=== PATIENT | male | born 1985 | race Caucasian/White ===

== ENCOUNTER 2020-09-04 08:48 | Inpatient (IN) | payer OTHER, SELFPAY ==
--- NOTE | ~2020-09-04 | CT_ITS ---
EXAMINATION: CT ABDOMEN AND PELVIS WITHOUT CONTRAST CLINICAL INFORMATION: Epigastric pain COMPARISON: Previous abdominal ultrasound November 2016 TECHNIQUE: Multidetector volumetric imaging was performed from the superior aspect of the liver through the pubic symphysis. Sagittal and coronal reformatted images were obtained on the technologist's workstation. This CT examination was performed using dose optimization techniques as appropriate, variously including the following: *Automated exposure control *Adjustment of mA and/or kV according to patient size (this includes techniques or standardized protocols for targeted exams where dose is matched to indication/reason for exam; i.e. extremities or head) *Use of iterative reconstruction technique DLP: 919 mGy-cm FINDINGS: LUNG BASES: The visualized lung bases are unremarkable. LIVER, GALLBLADDER, AND BILIARY TREE: The liver is enlarged and low in attenuation consistent with fatty infiltration. The right lobe measures 30 cm in length. The liver is normal in contour. No focal liver lesion is seen. The gallbladder is normal. There is no biliary duct dilatation. PANCREAS: Unremarkable. SPLEEN: Unremarkable. ADRENAL GLANDS: Unremarkable. KIDNEYS AND URETERS: The kidneys are normal in size, shape, and attenuation. No hydronephrosis, hydroureter, or calculi seen. No perinephric stranding. BLADDER: Unremarkable. GASTROINTESTINAL TRACT: There is nonspecific fatty infiltration of the wall of the colon involving the right transverse and left colon. No evidence of active colitis or diverticulitis.. The small and large bowel are otherwise unremarkable. The appendix is unremarkable. The stomach is unremarkable. ABDOMINAL WALL: There is a small umbilical hernia containing fat. LYMPH NODES: Normal. VASCULAR: Unremarkable. PELVIC VISCERA: Unremarkable. OSSEOUS STRUCTURES: There is mild degenerative disc disease at L5-S1. CT/CT abdomen pelvis wo con IMPRESSION: Very enlarged fatty liver. Nonspecific fatty infiltration of the wall of the colon
--- NOTE | ~2020-09-04 | US_ITS ---
EXAMINATION: US ABDOMEN COMPLETE CLINICAL INFORMATION: Alcoholic hepatitis. Increasing T/D bili. Abdominal pain.. COMPARISON: CT dated 09/04/2020 TECHNIQUE: Real-time imaging of the abdominal viscera. FINDINGS: PANCREAS: Normal. ABDOMINAL AORTA: The proximal, mid, and distal segments are normal in caliber. INFERIOR VENA CAVA: Visualized portions are normal. LIVER: Enlarged and diffusely increased in echogenicity compatible with fatty infiltration and/or steatohepatitis. No focal liver lesions. No intra or extrahepatic biliary dilatation. GALLBLADDER: The gallbladder wall along the hepatic parenchyma is thickened and edematous measuring up to 9 mm, likely reactive to hepatocellular disease. No cholelithiasis. COMMON BILE DUCT: Normal in caliber measuring 0.5 cm in diameter. RIGHT KIDNEY: Normal. No hydronephrosis. No renal calculi or focal parenchymal lesions. The kidney measures 13.9 cm in maximum dimension. LEFT KIDNEY: Normal. No hydronephrosis. No renal calculi or focal parenchymal lesions. The kidney measures 12.3 cm in maximum dimension. SPLEEN: Normal. The spleen measures 15.5 cm in maximum dimension. FREE FLUID: None. US/US abdomen complete IMPRESSION: * Hepatomegaly and diffuse fatty infiltration/steatohepatitis. * No intra or extra hepatic biliary dilatation. * Gallbladder wall thickening along the hepatic parenchyma likely reactive to hepatocellular disease. * No cholelithiasis. * Mild splenomegaly.
--- NOTE | 2020-09-04 10:09 | ED.ABDPAIN ---
HPI - Abdominal Pain General Chief Complaint: Abdominal Pain Stated Complaint: pancreatitis Time Seen by Provider: 09/04/20 10:09 Source: patient Mode of arrival: ambulatory Limitations: no limitations History of Present Illness HPI narrative: 34 yo male with ETOH abuse hx of pancreatitis has been on binge x 1 month last drink this AM - c/o worsening pain with n/v x 2 weeks feels like his pancreatitis MD elicited complaint: abdominal pain Pertinent past history: gastritis and other (pancreatitis) Onset (ago): week(s) (2) Pain Consistency: constant Location: epigastric Severity: moderate Quality: sharp Radiation: bilateral flank Migration to: no migration Exacerbating factors: vomiting and movement Relieving factors: nothing Context: history of similar episodes and other (ETOH abuse) Associated symptoms: nausea and vomiting Related Data Home Medications Medication Instructions Recorded Confirmed amlodipine 5 mg PO DAILY 09/04/20 09/04/20 clonazepam 0.5 mg PO BID PRN 09/04/20 09/04/20 escitalopram oxalate 10 mg PO DAILY 09/04/20 09/04/20 gemfibrozil 600 mg PO BIDAC 09/04/20 09/04/20 omeprazole 20 mg PO DAILY 09/04/20 09/04/20 Allergies Allergy/AdvReac Type Severity Reaction Status Date / Time No Known Allergies Allergy Unverified 04/13/20 16:55 [No Known Allergies*] Review of Systems Review of Systems Constitutional : No Weight loss, No Fever, No Chills ENT/Mouth : No sore throat, No Rhinorrhea Eyes: No Swelling, No Redness Cardiovascular : No Chest Pain, No SOB, NoEdema Respiratory : No Cough, No Sputum, No Wheezing Gastrointestinal : Positive Nausea, Positive Vomiting, no Diarrhea, positive abdominal Pain, No Hematochezia, No Melena Genitourinary : No Dysuria, No Urinary Frequency, No Hematuria, No Urgency Musculoskeletal : No joint pain, No Myalgias, No Joint Swelling Skin : No Skin Lesions, No rash Neuro : No Weakness, No Numbness, No Dizziness, No Headache Psych : No Anxiety/Panic, No Depression Heme/Lymph: No Bruising, No Lymphadenopathy Endocrine : No Polyuria, No Polydipsia All other systems reviewed and are negative. Physical Exam Vital Signs: Vital Signs: Last Vital Signs Temp 98.6 F 09/04/20 15:12 Pulse 111 H 09/04/20 15:12 Resp 20 09/04/20 15:12 BP 136/92 H 09/04/20 15:12 Pulse Ox 96 09/04/20 15:12 Body Mass Index 33.5 Appearance: Alert. Oriented X3. Anxious in pain mild acute distress. Eyes: Pupils equal, round and reactive to light. mild yellowing of eyes ENT: Pharynx dry MM Neck: Normal inspection. Neck supple. CVS: tachycardic heart rate and rhythm. Pulses normal. Respiratory: No respiratory distress. Breath sounds normal. Abdomen: Soft and moderate epigastric pain with ttp and guarding no rebound Skin: Skin warm and dry. Normal skin color. Normal skin turgor. Extremities: No lower extremity edema. No calf ttp Neuro: Oriented X 3. No motor deficit. No sensory deficit. slight tremors Course Course Course Narrative: withdrawal symptoms improved, likely ETOH hepatitis new onset change in bili, will admit for further workup at this time, already on phenobarb protocol MDM - Abdominal Pain MDM Narrative Medical decision making narrative: 34 yo male with ETOH abuse binge x 1 month, last drink this AM c/o pain with n/v x 2 weeks feels like pancreatitis, will need labs, IVF x 2L IV ativan and morphine for pain, phenobarb protocol, CT scan to evaluate pancreas - given presentation and exam suspect admission likely. Lab Data Result diagrams: 09/04/20 10:53 09/04/20 10:53 Labs: Lab Results 09/04/20 09/04/20 09/04/20 Range/Units 10:53 10:53 10:53 WBC 3.0 L (4.8-10.8) X10*3/uL RBC 4.29 L (4.60-5.80) X10*6/uL Hgb 13.8 L (14.0-18.0) g/dl Hct 40.9 L (42-52) % MCV 95.3 (80-98) fL MCH 32.2 (27.0-33.0) pg MCHC 33.7 (31.0-36.0) g/dl RDW 13.0 (11.0-16.0) % Plt Count 116 L (160-400) X10*3/uL MPV 10.3 (9.4-12.4) fL Immature Gran % (Auto) 0.7 H (0.0-0.4) % Neut % (Auto) 52.5 (45-73) % Lymph % (Auto) 32.2 (20-40) % [place] % (Auto) 12.3 H (2-11) % Eos % (Auto) 1.0 (0-4) % Baso % (Auto) 1.3 (0-2) % Lymph # (Auto) 1.0 L (1.2-4.9) X10*3/uL [place] # (Auto) 0.4 (0.1-1.2) X10*3/uL Eos # (Auto) 0.0 (0.0-0.4) X10*3/uL Baso # (Auto) 0.0 (0.0-0.2) X10*3/uL Abs Immat Gran (auto) 0.02 (0.00-0.03) X10*3/uL Absolute Neuts (auto) 1.6 L (2.0-8.3) X10*3/uL Absolute Nucleated RBC 0.000 (0.0-0.012) X10*3/uL Nucleated RBC % (auto) 0.0 (0.0-0.2) /100WBC Smear Tech's Comments Not Reportable PT 14.5 H (10.8-13.0) SEC INR 1.2 H (0.9-1.1) APTT 51.3 H (24.1-38.0) SEC Hold Blue Top SEE NOTE Sodium 135 (135-145) mmol/L Potassium 3.9 (3.3-5.1) mmol/L Chloride 97 (96-108) mmol/L Carbon Dioxide 24 (22-29) mmol/L Anion Gap 18 (12-20) BUN 2 L (9-16) mg/dL Creatinine 0.65 (0.5-1.4) mg/dL Estim Creat Clear Calc 204.9 Estimated GFR > 60 Random Glucose 295 H (60-115) mg/dL Lactic Acid (0.5-2.0) mmol/L Calcium 8.3 L (8.4-10.2) mg/dL Magnesium 1.9 (1.6-2.6) mg/dL Total Bilirubin 4.9 H (0.0-1.0) mg/dL Direct Bilirubin 3.6 H (0.0-0.5) mg/dL AST 323 H (5-37) U/L ALT 123 H (0-40) U/L Alkaline Phosphatase 243 H (39-117) U/L Lactate Dehydrogenase 516 H (118-273) U/L Total Protein 7.6 (6.5-8.0) g/dL Albumin 3.8 (3.5-5.0) g/dL Lipase (8-78) U/L Urine Opiates Screen (Not Detect) Ur Barbiturates Screen (Not Detect) Ur Phencyclidine Scrn (Not Detect) Ur Amphetamines Screen (Not Detect) U Benzodiazepines Scrn (Not Detect) Urine Cocaine Screen (Not Detect) U Marijuana (THC) Screen (Not Detect) Ethyl Alcohol mg/dL COVID-19 ([facility]) (Negative) COVID-19 Clin Com 09/04/20 09/04/20 09/04/20 Range/Units 10:53 10:53 10:53 WBC (4.8-10.8) X10*3/uL RBC (4.60-5.80) X10*6/uL Hgb (14.0-18.0) g/dl Hct (42-52) % MCV (80-98) fL MCH (27.0-33.0) pg MCHC (31.0-36.0) g/dl RDW (11.0-16.0) % Plt Count (160-400) X10*3/uL MPV (9.4-12.4) fL Immature Gran % (Auto) (0.0-0.4) % Neut % (Auto) (45-73) % Lymph % (Auto) (20-40) % [place] % (Auto) (2-11) % Eos % (Auto) (0-4) % Baso % (Auto) (0-2) % Lymph # (Auto) (1.2-4.9) X10*3/uL [place] # (Auto) (0.1-1.2) X10*3/uL Eos # (Auto) (0.0-0.4) X10*3/uL Baso # (Auto) (0.0-0.2) X10*3/uL Abs Immat Gran (auto) (0.00-0.03) X10*3/uL Absolute Neuts (auto) (2.0-8.3) X10*3/uL Absolute Nucleated RBC (0.0-0.012) X10*3/uL Nucleated RBC % (auto) (0.0-0.2) /100WBC Smear Tech's Comments PT (10.8-13.0) SEC INR (0.9-1.1) APTT (24.1-38.0) SEC Hold Blue Top Sodium (135-145) mmol/L Potassium (3.3-5.1) mmol/L Chloride (96-108) mmol/L Carbon Dioxide (22-29) mmol/L Anion Gap (12-20) BUN (9-16) mg/dL Creatinine (0.5-1.4) mg/dL Estim Creat Clear Calc Estimated GFR Random Glucose (60-115) mg/dL Lactic Acid (0.5-2.0) mmol/L Calcium (8.4-10.2) mg/dL Magnesium (1.6-2.6) mg/dL Total Bilirubin (0.0-1.0) mg/dL Direct Bilirubin (0.0-0.5) mg/dL AST (5-37) U/L ALT (0-40) U/L Alkaline Phosphatase (39-117) U/L Lactate Dehydrogenase (118-273) U/L Total Protein (6.5-8.0) g/dL Albumin (3.5-5.0) g/dL Lipase 23 (8-78) U/L Urine Opiates Screen (Not Detect) Ur Barbiturates Screen (Not Detect) Ur Phencyclidine Scrn (Not Detect) Ur Amphetamines Screen (Not Detect) U Benzodiazepines Scrn (Not Detect) Urine Cocaine Screen (Not Detect) U Marijuana (THC) Screen (Not Detect) Ethyl Alcohol 90 mg/dL COVID-19 ([facility]) Negative (Negative) COVID-19 Clin Com See Note 09/04/20 09/04/20 Range/Units 10:53 12:48 WBC (4.8-10.8) X10*3/uL RBC (4.60-5.80) X10*6/uL Hgb (14.0-18.0) g/dl Hct (42-52) % MCV (80-98) fL MCH (27.0-33.0) pg MCHC (31.0-36.0) g/dl RDW (11.0-16.0) % Plt Count (160-400) X10*3/uL MPV (9.4-12.4) fL Immature Gran % (Auto) (0.0-0.4) % Neut % (Auto) (45-73) % Lymph % (Auto) (20-40) % [place] % (Auto) (2-11) % Eos % (Auto) (0-4) % Baso % (Auto) (0-2) % Lymph # (Auto) (1.2-4.9) X10*3/uL [place] # (Auto) (0.1-1.2) X10*3/uL Eos # (Auto) (0.0-0.4) X10*3/uL Baso # (Auto) (0.0-0.2) X10*3/uL Abs Immat Gran (auto) (0.00-0.03) X10*3/uL Absolute Neuts (auto) (2.0-8.3) X10*3/uL Absolute Nucleated RBC (0.0-0.012) X10*3/uL Nucleated RBC % (auto) (0.0-0.2) /100WBC Smear Tech's Comments PT (10.8-13.0) SEC INR (0.9-1.1) APTT (24.1-38.0) SEC Hold Blue Top Sodium (135-145) mmol/L Potassium (3.3-5.1) mmol/L Chloride (96-108) mmol/L Carbon Dioxide (22-29) mmol/L Anion Gap (12-20) BUN (9-16) mg/dL Creatinine (0.5-1.4) mg/dL Estim Creat Clear Calc Estimated GFR Random Glucose (60-115) mg/dL Lactic Acid 3.4 H* (0.5-2.0) mmol/L Calcium (8.4-10.2) mg/dL Magnesium (1.6-2.6) mg/dL Total Bilirubin (0.0-1.0) mg/dL Direct Bilirubin (0.0-0.5) mg/dL AST (5-37) U/L ALT (0-40) U/L Alkaline Phosphatase (39-117) U/L Lactate Dehydrogenase (118-273) U/L Total Protein (6.5-8.0) g/dL Albumin (3.5-5.0) g/dL Lipase (8-78) U/L Urine Opiates Screen POSITIVE H (Not Detect) Ur Barbiturates Screen Not Detected (Not Detect) Ur Phencyclidine Scrn Not Detected (Not Detect) Ur Amphetamines Screen Not Detected (Not Detect) U Benzodiazepines Scrn Not Detected (Not Detect) Urine Cocaine Screen Not Detected (Not Detect) U Marijuana (THC) Screen Not Detected (Not Detect) Ethyl Alcohol mg/dL COVID-19 ([facility]) (Negative) COVID-19 Clin Com Critical Care Time Critical Care Time Critical Care Time: Yes Total Critical Care Time: 60 Attestation: IVF x 2L , phenobarb protocol, review of records, rn cardiac rehab I attest to this time spent taking care of the patient Discharge Plan Discharge Clinical Impression: Acute alcoholic hepatitis Alcohol withdrawal Qualifiers: Complication of substance-induced condition: uncomplicated Qualified Code(s): F10.230 - Alcohol dependence with withdrawal, uncomplicated Nausea & vomiting Qualifiers: Vomiting type: unspecified Vomiting Intractability: non-intractable Qualified Code(s): R11.2 - Nausea with vomiting, unspecified Patient Disposition: Admitted As Inpatient [facility] Past Medical History Attestation statement: The following information was validated with the patient. Medical History (Updated 09/04/20 @ 14:31 by JERMAN Salcido) Alcoholism Anxiety Depression Hypertension with normal renal function Pancreatitis Family History Family History Other HTN (hypertension) Social History Social History (Updated 09/04/20 @ 14:32 by JERMAN Salcido) Alcohol intake: current Alcohol intake frequency: 3 or more drinks per day Smoking Status: Current every day smoker Cigarettes Per Day: 4 Use of substances other than those prescribed or required for medical reasons: No Substance Use Type: Marijuana Advance Directives: No Advance Directives Information Provided: No
[2020-09-04 10:19] VITALS: BP 135/93; PULSE 116; RESP 18; O2SAT 96; BMI 33.5
[2020-09-04 11:04] LABS: Imm Gran Abs Auto 0.02 X10*3/uL (0.00-0.03); MANUAL DIFF FLAG SCAN; Monocytes Percent Auto 12.3 % (2-11); Neutrophils Absolute Auto 1.6 X10*3/uL (2.0-8.3); PLT CLUMP 1; Red Blood Count 4.29 X10*6/uL (4.60-5.80); SCAN SMEAR FLAG 1
[2020-09-04 11:06] LABS: Basophils Percent Auto 1.3 % (0-2); Hematocrit 40.9 % (42-52); Hemoglobin 13.8 g/dl (14.0-18.0); Imm Gran Pct Auto 0.7 % (0.0-0.4); Lymphocytes Percent Auto 32.2 % (20-40); Mean Corpuscular HGB Conc 33.7 g/dl (31.0-36.0); Mean Corpuscular Hemoglobin 32.2 pg (27.0-33.0); Mean Corpuscular Volume 95.3 fL (80-98); Mean Platelet Volume 10.3 fL (9.4-12.4); Monocytes Absolute Auto 0.4 X10*3/uL (0.1-1.2); Neutrophils Percent Auto 52.5 % (45-73); Platelet Count 116 X10*3/uL (160-400)
[2020-09-04 11:07] LABS: INTERNATIONAL NORM RATIO 1.2 (0.9-1.1); Prothrombin Time 14.5 SEC (10.8-13.0)
[2020-09-04] MEDS: LORazepam 2 MG/ML VIAL 1 MG IVPUSH (11:07)
[2020-09-04] MEDS: ondansetron HCL 4 MG/2 ML VIAL IVPUSH (11:07)
[2020-09-04] MEDS: PHENobarbitaL sodium 130 MG/ML VIAL 310 MG IM (11:08)
[2020-09-04] MEDS: Morphine Sulfate 4 MG/ML CARTRIDGE IVPUSH (11:08)
[2020-09-04] MEDS: 0.9 % Sodium Chloride 1,000 ML 999 ML IVCONT ×2 (11:09→14:41)
[2020-09-04 11:10] LABS: Partial Thromboplastin Time 51.3 SEC (24.1-38.0)
[2020-09-04 11:16] LABS: COVID-19 Test Negative (Negative)
[2020-09-04 11:21] LABS: Ethanol 90 mg/dL
[2020-09-04 11:24] LABS: Lipase 23 U/L (8-78)
[2020-09-04 11:26] LABS: Alanine Aminotransferase 123 U/L (0-40); Albumin Level 3.8 g/dL (3.5-5.0); Alkaline Phosphatase 243 U/L (39-117); Anion Gap 18 (12-20); Aspartate Amino Transferase 323 U/L (5-37); Bilirubin Direct 3.6 mg/dL (0.0-0.5); Bilirubin Total 4.9 mg/dL (0.0-1.0); Blood Urea Nitrogen 2 mg/dL (9-16); Calcium 8.3 mg/dL (8.4-10.2); Carbon Dioxide 24 mmol/L (22-29); Chloride 97 mmol/L (96-108); Creatinine Clr Calc Pharmacy 204.9; Estimated Glomerular Filt Rate > 60; Glucose Random 295 mg/dL (60-115); Lactate Dehydrogenase 516 U/L (118-273); Magnesium 1.9 mg/dL (1.6-2.6); Potassium 3.9 mmol/L (3.3-5.1); Sodium 135 mmol/L (135-145); Total Protein 7.6 g/dL (6.5-8.0)
[2020-09-04 11:27] LABS: Lactic Acid 3.4 mmol/L (0.5-2.0)
[2020-09-04 12:46] VITALS: BP 150/94; PULSE 111; RESP 18; O2SAT 97
[2020-09-04 12:57] LABS: Reflex Lactate? Lactic Acid Added
[2020-09-04 13:35] LABS: Amphetamine Screen Urine Not Detected (Not Detect); Barbiturates, Urine Not Detected (Not Detect); Benzodiazepines Screen Urine Not Detected (Not Detect); Cannabinoid Screen Urine Not Detected (Not Detect); Cocaine Screen Urine Not Detected (Not Detect); Opiate Screen Urine POSITIVE (Not Detect); Phencyclidine Screen Urine Not Detected (Not Detect)
--- NOTE | 2020-09-04 14:27 | P.HPHOSP_ITS ---
History of Present Illness Date of Service: 09/04/20 Chief Complaint: abdominal pain This is a 34-year-old male with history of alcohol abuse who presents to the emergency department with abdominal pain. Patient has had several weeks of mild abdominal pain which has increased over the past few days. He reports e pigastric abdominal pain associated with nausea, vomiting. He had 1 episode with blood tinged emesis and this prompted him to come to the hospital for evaluation. He has had difficulty tolerating any liquid or solids. For the past several months he has been drinking heavily. Prior to that he had a year of sobriety but has been bingeing on and off for the past several years. Today in the emergency department he underwent a CT scan of the abdomen which did not show evidence of pancreatitis. His lab work was however abnormal with elevation in his liver function tests. He was started on phenobarbital for prevention of alcohol withdrawal. He also received IV fluid and decision was made to admit him for further management. Review of Systems Review of Systems: Yes all other systems are reviewed and are negative Constitutional: Constitutional: Denies chills and Denies fever(s) Cardiovascular: Cardiovascular: Denies chest pain and Denies dyspnea Respiratory: Respiratory: Denies cough and Denies dyspnea Gastrointestinal: Gastrointestinal: Reports abdominal pain, Reports loose stools, Reports nausea and Reports vomiting Genitourinary: Genitourinary: Denies dysuria [facility] Medical History (Updated 09/04/20 @ 14:31 by JERMAN Salcido) Alcoholism Anxiety Depression Hypertension with normal renal function Pancreatitis Functional capacity: independent ambulation Family History Other HTN (hypertension) Family history: reviewed and not pertinent Social History (Updated 09/04/20 @ 14:32 by JERMAN Salcido) Alcohol intake: current Alcohol intake frequency: 3 or more drinks per day Smoking Status: Current every day smoker Cigarettes Per Day: 4 Use of substances other than those prescribed or required for medical reasons: Yes Substance Use Type: Marijuana Advance Directives: No Advance Directives Information Provided: No Meds Allergies Allergy/AdvReac Type Severity Reaction Status Date / Time No Known Allergies Allergy Unverified 04/13/20 16:55 [No Known Allergies*] Physical Exam Vital Signs and Narrative: Vital Signs: Last Vital Signs Pulse 111 H 09/04/20 12:46 Resp 18 09/04/20 12:46 BP 150/94 H 09/04/20 12:46 Pulse Ox 97 09/04/20 12:46 Body Mass Index 33.5 Const: General: alert and awake Nutritional Appearance: overweight Orientation/consciousness: patient oriented x3 HENMT: Head: Yes normocephalic and Yes atraumatic Eyes: Sclerae: sclerae normal Chest: Chest palpation & inspection: normal inspection of the chest Resp: Effort & Inspection: normal respiratory effort and no respiratory distress Auscultation: clear to auscultation bilaterally Cardio: Rate: regular rate Rhythm: regular rhythm GI: Other: tender to palpation, epigastric region; non-distended Palpation (GI): Soft to palpation Skin: General skin exam: no rashes or lesions noted Neuro: General: patient oriented x3 Cranial nerves: Yes CN's II-XII intact bilaterally and Yes Bilaterally intact EOM present Extrem: General: Yes normal to inspection Results Labs CBC and Chem 7: 09/04/20 10:53 09/04/20 10:53 Labs: Laboratory Results - last 24 hr 09/04/20 09/04/20 09/04/20 10:53 10:53 10:53 MCV 95.3 MCH 32.2 MCHC 33.7 RDW 13.0 Plt Count 116 L MPV 10.3 Immature Gran % (Auto) 0.7 H Neut % (Auto) 52.5 Lymph % (Auto) 32.2 [place] % (Auto) 12.3 H Eos % (Auto) 1.0 Baso % (Auto) 1.3 Lymph # (Auto) 1.[address] [place] # (Auto) 0.4 Eos # (Auto) 0.0 Baso # (Auto) 0.0 Abs Immat Gran (auto) 0.02 Absolute Neuts (auto) 1.6 L Absolute Nucleated RBC 0.000 Nucleated RBC % (auto) 0.0 Smear Tech's Comments Not Reportable PT 14.5 H INR 1.2 H APTT 51.3 H Hold Blue Top SEE NOTE Anion Gap 18 Estim Creat Clear Calc 204.9 Estimated GFR > 60 Random Glucose 295 H Lactic Acid Calcium 8.3 L Magnesium 1.9 Total Bilirubin 4.9 H Direct Bilirubin 3.6 H AST 323 H ALT 123 H Alkaline Phosphatase 243 H Lactate Dehydrogenase 516 H Total Protein 7.6 Albumin 3.8 Lipase Urine Opiates Screen Ur Barbiturates Screen Ur Phencyclidine Scrn Ur Amphetamines Screen U Benzodiazepines Scrn Urine Cocaine Screen U Marijuana (THC) Screen Ethyl Alcohol COVID-19 ([facility]) COVID-19 Util[facility] Com 09/04/20 09/04/20 09/04/20 10:53 10:53 10:53 MCV MCH MCHC RDW Plt Count MPV Immature Gran % (Auto) Neut % (Auto) Lymph % (Auto) [place] % (Auto) Eos % (Auto) Baso % (Auto) Lymph # (Auto) [place] # (Auto) Eos # (Auto) Baso # (Auto) Abs Immat Gran (auto) Absolute Neuts (auto) Absolute Nucleated RBC Nucleated RBC % (auto) Smear Tech's Comments PT INR APTT Hold Blue Top Anion Gap Estim Creat Clear Calc Estimated GFR Random Glucose Lactic Acid Calcium Magnesium Total Bilirubin Direct Bilirubin AST ALT Alkaline Phosphatase Lactate Dehydrogenase Total Protein Albumin Lipase 23 Urine Opiates Screen Ur Barbiturates Screen Ur Phencyclidine Scrn Ur Amphetamines Screen U Benzodiazepines Scrn Urine Cocaine Screen U Marijuana (THC) Screen Ethyl Alcohol 90 COVID-19 ([facility]) Negative COVID-19 Util[facility] Com See Note 09/04/20 09/04/20 10:53 12:48 MCV MCH MCHC RDW Plt Count MPV Immature Gran % (Auto) Neut % (Auto) Lymph % (Auto) [place] % (Auto) Eos % (Auto) Baso % (Auto) Lymph # (Auto) [place] # (Auto) Eos # (Auto) Baso # (Auto) Abs Immat Gran (auto) Absolute Neuts (auto) Absolute Nucleated RBC Nucleated RBC % (auto) Smear Tech's Comments PT INR APTT Hold Blue Top Anion Gap Estim Creat Clear Calc Estimated GFR Random Glucose Lactic Acid 3.4 H* Calcium Magnesium Total Bilirubin Direct Bilirubin AST ALT Alkaline Phosphatase Lactate Dehydrogenase Total Protein Albumin Lipase Urine Opiates Screen POSITIVE H Ur Barbiturates Screen Not Detected Ur Phencyclidine Scrn Not Detected Ur Amphetamines Screen Not Detected U Benzodiazepines Scrn Not Detected Urine Cocaine Screen Not Detected U Marijuana (THC) Screen Not Detected Ethyl Alcohol COVID-19 ([facility]) COVID-19 Clin Com Imaging Radiologist's Impressions: Impressions Abdomen/Pelvis CT 09/04/20 10:25 IMPRESSION: Very enlarged fatty liver. Nonspecific fatty infiltration of the wall of the colon Assessment and Plan (1) Alcohol withdrawal: Qualifiers: Complication of substance-induced condition: uncomplicated Qualified Code(s): F10.230 - Alcohol dependence with withdrawal, uncomplicated Status: Acute (2) Acute alcoholic hepatitis: Status: Acute (3) Nausea & vomiting: Qualifiers: Vomiting Intractability: non-intractable Vomiting type: unspecified Qualified Code(s): R11.2 - Nausea with vomiting, unspecified Status: Acute This is a 34-year-old male with a history of alcohol abuse who presents to the emergency department with abdominal pain found to have abnormal liver function tests Abdominal pain No evidence of pancreatitis, normal lipase likely gastritis from etoh use-iv pepcid, ivf, clear liquid diet- ADAT etoh hepatitis Discriminant function 16.4, no indication for steroids supportive care trend LFTs, INR GI eval alcohol withdrawal continue phenobarbital started in ED thiamine and folate supplementation CARE team eval prior to discharge follow electrolytes pancytopenia r/t liver dysfunction follow cbc elevated lactic acid likely secondary to liver dysfunction no evidence of sepsis dvt ppx - boots code status - full code this case was discussed with Dr. Dave
[2020-09-04] MEDS: PHENobarbitaL sodium 130 MG/ML VIAL 230 MG IM ×2 (14:44→16:57)
[2020-09-04 15:12] VITALS: BP 136/92; PULSE 111; RESP 20; TEMP 37; O2SAT 96
[2020-09-04 16:42] LABS: Reflex Lactate? 2 Y
[2020-09-04 17:33] VITALS: BP 119/78; PULSE 102; RESP 19; TEMP 36.8; O2SAT 97
--- NOTE | 2020-09-04 17:51 | PM.EVENT ---
Event Note Date of Service: 09/04/20 Event Note: addendum to H+P by JERMAN Marcus I interviewed and examined the patient. I discussed their presentation and management with the mid-level provider. I reviewed the history and physical and agree with the documentation, with the following additions and corrections: 34yo M with HTN, EtOH abuse [1qt vodka/d] and prior EtOH withdrawal + pancreatitis presenting with several days of worsening abd pain and 1 episode of hematemesis on exam: VS T 98.2, P 102, R 19, BP 119/78, SaO2 97 on RA gen NAD sclera anicteric lungs clear CV tachycardic no m/r/g abd soft/obese, tender epigastrium, no rebound ext no edema neuro no focal findings labs notable for mild pancytopenia, INR 1.2, SCr 0.65, LA 3.4->3, Tbili 4.9, AST 323, ALT 123, LDH 516, lipase 23 CT A/P enlarged fatty liver, no pancreatitis impression of EtOH hepatitis + EtOH gastritis + withdrawal plan admit to M/S, give phenobarbital + vitamins, IV fluids, GI consult, PPI
--- NOTE | 2020-09-04 18:40 | MHC.CM.PN ---
Addendum entered by Nhung Carter 09/04/20 18:49: [place] text to Suzi STOLL to place referral to CARE Team. Original Note: Cm met with pt. A&Ox3. Pt lives with a roommate who has been sober x5 years. Pt has recurrent relapses and states he has had long periods of sobriety. 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 States the pandemic and the isolation have been really hard on him. States he has support groups he can contact and that his parents are very supportive. Offered graduation coach and recovery services, but pt declined. Again says he has people he can call and has a 1:1 therapist. CM gently suggested that this plan hasn't been working so well for him, given that he is being hospitalized and maybe he needs a different plan. Will place referral to Recovery services and CARE team. Pt request HCP be made. HCP Mary Lo (mother) [phone] and secondary, Jaime Teresita (father) [phone]. CM to follow for d/c needs.
[2020-09-04 20:38] VITALS: BP 122/87; PULSE 98; RESP 18; TEMP 36.7; O2SAT 99
[2020-09-04 21:30] LABS: ~Lactic Acid-LAB USE ONLY 2.5 mmol/L (0.5-2.0)
--- NOTE | 2020-09-04 23:10 | PC.NURSE ---
PT C/O ABD PAIN. MD AWARE AND PT MEDICATED WITH MORPHINE FOR PAIN. WILL CONTINUE TO MONITOR PT.
[2020-09-05] VITALS (9 sets, daily range): BP systolic 124–147; BP diastolic 81–94; PULSE 87–96; RESP 16–18; TEMP 36.8–36.9; O2SAT 97–99; BMI 33.5
[2020-09-05] MEDS: Morphine Sulfate 4 MG/ML CARTRIDGE IVPUSH (00:24)
--- NOTE | 2020-09-05 02:30 | PC.NURSE ---
NS UP AND RUNNING SITE INTACT. WILL CONTINUE TO MONITOR PT. PT AWAITING FOR ROOM ASSIGNMENT.
[2020-09-05] MEDS: Morphine Sulfate 2 MG/ML CARTRIDGE IVPUSH ×4 (03:46→20:57)
[2020-09-05] MEDS: 0.9 % Sodium Chloride Flush 3 ML SYRINGE IVFLUSH ×2 (04:46→16:16)
[2020-09-05] MEDS: 0.9 % Sodium Chloride 1,000 ML 125 ML IVCONT ×2 (04:46→16:17)
--- NOTE | 2020-09-05 05:41 | PC.NURSE ---
PT SLEEPING, WAKES TO VERBAL STIMULI, RESPIRATIONS EASY, N/L. SKIN W/D. PT DENIES ANY COMPLAINTS. NS UP AND RUNNING ON PUMP.
--- NOTE | 2020-09-05 06:06 | PC.NURSE ---
PT RESTING IN STRETCHER. SKIN W/D. PT DENIES ANY COMPLAINTS/PAIN. WILL CONTINUE TO MONITOR PT.
[2020-09-05 06:48] LABS: Hematocrit 38.1 % (42-52); Hemoglobin 12.6 g/dl (14.0-18.0); Mean Corpuscular HGB Conc 33.1 g/dl (31.0-36.0); Mean Corpuscular Hemoglobin 32.6 pg (27.0-33.0); Mean Corpuscular Volume 98.7 fL (80-98); Mean Platelet Volume 10.4 fL (9.4-12.4); Red Blood Count 3.86 X10*6/uL (4.60-5.80); Red Cell Distribution Width 13.2 % (11.0-16.0); White Blood Count 3.3 X10*3/uL (4.8-10.8)
[2020-09-05 06:52] LABS: Platelet Count 91 X10*3/uL (160-400)
[2020-09-05 07:02] LABS: INTERNATIONAL NORM RATIO 1.2 (0.9-1.1); Prothrombin Time 14.7 SEC (10.8-13.0)
[2020-09-05 07:12] LABS: Alanine Aminotransferase 96 U/L (0-40); Albumin Level 3.3 g/dL (3.5-5.0); Alkaline Phosphatase 198 U/L (39-117); Anion Gap 14 (12-20); Aspartate Amino Transferase 254 U/L (5-37); Bilirubin Total 6.8 mg/dL (0.0-1.0); Blood Urea Nitrogen 2 mg/dL (9-16); Calcium 7.5 mg/dL (8.4-10.2); Carbon Dioxide 26 mmol/L (22-29); Chloride 98 mmol/L (96-108); Creatinine Clr Calc Pharmacy 198.8; Estimated Glomerular Filt Rate > 60; Glucose Random 167 mg/dL (60-115); Magnesium 1.5 mg/dL (1.6-2.6); Potassium 4.1 mmol/L (3.3-5.1); Sodium 134 mmol/L (135-145); Total Protein 6.3 g/dL (6.5-8.0)
[2020-09-05] MEDS: Thiamine HCL 100 MG TABLET PO (08:50)
[2020-09-05] MEDS: Famotidine/PF 20 MG/2 ML VIAL IVPUSH (08:50)
[2020-09-05] MEDS: Magnesium Oxide 400 MG TABLET PO ×2 (08:50→16:16)
[2020-09-05] MEDS: PHENobarbitaL 30 MG TABLET 60 MG PO ×2 (08:50→20:54)
[2020-09-05] MEDS: Folic Acid 1 MG TABLET PO (08:50)
--- NOTE | 2020-09-05 10:51 | MHC.RECOVSUP ---
Recovery Support note: Patient is a 34 year old Niuean speaking male who presented to [facility] ED due to alcohol use and abdominal pain and was medically admitted. This rewriter met with patient in to discuss his alcohol use and treatment options. Patient was laying down in the hospital bed watching television when this rewriter entered the room. Patient was agreeable to consultation. Patient reports his alcohol use has been problematic for him since ' and that there is family history of alcoholism. Patient reports he has gone to [facility] in the past and has had periods of sobriety lasting over a year. Patient reports he has struggled with anxiety and depression in the past and that he would use alcohol to cope. Patient reports he has been in therapy for years and has developed coping skills for his anxiety and he reports treatment has been helpful. Patient reports that he was living alone at the start of the pandemic and was relying on AA meetings for support. When the AA meetings stopped, patient felt increasingly isolated. Patient reports that his work is stressful and that he started drinking again due to the isolation and stress. Patient reports he was too ashamed to seek help. Patient reports he now has a roommate who is 5 years sober and very supportive of patient's recovery. Patient reports his job is very understanding of the situation and that they are all rooting for him. Discussed virtual and in-person AA groups with patient and provided patient with information on these resources. Discussed IOP with patient. Patient was familiar and reports that he is in a dual diagnosis program through [facility] where he gets outpatient therapy. Discussed medications for alcohol use disorder. Patient was familiar and reports he has tried naltrexone in the past however did not find it helpful and reports that it interacted poorly with other medications he was prescribed. Encouraged patient to utilize the supports he has in place and to consider trying virtual AA groups if he cannot get to in-person groups. Patient was receptive of resources offered and has a positive outlook on his recovery moving forward. Discussed consultation with patient's RN, October.
--- NOTE | 2020-09-05 14:49 | P.PNIM_ITS ---
Subjective Subjective Date of Service: 09/05/20 Interval History: abd pain somewhat improved anxious no further hematemesis Physical Exam 2 Vital Signs: Vital Signs: Last Vital Signs Temp 98.4 F 09/05/20 13:47 Pulse 91 09/05/20 13:47 Resp 18 09/05/20 13:47 BP 141/86 H 09/05/20 13:47 Pulse Ox 99 09/05/20 13:47 Body Mass Index 33.5 Gen: in no acute distress HEENT: sclera anicteric, moist mucus membranes Neck: supple Lungs: clear to auscultation bilaterally Heart: regular rate and rhythm, no murmurs Abd: soft, mild epigastric tenderness without rebound, non-distended Ext: no edema Skin: warm/well-perfused Neuro: alert and oriented x3, no focal findings Psych: appropriate affect Objective Data Current Medications Generic Name Dose Route Start Last Admin Trade Name Freq PRN Reason Stop Dose Admin Docusate Sodium 100 mg 09/05/20 00:11 Docusate Sodium 100 Mg Capsule PO DAILY PRN Constipation Famotidine 20 mg 09/05/20 09:00 09/05/20 08:50 Famotidine/Pf 20 Mg/2 Ml Vial IVPUSH 20 mg DAILY DAX Administration Folic Acid 1 mg 09/05/20 09:00 09/05/20 08:50 Folic Acid 1 Mg Tablet PO 1 mg DAILY DAX Administration Hydroxyzine HCl 50 mg 09/05/20 07:37 Hydroxyzine Hcl 50 Mg Tablet PO Q6H PRN anxiety Sodium Chloride 1,000 mls @ 125 mls/hr 09/05/20 00:11 09/05/20 12:48 Ns IVCONT Infused .Q8H DAX Infusion Influenza Virus Vaccine Quadrival 0.5 ml 09/06/20 09:00 Flu Vacc [id number](6mos Up)/Pf 0.5 Ml Syringe IM 09/06/20 09:01 .ONCE ONE Magnesium Oxide 400 mg 09/05/20 08:30 09/05/20 08:50 Magnesium Oxide 400 Mg Tablet PO 400 mg BIDPC DAX Administration Medication 1 each 09/05/20 09:00 No Benzodiazepines MISCELLANE DAILY DAX Morphine Sulfate 2 mg 09/05/20 00:11 09/05/20 12:50 Morphine Sulfate 2 Mg/Ml Cartridge IVPUSH 2 mg Q4H PRN Administration Pain, Severe (Pain Scale 7-10) Ondansetron HCl 4 mg 09/05/20 00:11 Ondansetron Hcl 4 Mg/2 Ml Vial IVPUSH Q8H PRN Nausea and Vomiting Pharmacy Consult 1 each 09/04/20 15:34 Consult Rx Perform Med Rec MISCELLANE ONCE PRN Consult order Phenobarbital 60 mg 09/05/20 09:00 09/05/20 08:50 Phenobarbital 30 Mg Tablet PO 09/06/20 21:01 60 mg BID DAX Administration Phenobarbital 30 mg 09/07/20 09:00 Phenobarbital 30 Mg Tablet PO 09/08/20 21:01 BID DAX Phenobarbital 30 mg 09/09/20 09:00 Phenobarbital 30 Mg Tablet PO 09/10/20 09:01 DAILY DAX Sodium Chloride 3 ml 09/05/20 00:11 09/05/20 07:07 0.9 % Sodium Chloride Flush 3 Ml Syringe IVFLUSH Not Given QSHIFT DAX Thiamine HCl 100 mg 09/05/20 09:00 09/05/20 08:50 Thiamine Hcl 100 Mg Tablet PO 100 mg DAILY DAX Administration Labs CBC & Chem 7: 09/05/20 06:16 09/05/20 06:16 Assessment and Plan (1) Alcohol withdrawal: Status: Acute (2) Acute alcoholic hepatitis: Status: Acute Assessment and Plan: hospital d#2 34yo M with HTN, EtOH abuse with prior withdrawal + pancreatitis admitted for EtOH hepatitis + withdrawal # EtOH hepatitis - MDF low, no steroids or pentoxyfilline indicated. GI consult. monitor LFTs. HBV/HCV screen. sobriety. # EtOH gastritis - IV H2RA # EtOH withdrawal - phenobarbital taper, vitamins, counseling # hypoMg - replete, monitor # VTE ppx - SCDs
--- NOTE | 2020-09-05 15:00 | PM.GICN ---
History of Present Illness Data of Consult Service Date: 09/05/20 Requesting physician: Romy Dave Primary Care Provider: John Penny MD HPI Reason for consult: Alcoholic hepatitis. 34-year-old male with known history alcohol abuse seen at [facility] on 09/04/2020: 34 yo male with ETOH abuse hx of pancreatitis has been on binge x 1 month last drink this AM - c/o worsening pain with n/v x 2 weeks feels like his pancreatitis MD elicited complaint: abdominal pain Pertinent past history: gastritis and other (pancreatitis) IMAGING STUDIES: 09/04/[address] SCAN SHOWED: Very enlarged fatty liver. Nonspecific fatty infiltration of the wall of the colon TODAY'S VISIT: Pt notes improvement in nausea and vomiting and has been tolerating a liquid diet. He continues to have abdominal pain which has improved since admission. Patient takes Pepcid for chronic heartburn and denies dysphagia. He denies recent change in bowel habits, constipation, diarrhea, black stools or rectal bleeding. He notes he has been passing dark urine with increased urinary frequency. Pt has a hx of ETOH abuse and was sober for 1 year after going through in-patient rehab at [place]. Relapse end of April since he was living by himself. He admits to drinking 1 litre of whiskey daily for the past month. Smokes 4 cigarettes a day and trying to quit. Denies being on chronic anticoagulation. 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 FAMILY HX: Patient admits to known hx of colon cancer in his paternal GM in her 70's. An aunt has Crohn's disease. Review of Systems Constitutional: Constitutional: Denies fever(s), Denies headache(s), Reports weight gain and Denies weight loss Eyes: Eyes: Denies eye discharge and Denies irritation ENT: Reports Normal hearing present, Denies dysphagia, Denies dizziness and Denies headache(s) Cardiovascular: Cardiovascular: Denies chest pain, Denies leg edema and Denies dyspnea on exertion Respiratory: Respiratory: Denies cough and Denies dyspnea on exertion Gastrointestinal: Gastrointestinal: Reports abdominal pain, Denies change in bowel habits, Denies dysphagia, Denies heartburn, Reports loose stools, Reports nausea and Reports vomiting Genitourinary: Genitourinary: Denies dysuria and Reports nocturia Musculoskeletal: Musculoskeletal: Denies back pain and Denies arthralgias Integumentary/Breasts: Skin/Breast: Denies pruritus, Denies rash and Denies jaundice Neurologic: Reports Normal hearing present, Denies Abnormal speech present, Denies dizziness, Denies headache(s) and Denies seizure-like activity Psychiatric: Psychiatric: Reports anxiety, Reports depression and Denies panic attacks Endocrine: Endocrine: Denies cold intolerance, Denies flushing and Denies heat intolerance PMFSH Past Medical History Medical History (Updated 09/04/20 @ 14:31 by JERMAN Salcido) Alcoholism Anxiety Depression Hypertension with normal renal function Pancreatitis Functional capacity: independent ambulation Family History Family History Other HTN (hypertension) Family history: reviewed and not pertinent Social History Social History (Updated 09/04/20 @ 14:32 by JERMAN Salcido) Household Members: Other Household Members Other:: roomate Housing: Apartment Do you presently have visiting nurse or other home services: No Alcohol intake: current Alcohol intake frequency: 3 or more drinks per day Smoking Status: Current every day smoker Tobacco Type: Cigarette Cigarettes Per Day: 3 Smoked in Last 30 Days: Yes Patient Interested in Nicotine Replacement: No Patient Given Instructions on How to Stop Smoking: Yes Date Education Initiated: 09/05/20 Use of substances other than those prescribed or required for medical reasons: No Substance Use Type: Marijuana Currently Displaying Signs/Symptoms of Drug Intoxication Withdrawal: No Have you been hit, kicked, punched, or otherwise hurt by someone within the past year? If so, by whom?: No Do you feel safe in your current relationship?: No Current Relationship Is there a partner from a previous relationship who is making you feel unsafe now?: No Advance Directives: No Advance Directives Information Provided: No Do you have thoughts of harming others: None Do you have a plan to hurt others: No Plan Recently lost weight without trying: No service: No Current occupational status: employed Meds Allergies Allergy/AdvReac Type Severity Reaction Status Date / Time No Known Allergies Allergy Verified 09/05/20 09:09 [No Known Allergies*] Active Medications: Active Medications Generic Name Dose Route Start Last Admin Trade Name Freq PRN Reason Stop Dose Admin Docusate Sodium 100 mg 09/05/20 00:11 Docusate Sodium 100 Mg Capsule PO DAILY PRN Constipation Famotidine 20 mg 09/05/20 09:00 09/05/20 08:50 Famotidine/Pf 20 Mg/2 Ml Vial IVPUSH 20 mg DAILY ADX Administration Folic Acid 1 mg 09/05/20 09:00 09/05/20 08:50 Folic Acid 1 Mg Tablet PO 1 mg DAILY DAX Administration Sodium Chloride 1,000 mls @ 125 mls/hr 09/05/20 00:11 09/05/20 12:48 Ns IVCONT Infused .Q8H DAX Infusion Influenza Virus Vaccine Quadrival 0.5 ml 09/06/20 09:00 Flu Vacc [id number](6mos Up)/Pf 0.5 Ml Syringe IM 09/06/20 09:01 .ONCE ONE Magnesium Oxide 400 mg 09/05/20 08:30 09/05/20 08:50 Magnesium Oxide 400 Mg Tablet PO 400 mg BIDPC DAX Administration Medication 1 each 09/05/20 09:00 No Benzodiazepines MISCELLANE DAILY [facility] Morphine Sulfate 2 mg 09/05/20 00:11 09/05/20 12:50 Morphine Sulfate 2 Mg/Ml Cartridge IVPUSH 2 mg Q4H PRN Administration Pain, Severe (Pain Scale 7-10) Ondansetron HCl 4 mg 09/05/20 00:11 Ondansetron Hcl 4 Mg/2 Ml Vial IVPUSH Q8H PRN Nausea and Vomiting Pharmacy Consult 1 each 09/04/20 15:34 Consult Rx Perform Med Rec MISCELLANE ONCE PRN Consult order Phenobarbital 60 mg 09/05/20 09:00 09/05/20 08:50 Phenobarbital 30 Mg Tablet PO 09/06/20 21:01 60 mg BID DAX Administration Phenobarbital 30 mg 09/07/20 09:00 Phenobarbital 30 Mg Tablet PO 09/08/20 21:01 BID [facility] Phenobarbital 30 mg 09/09/20 09:00 Phenobarbital 30 Mg Tablet PO 09/10/20 09:01 DAILY [facility] Sodium Chloride 3 ml 09/05/20 00:11 09/05/20 07:07 0.9 % Sodium Chloride Flush 3 Ml Syringe IVFLUSH Not Given QSHIFT [facility] Thiamine HCl 100 mg 09/05/20 09:00 09/05/20 08:50 Thiamine Hcl 100 Mg Tablet PO 100 mg DAILY DAX Administration Home Medications Medication Instructions Recorded Confirmed Last Taken Type amlodipine 5 mg PO DAILY 09/04/20 09/04/20 09/04/20 History clonazepam 0.5 mg PO BID PRN 09/04/20 09/04/20 09/04/20 History escitalopram oxalate 10 mg PO DAILY 09/04/20 09/04/20 09/04/20 History gemfibrozil 600 mg PO BIDAC 09/04/20 09/04/20 09/04/20 History omeprazole 20 mg PO DAILY 09/04/20 09/04/20 09/04/20 History Physical Exam Vital Signs: Vital Signs: Last Vital Signs Temp 98.4 F 09/05/20 13:47 Pulse 91 09/05/20 13:47 Resp 18 09/05/20 13:47 BP 141/86 H 09/05/20 13:47 Pulse Ox 99 09/05/20 13:47 Body Mass Index 33.5 Const: General: no acute distress Nutritional Appearance: average body habitus and obese Orientation/consciousness: patient oriented x3 Limitations: no limitations HENMT: Head: Yes normal to inspection Ears: hearing grossly normal bilaterally Mouth: Normal oral and palatal mucosa present Eyes: Sclerae: scleral abnormal (jaundice) Pupils: Equal, round and reactive pupils present Neck: Neck: Yes normal visual inspection Chest: Chest palpation & inspection: normal inspection of the chest Resp: Effort & Inspection: normal respiratory effort Auscultation: clear to auscultation bilaterally Cardio: Palpation: normal PMI Rate: regular rate Rhythm: regular rhythm Heart sounds: S1 normal heart sound present, S2 normal heart sound present and no murmurs GI: Palpation (GI): Soft to palpation, nontender and Hepatomegaly present (Liver enlarged 5 cm below the right costal margin, tender to palpation) Auscultation: normal bowel sounds Rectal Exam - Male: Yes deferred Skin: General skin exam: no rashes or lesions noted Neuro: General: patient oriented x3, gait normal and moves all extremities Cranial nerves: Yes Equal, round and reactive pupils present and Yes Normal hearing present Speech: No Abnormal speech present Psych: Appearance: grossly normal Mental Status: mental status grossly normal Results Labs CBC & Chem 7: 09/05/20 06:16 09/05/20 06:16 Labs: Short CBC 09/05/20 Range/Units 06:16 WBC 3.3 L (4.8-10.8) X10*3/uL Hgb 12.6 L (14.0-18.0) g/dl Hct 38.1 L (42-52) % Plt Count 91 L (160-400) X10*3/uL BMP 09/05/20 06:16 Sodium 134 L Potassium 4.1 Chloride 98 Carbon Dioxide 26 BUN 2 L Creatinine 0.67 Calcium 7.5 L D Liver Function 09/05/20 Range/Units 06:16 Total Bilirubin 6.8 H (0.0-1.0) mg/dL Direct Bilirubin 5.0 H (0.0-0.5) mg/dL AST 254 H (5-37) U/L ALT 96 H (0-40) U/L Alkaline Phosphatase 198 H (39-117) U/L Albumin 3.3 L (3.5-5.0) g/dL Assessment and Plan (1) Acute alcoholic hepatitis: Status: Acute (2) Nausea & vomiting: Qualifiers: Vomiting Intractability: non-intractable Vomiting type: unspecified Qualified Code(s): R11.2 - Nausea with vomiting, unspecified Status: Acute 34 YM with hypertension, obesity, anxiety and depression admitted with abdominal pain, nausea and vomiting. Patient has a known history of alcohol abuse and relapsed since April 2020 after remaining sober for 1 year. He has been binge drinking for the past month. Labs show elevated LFT with AST greater than ALT consistent with acute alcoholic hepatitis. Liver tests have been improving (except an increase in TB). Maddrey's score is 19 and steroids are not indicated. RECOMMENDATIONS. 1. Follow LFTs - anticipate LFTs will continue to improve.. 2. Continue CIWA protocol for ETOH withdrawl 3. Await results of Hepatitis B and C serologies 4. Pt was advised to schedule a FU appointment with GI to monitor his LFTs until they become normal 5. Pt plans to quit drinking and states he has a good support system - has a roomate now who has been sober x 5 yrs.
[2020-09-05 17:06] LABS: Glucose Urine UA NEG (NEG); Leukocyte Esterase Urine NEG (NEG); Nitrite Urine POS (NEG); Specific Gravity - Urine 1.025 (1.005-1.025); UACC Culture Trigger YES; Urine Blood NEG (NEG); Urine Ketones 15 MG/DL (NEG); Urine Protein TRACE MG/DL (NEG-TRACE)
[2020-09-05 17:20] LABS: Appearance Urine CLEAR; Color Urine DARK YELLOW
[2020-09-05 17:44] LABS: RBC Urine 0-2 /HPF (0); WBC Urine 0-2 /HPF (0-4)
[2020-09-05 17:45] LABS: Mucus Urine 2+ /LPF; Squamous Epithelial Cell Urine 1+ /LPF
[2020-09-05] MEDS: hydrOXYzine HCL 25 MG TABLET PO (22:49)
[2020-09-06] VITALS: BP 132/76; PULSE 97; RESP 18; TEMP 36.4; O2SAT 96
[2020-09-06 04:00] VITALS: BP 136/77; PULSE 87; RESP 18; TEMP 36.8; O2SAT 95
[2020-09-06 06:48] LABS: MANUAL DIFF FLAG NO
[2020-09-06 06:57] LABS: Basophils Percent Auto 1.3 % (0-2); Eosinophils Absolute Auto 0.1 X10*3/uL (0.0-0.4); Hematocrit 35.6 % (42-52); Hemoglobin 11.6 g/dl (14.0-18.0); Imm Gran Abs Auto 0.02 X10*3/uL (0.00-0.03); Imm Gran Pct Auto 0.7 % (0.0-0.4); Lymphocytes Percent Auto 32.4 % (20-40); Mean Corpuscular HGB Conc 32.6 g/dl (31.0-36.0); Mean Corpuscular Hemoglobin 32.2 pg (27.0-33.0); Mean Corpuscular Volume 98.9 fL (80-98); Mean Platelet Volume 10.6 fL (9.4-12.4); Monocytes Absolute Auto 0.4 X10*3/uL (0.1-1.2); Monocytes Percent Auto 13.4 % (2-11); Neutrophils Absolute Auto 1.5 X10*3/uL (2.0-8.3); Neutrophils Percent Auto 50.2 % (45-73); White Blood Count 3.1 X10*3/uL (4.8-10.8)
[2020-09-06 07:10] LABS: Platelet Count 98 X10*3/uL (160-400)
[2020-09-06 07:19] LABS: Alanine Aminotransferase 74 U/L (0-40); Alkaline Phosphatase 178 U/L (39-117); Anion Gap 14 (12-20); Aspartate Amino Transferase 180 U/L (5-37); Blood Urea Nitrogen 2 mg/dL (9-16); Calcium 7.1 mg/dL (8.4-10.2); Carbon Dioxide 25 mmol/L (22-29); Chloride 100 mmol/L (96-108); Creatinine Clr Calc Pharmacy 229.7; Estimated Glomerular Filt Rate > 60; Glucose Random 136 mg/dL (60-115); Magnesium 1.5 mg/dL (1.6-2.6); Potassium 3.3 mmol/L (3.3-5.1); Sodium 136 mmol/L (135-145); Total Protein 5.7 g/dL (6.5-8.0)
[2020-09-06 07:29] VITALS: BP 125/78; PULSE 97; RESP 18; TEMP 36.4; O2SAT 98
[2020-09-06 08:25] LABS: HBS Num1 4.49 mIU/mL (0-7.99); HBc Num1 0.12 S/CO (0.00-0.79); HIV AB/AG Nonreactive (Nonreactive); HIV Num 1 0.07 S/CO (0.00-0.99); Hepatitis B Core Antibody Nonreactive (Nonreactive); ~Hepatitis B Surface Antibody NONREACTIVE (Nonreactive); ~Hepatitis C Antibody Nonreactive (Nonreactive)
[2020-09-06 08:32] LABS: HBsAGNum1 0.17 S/CO (0.00-0.99); Hepatitis B Surface Antigen Negative (Negative)
[2020-09-06] MEDS: 0.9 % Sodium Chloride 1,000 ML 125 ML IVCONT ×2 (08:37)
[2020-09-06] MEDS: Folic Acid 1 MG TABLET PO (08:40)
[2020-09-06] MEDS: Magnesium Oxide 400 MG TABLET 800 MG PO ×2 (08:40→16:42)
[2020-09-06] MEDS: PHENobarbitaL 30 MG TABLET 60 MG PO ×2 (08:40→21:22)
[2020-09-06] MEDS: Famotidine/PF 20 MG/2 ML VIAL IVPUSH (08:40)
[2020-09-06] MEDS: 0.9 % Sodium Chloride Flush 3 ML SYRINGE IVFLUSH ×2 (08:42→16:42)
[2020-09-06] MEDS: Thiamine HCL 100 MG TABLET PO (08:42)
[2020-09-06] MEDS: Flu Vacc QS2020-21(6mos up)/PF 0.5 ML SYRINGE IM (08:43)
[2020-09-06] MEDS: Morphine Sulfate 2 MG/ML CARTRIDGE IVPUSH (08:51)
--- NOTE | 2020-09-06 10:24 | P.PNIM_ITS ---
Subjective Subjective Date of Service: 09/06/20 Interval History: abd pain improved would like to try eating no fever no hematemesis, hematochezia, or melena Physical Exam Vital Signs: Vital Signs: Last Vital Signs Temp 97.6 F 09/06/20 07:29 Pulse 97 09/06/20 07:29 Resp 18 09/06/20 07:29 BP 125/78 09/06/20 07:29 Pulse Ox 98 09/06/20 07:29 Body Mass Index 33.5 Gen: in no acute distress HEENT: sclera anicteric, moist mucus membranes Neck: supple Lungs: clear to auscultation bilaterally Heart: regular rate and rhythm, no murmurs Abd: soft, non-tender, non-distended Ext: no edema Skin: warm/well-perfused Neuro: alert and oriented x3, no focal findings Psych: appropriate affect Objective Data Current Medications Generic Name Dose Route Start Last Admin Trade Name Freq PRN Reason Stop Dose Admin Docusate Sodium 100 mg 09/05/20 00:11 Docusate Sodium 100 Mg Capsule PO DAILY PRN Constipation Famotidine 20 mg 09/05/20 09:00 09/06/20 08:40 Famotidine/Pf 20 Mg/2 Ml Vial IVPUSH 20 mg DAILY DAX Administration Folic Acid 1 mg 09/05/20 09:00 09/06/20 08:40 Folic Acid 1 Mg Tablet PO 1 mg DAILY DAX Administration Magnesium Oxide 800 mg 09/06/20 07:41 09/06/20 08:40 Magnesium Oxide 400 Mg Tablet PO 800 mg BIDPC DAX Administration Medication 1 each 09/05/20 09:00 No Benzodiazepines MISCELLANE DAILY [facility] Morphine Sulfate 2 mg 09/05/20 00:11 09/06/20 08:51 Morphine Sulfate 2 Mg/Ml Cartridge IVPUSH 2 mg Q4H PRN Administration Pain, Severe (Pain Scale 7-10) Ondansetron HCl 4 mg 09/05/20 00:11 Ondansetron Hcl 4 Mg/2 Ml Vial IVPUSH Q8H PRN Nausea and Vomiting Pharmacy Consult 1 each 09/04/20 15:34 Consult Rx Perform Med Rec MISCELLANE ONCE PRN Consult order Phenobarbital 60 mg 09/05/20 09:00 09/06/20 08:40 Phenobarbital 30 Mg Tablet PO 09/06/20 21:01 60 mg BID DAX Administration Phenobarbital 30 mg 09/07/20 09:00 Phenobarbital 30 Mg Tablet PO 09/08/20 21:01 BID [facility] Phenobarbital 30 mg 09/09/20 09:00 Phenobarbital 30 Mg Tablet PO 09/10/20 09:01 DAILY [facility] Sodium Chloride 3 ml 09/05/20 00:11 09/06/20 08:42 0.9 % Sodium Chloride Flush 3 Ml Syringe IVFLUSH 3 ml QSHIFT [facility] Administration Thiamine HCl 100 mg 09/05/20 09:00 09/06/20 08:42 Thiamine Hcl 100 Mg Tablet PO 100 mg DAILY DAX Administration Labs CBC & Chem 7: 09/06/20 05:54 09/06/20 05:54 Labs: Laboratory Results - last 24 hr 09/05/20 09/06/20 09/06/20 16:40 05:54 05:54 WBC 3.1 L RBC 3.60 L Hgb 11.6 L Hct 35.6 L MCV 98.9 H MCH 32.2 MCHC 32.6 RDW 13.0 Plt Count 98 L MPV 10.6 Immature Gran % (Auto) 0.7 H Neut % (Auto) 50.2 Lymph % (Auto) 32.4 Evans % (Auto) 13.4 H Eos % (Auto) 2.0 Baso % (Auto) 1.3 Lymph # (Auto) 1.0 L Evans # (Auto) 0.4 Eos # (Auto) 0.1 Baso # (Auto) 0.0 Abs Immat Gran (auto) 0.02 Absolute Neuts (auto) 1.5 L Absolute Nucleated RBC 0.000 Nucleated RBC % (auto) 0.0 Sodium Potassium Chloride Carbon Dioxide Anion Gap BUN Creatinine Estim Creat Clear Calc Estimated GFR Random Glucose Calcium Magnesium Total Bilirubin AST ALT Alkaline Phosphatase Total Protein Albumin Urine Color DARK YELLOW Urine Appearance CLEAR Urine pH 6.0 Ur Specific Colon 1.025 Urine Protein TRACE Urine Glucose (UA) NEG Urine Ketones 15 Urine Blood NEG Urine Nitrite POS H Ur Leukocyte Esterase NEG Urine RBC 0-2 Urine WBC 0-2 Ur Squamous Epith Cells 1+ Urine Bacteria NONE Urine Mucus 2+ Hep Bs Antigen Negative Hep Bs Antibody NONREACTIVE Hep B Core Total Ab Nonreactive Hepatitis C Ab (EIA) Nonreactive HIV 1&2 Ab/P24 Ag 4thGn Nonreactive 09/06/20 05:54 WBC RBC Hgb Hct MCV MCH MCHC RDW Plt Count MPV Immature Gran % (Auto) Neut % (Auto) Lymph % (Auto) Evans % (Auto) Eos % (Auto) Baso % (Auto) Lymph # (Auto) Evans # (Auto) Eos # (Auto) Baso # (Auto) Abs Immat Gran (auto) Absolute Neuts (auto) Absolute Nucleated RBC Nucleated RBC % (auto) Sodium 136 Potassium 3.3 Chloride 100 Carbon Dioxide 25 Anion Gap 14 BUN 2 L Creatinine 0.58 Estim Creat Clear Calc 229.7 Estimated GFR > 60 Random Glucose 136 H Calcium 7.1 L Magnesium 1.5 L Total Bilirubin 9.0 H AST 180 H ALT 74 H Alkaline Phosphatase 178 H Total Protein 5.7 L Albumin 3.0 L Urine Color Urine Appearance Urine pH Ur Specific Colon Urine Protein Urine Glucose (UA) Urine Ketones Urine Blood Urine Nitrite Ur Leukocyte Esterase Urine RBC Urine WBC Ur Squamous Epith Cells Urine Bacteria Urine Mucus Hep Bs Antigen Hep Bs Antibody Hep B Core Total Ab Hepatitis C Ab (EIA) HIV 1&2 Ab/P24 Ag 4thGn Assessment and Plan (1) Alcohol withdrawal: Status: Acute (2) Acute alcoholic hepatitis: Status: Acute Assessment and Plan: hospital d#3 34yo M with HTN, EtOH abuse with prior withdrawal + pancreatitis admitted for EtOH hepatitis + withdrawal # EtOH hepatitis - MDF low, no steroids or pentoxyfilline indicated. GI consult appreciated. monitor LFTs. HBV/HCV screen negative. sobriety counseled # pancytopenia - suspect due to EtOH. HIV negative. monitor CBCd # EtOH gastritis - IV H2RA # EtOH withdrawal - phenobarbital taper, vitamins, counseling # hypoMg - increase Mg oxide dose, recheck level in AM # VTE ppx - SCDs
[2020-09-06 11:14] VITALS: BP 139/85; PULSE 107; RESP 18; TEMP 36.6; O2SAT 98
--- NOTE | 2020-09-06 11:25 | MHC.CM.PN ---
The goal for dc is home, no services VS Care Team interventions (ETOH). Patient required both IV Morphine and IV Pepcid and is not yet medically cleared for dc. CM will continue to follow for dc planning and possible need to adjust the dc plan.
[2020-09-06 15:24] VITALS: BP 126/76; PULSE 90; RESP 18; TEMP 36.4; O2SAT 95
[2020-09-06 19:27] VITALS: BP 145/85; PULSE 97; RESP 18; TEMP 36.2; O2SAT 98
[2020-09-07] VITALS (8 sets, daily range): BP systolic 123–142; BP diastolic 71–88; PULSE 93–108; RESP 18–20; TEMP 36.3–37.5; O2SAT 95–99
[2020-09-07] MEDS: Morphine Sulfate 2 MG/ML CARTRIDGE IVPUSH ×4 (00:27→21:37)
[2020-09-07] MEDS: 0.9 % Sodium Chloride Flush 3 ML SYRINGE IVFLUSH ×4 (00:32→20:57)
[2020-09-07 06:55] LABS: MANUAL DIFF FLAG NO
[2020-09-07 07:11] LABS: INTERNATIONAL NORM RATIO 1.2 (0.9-1.1); Prothrombin Time 14.7 SEC (10.8-13.0)
[2020-09-07 07:16] LABS: Basophils Percent Auto 0.8 % (0-2); Eosinophils Absolute Auto 0.1 X10*3/uL (0.0-0.4); Eosinophils Percent Auto 1.6 % (0-4); Hematocrit 37.6 % (42-52); Hemoglobin 12.2 g/dl (14.0-18.0); Imm Gran Abs Auto 0.02 X10*3/uL (0.00-0.03); Imm Gran Pct Auto 0.5 % (0.0-0.4); Lymphocytes Absolute Auto 1.1 X10*3/uL (1.2-4.9); Lymphocytes Percent Auto 28.4 % (20-40); Mean Corpuscular HGB Conc 32.4 g/dl (31.0-36.0); Mean Corpuscular Hemoglobin 32.4 pg (27.0-33.0); Mean Platelet Volume 10.8 fL (9.4-12.4); Monocytes Absolute Auto 0.5 X10*3/uL (0.1-1.2); Monocytes Percent Auto 12.1 % (2-11); Neutrophils Absolute Auto 2.2 X10*3/uL (2.0-8.3); Neutrophils Percent Auto 56.6 % (45-73); Platelet Count 110 X10*3/uL (160-400); Red Blood Count 3.76 X10*6/uL (4.60-5.80); Red Cell Distribution Width 13.5 % (11.0-16.0); White Blood Count 3.9 X10*3/uL (4.8-10.8)
[2020-09-07 07:41] LABS: Alanine Aminotransferase 64 U/L (0-40); Albumin Level 3.1 g/dL (3.5-5.0); Alkaline Phosphatase 182 U/L (39-117); Anion Gap 15 (12-20); Aspartate Amino Transferase 150 U/L (5-37); Bilirubin Total 10.6 mg/dL (0.0-1.0); Blood Urea Nitrogen 2 mg/dL (9-16); Calcium 7.5 mg/dL (8.4-10.2); Carbon Dioxide 26 mmol/L (22-29); Chloride 99 mmol/L (96-108); Creatinine Clr Calc Pharmacy 225.8; Estimated Glomerular Filt Rate > 60; Glucose Random 116 mg/dL (60-115); Magnesium 1.5 mg/dL (1.6-2.6); Potassium 3.3 mmol/L (3.3-5.1); Sodium 137 mmol/L (135-145); Total Protein 5.9 g/dL (6.5-8.0)
[2020-09-07] MEDS: Magnesium Sulfate/H2O 2 GM/50 ML PIGGYBACK IV (09:36)
[2020-09-07] MEDS: PHENobarbitaL 30 MG TABLET PO ×2 (09:36→20:55)
[2020-09-07] MEDS: Thiamine HCL 100 MG TABLET PO (09:36)
[2020-09-07] MEDS: Folic Acid 1 MG TABLET PO (09:37)
[2020-09-07] MEDS: Famotidine/PF 20 MG/2 ML VIAL IVPUSH (09:37)
[2020-09-07] MEDS: Magnesium Oxide 400 MG TABLET 800 MG PO ×2 (09:37→17:34)
--- NOTE | 2020-09-07 10:22 | P.PNIM_ITS ---
Subjective Subjective Date of Service: 09/07/20 Interval History: tolerating diet well abd pain improved to 5/10 no N/V anxiety improved committed to sobriety Physical Exam Vital Signs: Vital Signs: Last Vital Signs Temp 99.5 F 09/07/20 07:33 Pulse 108 H 09/07/20 07:33 Resp 18 09/07/20 07:33 BP 142/88 H 09/07/20 07:33 Pulse Ox 99 09/07/20 07:33 Body Mass Index 33.5 Gen: in no acute distress HEENT: sclera anicteric, moist mucus membranes Neck: supple Lungs: clear to auscultation bilaterally Heart: regular rate and rhythm, no murmurs Abd: soft, obese, non-tender, non-distended Ext: no edema Skin: warm/well-perfused Neuro: alert and oriented x3, no focal findings Psych: appropriate affect Objective Data Current Medications Generic Name Dose Route Start Last Admin Trade Name Freq PRN Reason Stop Dose Admin Docusate Sodium 100 mg 09/05/20 00:11 Docusate Sodium 100 Mg Capsule PO DAILY PRN Constipation Famotidine 20 mg 09/05/20 09:00 09/07/20 09:37 Famotidine/Pf 20 Mg/2 Ml Vial IVPUSH 20 mg DAILY DAX Administration Folic Acid 1 mg 09/05/20 09:00 09/07/20 09:37 Folic Acid 1 Mg Tablet PO 1 mg DAILY DAX Administration Hydroxyzine HCl 25 mg 09/07/20 04:12 Hydroxyzine Hcl 25 Mg Tablet PO Q6H PRN Anxiety Magnesium Oxide 800 mg 09/06/20 07:41 09/07/20 09:37 Magnesium Oxide 400 Mg Tablet PO 800 mg BIDPC DAX Administration Medication 1 each 09/05/20 09:00 No Benzodiazepines MISCELLANE DAILY DAX Morphine Sulfate 2 mg 09/05/20 00:11 09/07/20 05:01 Morphine Sulfate 2 Mg/Ml Cartridge IVPUSH 2 mg Q4H PRN Administration Pain, Severe (Pain Scale 7-10) Ondansetron HCl 4 mg 09/05/20 00:11 Ondansetron Hcl 4 Mg/2 Ml Vial IVPUSH Q8H PRN Nausea and Vomiting Pharmacy Consult 1 each 09/04/20 15:34 Consult Rx Perform Med Rec MISCELLANE ONCE PRN Consult order Phenobarbital 30 mg 09/07/20 09:00 09/07/20 09:36 Phenobarbital 30 Mg Tablet PO 09/08/20 21:01 30 mg BID [facility] Administration Phenobarbital 30 mg 09/09/20 09:00 Phenobarbital 30 Mg Tablet PO 09/10/20 09:01 DAILY [facility] Sodium Chloride 3 ml 09/05/20 00:11 09/07/20 09:36 0.9 % Sodium Chloride Flush 3 Ml Syringe IVFLUSH 3 ml QSHIFT [facility] Administration Thiamine HCl 100 mg 09/05/20 09:00 09/07/20 09:36 Thiamine Hcl 100 Mg Tablet PO 100 mg DAILY DAX Administration Labs CBC & Chem 7: 09/07/20 05:46 09/07/20 05:46 Labs: Laboratory Results - last 24 hr 09/07/20 09/07/20 09/07/20 05:46 05:46 05:46 WBC 3.9 L RBC 3.76 L Hgb 12.2 L Hct 37.6 L MCV 100.0 H MCH 32.4 MCHC 32.4 RDW 13.5 Plt Count 110 L MPV 10.8 Immature Gran % (Auto) 0.5 H Neut % (Auto) 56.6 Lymph % (Auto) 28.4 [place] % (Auto) 12.1 H Eos % (Auto) 1.6 Baso % (Auto) 0.8 Lymph # (Auto) 1.1 L [place] # (Auto) 0.5 Eos # (Auto) 0.1 Baso # (Auto) 0.0 Abs Immat Gran (auto) 0.02 Absolute Neuts (auto) 2.2 Absolute Nucleated RBC 0.000 Nucleated RBC % (auto) 0.0 PT 14.7 H INR 1.2 H Sodium 137 Potassium 3.3 Chloride 99 Carbon Dioxide 26 Anion Gap 15 BUN 2 L Creatinine 0.59 Estim Creat Clear Calc 225.8 Estimated GFR > 60 Random Glucose 116 H Calcium 7.5 L Magnesium 1.5 L Total Bilirubin 10.6 H AST 150 H ALT 64 H Alkaline Phosphatase 182 H Total Protein 5.9 L Albumin 3.1 L Microbiology Microbiology Results: Microbiology 09/05/20 Unknown Urine clean catch - Clean Catch Midstream Urine Culture - Preliminary No growth to date. Assessment and Plan (1) Alcohol withdrawal: Status: Acute (2) Acute alcoholic hepatitis: Status: Acute Assessment and Plan: hospital d#4 34yo M with HTN, EtOH abuse with prior withdrawal + pancreatitis admitted for EtOH hepatitis + withdrawal # EtOH hepatitis - MDF low, no steroids or pentoxyfilline indicated. GI consult appreciated. monitor LFTs: transaminases improved, Tbili rising. HBV/HCV screen negative. sobriety counseled # pancytopenia - suspect due to EtOH. HIV negative. counts improving. # EtOH gastritis - IV H2RA # EtOH withdrawal - phenobarbital taper, vitamins, counseling # hypoMg - give 2g IV Mg sulfate and continue oral repletion; recheck level in am # VTE ppx - SCDs
[2020-09-08] VITALS (7 sets, daily range): BP systolic 118–148; BP diastolic 72–86; PULSE 91–110; RESP 16–18; TEMP 36.6–37.3; O2SAT 96–99
[2020-09-08] MEDS: Morphine Sulfate 2 MG/ML CARTRIDGE IVPUSH ×2 (03:42→20:20)
[2020-09-08 06:03] LABS: MANUAL DIFF FLAG NO
[2020-09-08 06:43] LABS: Alanine Aminotransferase 51 U/L (0-40); Alkaline Phosphatase 166 U/L (39-117); Anion Gap 14 (12-20); Aspartate Amino Transferase 130 U/L (5-37); Basophils Absolute Auto 0.1 X10*3/uL (0.0-0.2); Basophils Percent Auto 1.2 % (0-2); Bilirubin Total 11.7 mg/dL (0.0-1.0); Blood Urea Nitrogen < 2 mg/dL (9-16); Calcium 7.3 mg/dL (8.4-10.2); Carbon Dioxide 24 mmol/L (22-29); Chloride 100 mmol/L (96-108); Creatinine Clr Calc Pharmacy 229.7; Eosinophils Absolute Auto 0.1 X10*3/uL (0.0-0.4); Eosinophils Percent Auto 1.7 % (0-4); Estimated Glomerular Filt Rate > 60; Glucose Random 121 mg/dL (60-115); Hematocrit 36.6 % (42-52); Imm Gran Abs Auto 0.04 X10*3/uL (0.00-0.03); Lymphocytes Absolute Auto 1.1 X10*3/uL (1.2-4.9); Lymphocytes Percent Auto 26.5 % (20-40); Magnesium 1.9 mg/dL (1.6-2.6); Mean Corpuscular HGB Conc 32.8 g/dl (31.0-36.0); Mean Corpuscular Hemoglobin 32.8 pg (27.0-33.0); Mean Platelet Volume 10.9 fL (9.4-12.4); Monocytes Absolute Auto 0.5 X10*3/uL (0.1-1.2); Neutrophils Absolute Auto 2.3 X10*3/uL (2.0-8.3); Neutrophils Percent Auto 56.6 % (45-73); Platelet Count 127 X10*3/uL (160-400); Potassium 3.1 mmol/L (3.3-5.1); Red Blood Count 3.66 X10*6/uL (4.60-5.80); Red Cell Distribution Width 13.6 % (11.0-16.0); Sodium 135 mmol/L (135-145); Total Protein 5.7 g/dL (6.5-8.0); White Blood Count 4.1 X10*3/uL (4.8-10.8)
--- NOTE | 2020-09-08 09:27 | HO.PM.IMPN ---
Subjective Subjective Date of Service: 09/08/20 Interval History: some abdominal bloating overnight tolerating diet jaundice noted Physical Exam Vital Signs: Vital Signs: Last Vital Signs Temp 99.1 F 09/08/20 07:58 Pulse 96 09/08/20 07:58 Resp 18 09/08/20 07:58 BP 118/72 09/08/20 07:58 Pulse Ox 96 09/08/20 07:58 Body Mass Index 33.5 Gen: in no acute distress HEENT: sclera icteric, moist mucus membranes Neck: supple Lungs: clear to auscultation bilaterally Heart: regular rate and rhythm, no murmurs Abd: soft, obese, non-tender, non-distended Ext: no edema Skin: warm/well-perfused, jaundiced Neuro: alert and oriented x3, no focal findings Psych: appropriate affect Objective Data Current Medications Generic Name Dose Route Start Last Admin Trade Name Freq PRN Reason Stop Dose Admin Docusate Sodium 100 mg 09/05/20 00:11 Docusate Sodium 100 Mg Capsule PO DAILY PRN Constipation Famotidine 20 mg 09/05/20 09:00 09/07/20 09:37 Famotidine/Pf 20 Mg/2 Ml Vial IVPUSH 20 mg DAILY DAX Administration Folic Acid 1 mg 09/05/20 09:00 09/07/20 09:37 Folic Acid 1 Mg Tablet PO 1 mg DAILY DAX Administration Hydroxyzine HCl 25 mg 09/07/20 04:12 Hydroxyzine Hcl 25 Mg Tablet PO Q6H PRN Anxiety Magnesium Oxide 800 mg 09/06/20 07:41 09/07/20 17:34 Magnesium Oxide 400 Mg Tablet PO 800 mg BIDPC DAX Administration Medication 1 each 09/05/20 09:00 No Benzodiazepines MISCELLANE DAILY DAX Morphine Sulfate 2 mg 09/05/20 00:11 09/08/20 03:42 Morphine Sulfate 2 Mg/Ml Cartridge IVPUSH 2 mg Q4H PRN Administration Pain, Severe (Pain Scale 7-10) Ondansetron HCl 4 mg 09/05/20 00:11 Ondansetron Hcl 4 Mg/2 Ml Vial IVPUSH Q8H PRN Nausea and Vomiting Pharmacy Consult 1 each 09/04/20 15:34 Consult Rx Perform Med Rec MISCELLANE ONCE PRN Consult order Phenobarbital 30 mg 09/07/20 09:00 09/07/20 20:55 Phenobarbital 30 Mg Tablet PO 09/08/20 21:01 30 mg BID DAX Administration Phenobarbital 30 mg 09/09/20 09:00 Phenobarbital 30 Mg Tablet PO 09/10/20 09:01 DAILY [facility] Sodium Chloride 3 ml 09/05/20 00:11 09/07/20 20:57 0.9 % Sodium Chloride Flush 3 Ml Syringe IVFLUSH 3 ml QSHIFT [facility] Administration Thiamine HCl 100 mg 09/05/20 09:00 09/07/20 09:36 Thiamine Hcl 100 Mg Tablet PO 100 mg DAILY DAX Administration Labs CBC & Chem 7: 09/08/20 05:19 09/08/20 05:19 Labs: Laboratory Results - last 24 hr 09/08/20 09/08/20 05:19 05:19 WBC 4.1 L RBC 3.66 L Hgb 12.0 L Hct 36.6 L MCV 100.0 H MCH 32.8 MCHC 32.8 RDW 13.6 Plt Count 127 L MPV 10.9 Immature Gran % (Auto) 1.0 H Neut % (Auto) 56.6 Lymph % (Auto) 26.5 [place] % (Auto) 13.0 H Eos % (Auto) 1.7 Baso % (Auto) 1.2 Lymph # (Auto) 1.1 L Keith # (Auto) 0.5 Eos # (Auto) 0.1 Baso # (Auto) 0.1 Abs Immat Gran (auto) 0.04 H Absolute Neuts (auto) 2.3 Absolute Nucleated RBC 0.000 Nucleated RBC % (auto) 0.0 Sodium 135 Potassium 3.1 L Chloride 100 Carbon Dioxide 24 Anion Gap 14 BUN < 2 L Creatinine 0.58 Estim Creat Clear Calc 229.7 Estimated GFR > 60 Random Glucose 121 H Calcium 7.3 L Magnesium 1.9 Total Bilirubin 11.7 H AST 130 H ALT 51 H Alkaline Phosphatase 166 H Total Protein 5.7 L Albumin 3.0 L Microbiology Microbiology Results: Microbiology 09/05/20 Unknown Urine clean catch - Clean Catch Midstream Urine Culture - Final No growth. Assessment and Plan (1) Alcohol withdrawal: Status: Acute (2) Acute alcoholic hepatitis: Status: Acute Assessment and Plan: hospital d#5 34yo M with HTN, EtOH abuse with prior withdrawal + pancreatitis admitted for EtOH hepatitis + withdrawal # EtOH hepatitis - MDF low, no steroids or pentoxyfilline indicated. GI consult appreciated. monitor LFTs: transaminases improved, Tbili continues to rise. HBV/HCV screen negative. sobriety counseled # pancytopenia - suspect due to EtOH. HIV negative. counts improving. # EtOH gastritis - switch IV to PO H2RA # EtOH withdrawal - phenobarbital taper, vitamins, counseling # hypoMg - repleted, continue PO maintenance # hypoK - replete PO and recheck BMP in am # VTE ppx - SCDs
[2020-09-08] MEDS: Magnesium Oxide 400 MG TABLET 800 MG PO ×2 (09:53→17:15)
[2020-09-08] MEDS: Potassium Chloride ER 20 MEQ TAB.ER.PRT 40 MEQ PO (09:53)
[2020-09-08] MEDS: PHENobarbitaL 30 MG TABLET PO ×2 (09:54→20:15)
[2020-09-08] MEDS: Folic Acid 1 MG TABLET PO (09:54)
[2020-09-08] MEDS: Thiamine HCL 100 MG TABLET PO (09:54)
[2020-09-08] MEDS: 0.9 % Sodium Chloride Flush 3 ML SYRINGE IVFLUSH ×3 (09:55→23:31)
[2020-09-09 02:39] VITALS: RESP 20
[2020-09-09] MEDS: Morphine Sulfate 2 MG/ML CARTRIDGE IVPUSH ×4 (02:39→20:53)
[2020-09-09 03:21] VITALS: BP 137/79; PULSE 104; RESP 19; TEMP 36.8; O2SAT 97
[2020-09-09 07:07] LABS: Alanine Aminotransferase 49 U/L (0-40); Albumin Level 3.3 g/dL (3.5-5.0); Alkaline Phosphatase 169 U/L (39-117); Anion Gap 15 (12-20); Aspartate Amino Transferase 131 U/L (5-37); Bilirubin Total 13.4 mg/dL (0.0-1.0); Blood Urea Nitrogen 2 mg/dL (9-16); Carbon Dioxide 21 mmol/L (22-29); Chloride 99 mmol/L (96-108); Creatinine Clr Calc Pharmacy 233.7; Estimated Glomerular Filt Rate > 60; Glucose Random 141 mg/dL (60-115); Potassium 3.4 mmol/L (3.3-5.1); Sodium 132 mmol/L (135-145); Total Protein 6.1 g/dL (6.5-8.0)
[2020-09-09 07:25] LABS: Calcium 7.7 mg/dL (8.4-10.2)
[2020-09-09 08:00] VITALS: BP 135/80; PULSE 91; RESP 20; TEMP 37; O2SAT 97
[2020-09-09] MEDS: Magnesium Oxide 400 MG TABLET 800 MG PO ×2 (08:27→17:07)
[2020-09-09] MEDS: Folic Acid 1 MG TABLET PO (08:27)
[2020-09-09] MEDS: Famotidine 20 MG TABLET PO (08:27)
[2020-09-09] MEDS: PHENobarbitaL 30 MG TABLET PO (08:27)
[2020-09-09] MEDS: 0.9 % Sodium Chloride Flush 3 ML SYRINGE IVFLUSH ×2 (08:27→14:18)
[2020-09-09] MEDS: Thiamine HCL 100 MG TABLET PO (08:27)
[2020-09-09 11:17] LABS: Bilirubin Direct 9.6 mg/dL (0.0-0.5); Lipase 17 U/L (8-78)
[2020-09-09 11:41] VITALS: BP 147/82; PULSE 100; RESP 18; TEMP 37.5; O2SAT 97
--- NOTE | 2020-09-09 12:38 | HO.PM.IMPN ---
Subjective Subjective Date of Service: 09/09/20 Interval History: overnight had severe abd pain resolved this am Physical Exam Vital Signs: Vital Signs: Last Vital Signs Temp 99.5 F 09/09/20 11:41 Pulse 100 09/09/20 11:41 Resp 18 09/09/20 11:41 BP 147/82 H 09/09/20 11:41 Pulse Ox 97 09/09/20 11:41 Body Mass Index 33.5 Gen: in no acute distress HEENT: sclera anicteric, moist mucus membranes Neck: supple Lungs: clear to auscultation bilaterally Heart: regular rate and rhythm, no murmurs Abd: soft, obese, non-tender, non-distended Ext: no edema Skin: warm/well-perfused Neuro: alert and oriented x3, no focal findings Psych: appropriate affect Objective Data Current Medications Generic Name Dose Route Start Last Admin Trade Name Freq PRN Reason Stop Dose Admin Docusate Sodium 100 mg 09/05/20 00:11 Docusate Sodium 100 Mg Capsule PO DAILY PRN Constipation Famotidine 20 mg 09/09/20 09:00 09/09/20 08:27 Famotidine 20 Mg Tablet PO 20 mg DAILY DAX Administration Folic Acid 1 mg 09/05/20 09:00 09/09/20 08:27 Folic Acid 1 Mg Tablet PO 1 mg DAILY DAX Administration Hydroxyzine HCl 25 mg 09/07/20 04:12 Hydroxyzine Hcl 25 Mg Tablet PO Q6H PRN Anxiety Magnesium Oxide 800 mg 09/06/20 07:41 09/09/20 08:27 Magnesium Oxide 400 Mg Tablet PO 800 mg BIDPC DAX Administration Medication 1 each 09/05/20 09:00 No Benzodiazepines MISCELLANE DAILY DAX Morphine Sulfate 2 mg 09/05/20 00:11 09/09/20 08:31 Morphine Sulfate 2 Mg/Ml Cartridge IVPUSH 2 mg Q4H PRN Administration Pain, Severe (Pain Scale 7-10) Ondansetron HCl 4 mg 09/05/20 00:11 Ondansetron Hcl 4 Mg/2 Ml Vial IVPUSH Q8H PRN Nausea and Vomiting Pharmacy Consult 1 each 09/04/20 15:34 Consult Rx Perform Med Rec MISCELLANE ONCE PRN Consult order Phenobarbital 30 mg 09/09/20 09:00 09/09/20 08:27 Phenobarbital 30 Mg Tablet PO 09/10/20 09:01 30 mg DAILY DAX Administration Sodium Chloride 3 ml 09/05/20 00:11 09/09/20 08:27 0.9 % Sodium Chloride Flush 3 Ml Syringe IVFLUSH 3 ml QSHIFT DAX Administration Thiamine HCl 100 mg 09/05/20 09:00 09/09/20 08:27 Thiamine Hcl 100 Mg Tablet PO 100 mg DAILY DAX Administration Labs CBC & Chem 7: 09/08/20 05:19 09/09/20 05:46 Labs: Laboratory Results - last 24 hr 09/09/20 05:46 Sodium 132 L Potassium 3.4 Chloride 99 Carbon Dioxide 21 L Anion Gap 15 BUN 2 L Creatinine 0.57 Estim Creat Clear Calc 233.7 Estimated GFR > 60 Random Glucose 141 H Calcium 7.7 L Magnesium 2.0 Total Bilirubin 13.4 H Direct Bilirubin 9.6 H AST 131 H ALT 49 H Alkaline Phosphatase 169 H Total Protein 6.1 L Albumin 3.3 L Lipase 17 Microbiology Microbiology Results: Microbiology 09/05/20 Unknown Urine clean catch - Clean Catch Midstream Urine Culture - Final No growth. Assessment and Plan (1) Alcohol withdrawal: Status: Acute (2) Acute alcoholic hepatitis: Status: Acute Assessment and Plan: hospital d#6 34yo M with HTN, EtOH abuse with prior withdrawal + pancreatitis admitted for EtOH hepatitis + withdrawal # EtOH hepatitis - MDF low, no steroids or pentoxyfilline indicated. GI consult appreciated. monitor LFTs: transaminases improved, T/Dbili continues to rise. lipase normal x2. check abd US - HBV/HCV screen negative - sobriety counseled # pancytopenia - suspect due to EtOH. HIV negative. counts improved # EtOH gastritis - H2RA # EtOH withdrawal - phenobarbital taper, vitamins, counseling # hypoMg - repleted, continue PO maintenance # hypoK - repleted # VTE ppx - SCDs
[2020-09-09 13:09] LABS: Gamma Glutamyl Transpeptidase 2486 U/L (11-51)
[2020-09-09 15:34] VITALS: BP 144/86; PULSE 97; RESP 18; TEMP 37.1; O2SAT 95
[2020-09-09 19:01] VITALS: BP 129/81; PULSE 100; RESP 18; TEMP 37.3; O2SAT 96
[2020-09-10] VITALS: BP 140/80; PULSE 88; RESP 18; TEMP 36.7; O2SAT 97
[2020-09-10] MEDS: 0.9 % Sodium Chloride Flush 3 ML SYRINGE IVFLUSH ×4 (01:32→20:12)
[2020-09-10 04:00] VITALS: BP 140/81; PULSE 90; RESP 18; TEMP 36.7; O2SAT 99
[2020-09-10 07:09] LABS: INTERNATIONAL NORM RATIO 1.2 (0.9-1.1); Prothrombin Time 14.4 SEC (10.8-13.0)
[2020-09-10 07:49] LABS: Alanine Aminotransferase 45 U/L (0-40); Albumin Level 3.2 g/dL (3.5-5.0); Alkaline Phosphatase 161 U/L (39-117); Anion Gap 15 (12-20); Aspartate Amino Transferase 134 U/L (5-37); Bilirubin Total 13.4 mg/dL (0.0-1.0); Blood Urea Nitrogen 3 mg/dL (9-16); Calcium 7.9 mg/dL (8.4-10.2); Carbon Dioxide 22 mmol/L (22-29); Chloride 101 mmol/L (96-108); Creatinine Clr Calc Pharmacy 229.7; Estimated Glomerular Filt Rate > 60; Glucose Random 125 mg/dL (60-115); Potassium 3.3 mmol/L (3.3-5.1); Sodium 135 mmol/L (135-145); Total Protein 5.9 g/dL (6.5-8.0)
[2020-09-10 08:00] VITALS: BP 129/82; PULSE 107; RESP 20; TEMP 37.1; O2SAT 99
[2020-09-10] MEDS: Thiamine HCL 100 MG TABLET PO (10:02)
[2020-09-10] MEDS: Magnesium Oxide 400 MG TABLET 800 MG PO ×2 (10:02→16:45)
[2020-09-10] MEDS: PHENobarbitaL 30 MG TABLET PO (10:02)
[2020-09-10] MEDS: Famotidine 20 MG TABLET PO (10:02)
[2020-09-10] MEDS: Folic Acid 1 MG TABLET PO (10:02)
--- NOTE | 2020-09-10 10:03 | HO.PM.IMPN ---
Subjective Subjective Date of Service: 09/10/20 Interval History: abd pain improved jaundiced no N/V firmly committed to sobriety Physical Exam Vital Signs: Vital Signs: Last Vital Signs Temp 98.7 F 09/10/20 08:00 Pulse 107 H 09/10/20 08:00 Resp 20 09/10/20 08:00 BP 129/82 09/10/20 08:00 Pulse Ox 99 09/10/20 08:00 Body Mass Index 33.5 Gen: in no acute distress HEENT: sclera anicteric, moist mucus membranes Neck: supple Lungs: clear to auscultation bilaterally Heart: regular rate and rhythm, no murmurs Abd: soft, obese, non-tender, non-distended Ext: no edema Skin: warm/well-perfused Neuro: alert and oriented x3, no focal findings Psych: appropriate affect Objective Data Current Medications Generic Name Dose Route Start Last Admin Trade Name Freq PRN Reason Stop Dose Admin Docusate Sodium 100 mg 09/05/20 00:11 Docusate Sodium 100 Mg Capsule PO DAILY PRN Constipation Famotidine 20 mg 09/09/20 09:00 09/10/20 10:02 Famotidine 20 Mg Tablet PO 20 mg DAILY DAX Administration Folic Acid 1 mg 09/05/20 09:00 09/10/20 10:02 Folic Acid 1 Mg Tablet PO 1 mg DAILY DAX Administration Hydroxyzine HCl 25 mg 09/07/20 04:12 Hydroxyzine Hcl 25 Mg Tablet PO Q6H PRN Anxiety Magnesium Oxide 800 mg 09/06/20 07:41 09/10/20 10:02 Magnesium Oxide 400 Mg Tablet PO 800 mg BIDPC DAX Administration Medication 1 each 09/05/20 09:00 No Benzodiazepines MISCELLANE DAILY DAX Morphine Sulfate 2 mg 09/05/20 00:11 09/09/20 20:53 Morphine Sulfate 2 Mg/Ml Cartridge IVPUSH 2 mg Q4H PRN Administration Pain, Severe (Pain Scale 7-10) Ondansetron HCl 4 mg 09/05/20 00:11 Ondansetron Hcl 4 Mg/2 Ml Vial IVPUSH Q8H PRN Nausea and Vomiting Pharmacy Consult 1 each 09/04/20 15:34 Consult Rx Perform Med Rec MISCELLANE ONCE PRN Consult order Sodium Chloride 3 ml 09/05/20 00:11 09/10/20 10:03 0.9 % Sodium Chloride Flush 3 Ml Syringe IVFLUSH 3 ml QSHIFT DAX Administration Thiamine HCl 100 mg 09/05/20 09:00 09/10/20 10:02 Thiamine Hcl 100 Mg Tablet PO 100 mg DAILY DAX Administration Labs CBC & Chem 7: 09/08/20 05:19 09/10/20 06:01 Labs: Laboratory Results - last 24 hr 09/09/20 09/10/20 09/10/20 05:46 06:01 06:01 PT 14.4 H INR 1.2 H Sodium 135 Potassium 3.3 Chloride 101 Carbon Dioxide 22 Anion Gap 15 BUN 3 L Creatinine 0.58 Estim Creat Clear Calc 229.7 Estimated GFR > 60 Random Glucose 125 H Calcium 7.9 L Total Bilirubin 13.4 H Direct Bilirubin 9.6 H GGT 2486 H AST 134 H ALT 45 H Alkaline Phosphatase 161 H Total Protein 5.9 L Albumin 3.2 L Lipase 17 abd US (09/10/20) * Hepatomegaly and diffuse fatty infiltration/steatohepatitis. * No intra or extra hepatic biliary dilatation. * Gallbladder wall thickening along the hepatic parenchyma likely reactive to hepatocellular disease. * No cholelithiasis. * Mild splenomegaly. Microbiology Microbiology Results: Microbiology 09/05/20 Unknown Urine clean catch - Clean Catch Midstream Urine Culture - Final No growth. Assessment and Plan (1) Alcohol withdrawal: Status: Acute (2) Acute alcoholic hepatitis: Status: Acute Assessment and Plan: hospital d#7 34yo M with HTN, EtOH abuse with prior withdrawal + pancreatitis admitted for EtOH hepatitis + withdrawal # EtOH hepatitis - MDF low, no steroids or pentoxyfilline indicated. GI consult appreciated. monitor LFTs: transaminases improved. hopefully Tbili has plateaued and will start decreasing- recheck in am.S - HBV/HCV screen negative - outpt GI f/u - sobriety counseled # pancytopenia - suspect due to EtOH. HIV negative. counts improved # EtOH gastritis - H2RA # EtOH withdrawal - phenobarbital taper, vitamins, counseling # hypoMg - repleted, continue PO maintenance # hypoK - repleted # VTE ppx - SCDs # dispo - anticipate home once Tbili starts decreasing
[2020-09-10 12:00] VITALS: BP 159/88; PULSE 109; RESP 20; TEMP 37.2; O2SAT 95
[2020-09-10 15:29] VITALS: BP 138/89; PULSE 107; RESP 18; TEMP 37.1; O2SAT 98
[2020-09-10 19:15] VITALS: BP 128/83; PULSE 100; RESP 18; TEMP 37.1; O2SAT 97
[2020-09-10] MEDS: Morphine Sulfate 2 MG/ML CARTRIDGE IVPUSH (20:12)
[2020-09-11] VITALS: BP 140/88; PULSE 101; RESP 18; TEMP 37.2; O2SAT 97
[2020-09-11 04:00] VITALS: BP 134/84; PULSE 92; RESP 20; TEMP 36.6; O2SAT 100
[2020-09-11] MEDS: Morphine Sulfate 2 MG/ML CARTRIDGE IVPUSH (04:41)
[2020-09-11 07:13] VITALS: BP 143/74; PULSE 90; RESP 18; TEMP 36.1; O2SAT 97
[2020-09-11 07:22] LABS: Alanine Aminotransferase 47 U/L (0-40); Albumin Level 3.3 g/dL (3.5-5.0); Alkaline Phosphatase 156 U/L (39-117); Anion Gap 14 (12-20); Aspartate Amino Transferase 138 U/L (5-37); Bilirubin Total 13.3 mg/dL (0.0-1.0); Blood Urea Nitrogen 3 mg/dL (9-16); Carbon Dioxide 23 mmol/L (22-29); Chloride 99 mmol/L (96-108); Creatinine Clr Calc Pharmacy 233.7; Estimated Glomerular Filt Rate > 60; Glucose Random 126 mg/dL (60-115); Potassium 3.2 mmol/L (3.3-5.1); Sodium 133 mmol/L (135-145); Total Protein 6.1 g/dL (6.5-8.0)
[2020-09-11] MEDS: Magnesium Oxide 400 MG TABLET 800 MG PO (09:37)
[2020-09-11] MEDS: Famotidine 20 MG TABLET PO (09:37)
[2020-09-11] MEDS: Folic Acid 1 MG TABLET PO (09:37)
[2020-09-11] MEDS: Thiamine HCL 100 MG TABLET PO (09:37)
[2020-09-11] MEDS: 0.9 % Sodium Chloride Flush 3 ML SYRINGE IVFLUSH (09:38)
--- NOTE | 2020-09-11 11:00 | PM.DS ---
DS: Providers Provider Date of Service: 09/11/20 Date of admission: 09/04/20 14:26 Primary care physician: John Penny MD Consults: 09/04/20 14:38 Consult to Gastroenterology Routine Consulting Provider: Mary Dillard Reason for consultation: etoh liver dz Has provider been notified: No 09/05/20 00:11 Consult to Care Team Routine Comment: Reason for consultation: etoh abuse DS: Diagnosis Discharge Diagnosis (1) Alcohol withdrawal: Status: Acute (2) Acute alcoholic hepatitis: Status: Acute DS: Medications Discharge Medications Home Medications: Home Medications Medication Instructions Recorded Confirmed amlodipine 5 mg PO DAILY 09/04/20 09/04/20 clonazepam 0.5 mg PO BID PRN 09/04/20 09/04/20 escitalopram oxalate 10 mg PO DAILY 09/04/20 09/04/20 gemfibrozil 600 mg PO BIDAC 09/04/20 09/04/20 omeprazole 20 mg PO DAILY 09/04/20 09/04/20 DS: Summary Hospital Course Hospital Course: Patient was admitted for acute alcoholic hepatitis complicated by alcohol withdrawal. He received phenobarbital taper and withdrawal resolved. His electrolytes were replaced. He did not require prednisone or pentoxifylline. His abdominal pain significantly improved. He was able to tolerate solid diet. His LFTs plateaued and are slightly improving. He will be discharged home and should have repeat labs in about 1 week, he should abstain from alcohol, and he should follow-up with Gastroenterology. Time Spent with Patient Time attestation: Total time spent providing and/or coordinating discharge services: Discharge coordination time: Greater than 30 minutes Physical Exam Vital Signs: Vital Signs: Last Vital Signs Temp 97 F 09/11/20 07:13 Pulse 90 09/11/20 07:13 Resp 18 09/11/20 07:13 BP 143/74 H 09/11/20 07:13 Pulse Ox 97 09/11/20 07:13 Body Mass Index 33.5 General: AO X 3, no acute distress, juandiced Resp: CTA bilateral CVS: S1,S2,RRR GI: soft, non tender, non distended Neuro: motor grossly intact Psych: appropriate affect DS: Data Data Completed and Pending Labs on day of discharge: Laboratory Results - last 24 hr 09/11/20 06:03 Sodium 133 L Potassium 3.2 L Chloride 99 Carbon Dioxide 23 Anion Gap 14 BUN 3 L Creatinine 0.57 Estim Creat Clear Calc 233.7 Estimated GFR > 60 Random Glucose 126 H Calcium 8.0 L Magnesium 2.0 Total Bilirubin 13.3 H AST 138 H ALT 47 H Alkaline Phosphatase 156 H Total Protein 6.1 L Albumin 3.3 L Discharge Plan Discharge Patient Disposition: Home, Self-Care Referrals: John Penny MD [Primary Care Provider] - Pieter Gibson MD [Physician] - (EtOH hepatitis, 4 wk f/u ) Discharge Medications: Continued clonazepam 0.5 mg Tablet 0.5 mg PO BID PRN (Reason: Anxiety) RF: 0 amlodipine 5 mg Tablet 5 mg PO DAILY RF: 0 gemfibrozil 600 mg Tablet 600 mg PO BIDAC RF: 0 omeprazole 20 mg Capsule,Delayed Release(Dr/Ec) 20 mg PO DAILY RF: 0 escitalopram oxalate 10 mg Tablet 10 mg PO DAILY RF: 0 Discharge Orders: Discharge Order (Routine); Ordered 09/11/20 Ordered By: Kwesi Iverson Diet: advance to usual diet Activity on Discharge: As tolerated Stand Alone Forms: Patient Portal Discharge page, Work/School Release Other Ambulatory Orders: Complete Blood Count Auto Diff (Routine) Timeframe: 1 Week Facility: [facility] - Location: Laboratory Ordered By: Romy Dave Comprehensive Met. Panel (Routine) Timeframe: 1 Week Facility: [facility] - Location: Laboratory Ordered By: Romy Dave Magnesium (Routine) Timeframe: 1 Week Facility: [facility] - Location: Laboratory Ordered By: Romy Dave Visit Report Forms: Patient Portal Discharge page Care Plan Goals: recovery Health Concerns: alcholic hepatitis, etoh dependence Plan of Treatment: alcohol cessation, monitor labs, gi follow up
[2020-09-11 11:07] VITALS: BP 137/89; PULSE 98; RESP 18; TEMP 36.2; O2SAT 99
--- NOTE | 2020-09-11 11:45 | MHC.CM.PN ---
pt dcd today self arranging traNSPORTAION
[2020-09-11 11:59] LABS: COVID-19 Test Negative (Negative); IDNOW Serial# 9DD0AD1C
== END 2020-09-11 14:00 | disposition home or self-care (01) | DRG 280 ==
LOC: HO.ED 12:20 → HO.EDOVER 14:30 → HO.ISO 09-05 07:10 → HO.IMC 09-05 12:36
PROVIDERS: Physician Assistant Medical; Admitting Provider Family Medicine; Emergency Provider Emergency Medicine; PCP Internal Medicine; Visit Provider Internal Medicine
DX: K70.10 Alcoholic hepatitis without ascites (principal); D61.818 Other pancytopenia; E87.2 Acidosis; K29.20 Alcoholic gastritis without bleeding; I10 Essential (primary) hypertension; E83.42 Hypomagnesemia; F10.230 Alcohol dependence with withdrawal, uncomplicated; F17.210 Nicotine dependence, cigarettes, uncomplicated; E87.6 Hypokalemia; F32.9 Major depressive disorder, single episode, unspecified; F41.9 Anxiety disorder, unspecified; Z71.6 Tobacco abuse counseling; Z23 Encounter for immunization; Z20.822 Contact with and (suspected) exposure to COVID-19; Z79.899 Other long term (current) drug therapy
CPT/HCPCS: 36415; 74176; 76700; 80048; 80053; 80076; 80307; 80320; 81001; 81003; 82248; 82977; 83605; 83615; 83690; 83735; 85025; 85027; 85610; 85730; 86704; 86706; 86803; 87086; 87340; 87389; 87635; 90686; 96361; 96365; 96372; 96375; 99284; 99291; J2060; J2270; J2405; J2560; J3411; J3475

== ENCOUNTER 2020-12-29 15:19 | Inpatient (IN) | payer OTHER, SELFPAY ==
--- NOTE | ~2020-12-29 | CT_ITS ---
EXAMINATION: CT ABDOMEN AND PELVIS WITH CONTRAST CLINICAL INFORMATION: Upper abdominal pain with history of pancreatitis COMPARISON: 09/04/2020 TECHNIQUE: Multidetector volumetric images were obtained from the superior aspect of the liver through the pubic symphysis following administration 85 mL of Omnipaque 350 intravenous contrast. Sagittal and coronal reformatted images were obtained on the technologist's workstation. Oral contrast: No This CT examination was performed using dose optimization techniques as appropriate, variously including the following: *Automated exposure control *Adjustment of mA and/or kV according to patient size (this includes techniques or standardized protocols for targeted exams where dose is matched to indication/reason for exam; i.e. extremities or head) *Use of iterative reconstruction technique DLP: 936 mGy-cm FINDINGS: LUNG BASES: The visualized lung bases are unremarkable. LIVER, GALLBLADDER, AND BILIARY TREE: Again seen is an enlarged fatty liver. No focal hepatic lesion or biliary ductal dilatation is present. The gallbladder is unremarkable with no evidence of radiopaque gallstones, gallbladder wall thickening, or obvious pericholecystic inflammatory changes. PANCREAS: Unremarkable. No evidence of pancreatitis as a cause for the patient's upper abdominal pain. SPLEEN: Unremarkable. ADRENAL GLANDS: Unremarkable. KIDNEYS AND URETERS: The kidneys are normal in size, shape, and attenuation. No hydronephrosis, hydroureter, or calculi seen. No perinephric stranding. BLADDER: Unremarkable. GASTROINTESTINAL TRACT: There is an area of narrowing present in the sigmoid colon without any obstruction (3:77). This is probably due to underdistention rather than a neoplasm. Please correlate with heme positive stools. There is fatty infiltration of the ileocecal valve. The small and large bowel are otherwise unremarkable. The appendix is unremarkable. ABDOMINAL WALL: No significant hernia is appreciated. LYMPH NODES: No retroperitoneal lymphadenopathy is seen. VASCULAR: Unremarkable. PELVIC VISCERA: A statement seminal vesicles appear normal OSSEOUS STRUCTURES: Unremarkable. CT/CT abdomen pelvis w con IMPRESSION: 1. No evidence of recurrent pancreatitis as a cause for the patient's upper abdominal pain. 2. Redemonstrated enlarged fatty liver 3. Area of narrowing in sigmoid colon most likely secondary to underdistention. Correlate with heme positive stools, BE or sigmoidoscopy.
--- NOTE | ~2020-12-29 | US_ITS ---
EXAMINATION: US ABDOMEN COMPLETE CLINICAL INFORMATION: Right upper quadrant pain. COMPARISON: CT abdomen pelvis December 29, 2020 and abdominal ultrasound September 10, 2020 TECHNIQUE: Real-time imaging of the abdominal viscera. FINDINGS: PANCREAS: Visualized portions of pancreas are normal in appearance. ABDOMINAL AORTA: The proximal, mid, and distal segments are normal in caliber. INFERIOR VENA CAVA: Visualized portions are normal. LIVER: The liver is enlarged. The liver contour is normal. Diffusely increased liver echogenicity. No focal hepatic lesion. There is no intrahepatic biliary duct dilatation seen. GALLBLADDER: Normal. The gallbladder is physiologically distended without evidence of stones, sludge, polyps, wall thickening or pericholecystic fluid. COMMON BILE DUCT: Normal in caliber measuring 0.3 cm in diameter. RIGHT KIDNEY: Normal. No hydronephrosis. No renal calculi or focal parenchymal lesions. The kidney measures 11.8 cm in maximum dimension. LEFT KIDNEY: Normal. No hydronephrosis. No renal calculi or focal parenchymal lesions. The kidney measures 12.2 cm in maximum dimension. SPLEEN: The spleen measures 13.3 cm in maximum dimension. FREE FLUID: None. US/US abdomen complete IMPRESSION: 1. Hepatomegaly with diffusely increased liver echogenicity suggesting hepatic steatosis. Correlation with liver enzymes recommended. 2. Mild splenomegaly.
[2020-12-29 17:18] VITALS: BP 166/102; PULSE 92; RESP 16; TEMP 36.8; O2SAT 96; BMI 33.2
[2020-12-29] MEDS: 0.9 % Sodium Chloride 1,000 ML 999 ML IVCONT (17:46)
[2020-12-29 17:52] LABS: MANUAL DIFF FLAG NO
[2020-12-29 17:53] LABS: Basophils Percent Auto 0.8 % (0-2); Eosinophils Absolute Auto 0.1 X10*3/uL (0.0-0.4); Eosinophils Percent Auto 1.4 % (0-4); Hemoglobin 14.3 g/dl (14.0-18.0); Imm Gran Abs Auto 0.01 X10*3/uL (0.00-0.03); Imm Gran Pct Auto 0.3 % (0.0-0.4); Lymphocytes Absolute Auto 1.1 X10*3/uL (1.2-4.9); Lymphocytes Percent Auto 30.9 % (20-40); Mean Corpuscular HGB Conc 34.9 g/dl (31.0-36.0); Mean Corpuscular Hemoglobin 29.7 pg (27.0-33.0); Mean Corpuscular Volume 85.1 fL (80-98); Mean Platelet Volume 9.4 fL (9.4-12.4); Monocytes Absolute Auto 0.4 X10*3/uL (0.1-1.2); Monocytes Percent Auto 9.7 % (2-11); Neutrophils Percent Auto 56.9 % (45-73); Red Blood Count 4.82 X10*6/uL (4.60-5.80); Red Cell Distribution Width 13.9 % (11.0-16.0); White Blood Count 3.6 X10*3/uL (4.8-10.8)
[2020-12-29 17:56] LABS: Platelet Count 92 X10*3/uL (160-400)
[2020-12-29 17:57] VITALS: RESP 18
[2020-12-29] MEDS: Morphine Sulfate 4 MG/ML CARTRIDGE IVPUSH (17:57)
[2020-12-29] MEDS: LORazepam 2 MG/ML VIAL 1 MG IVPUSH (17:57)
[2020-12-29] MEDS: ondansetron HCL 4 MG/2 ML VIAL IVPUSH (17:57)
[2020-12-29 17:58] LABS: INTERNATIONAL NORM RATIO 1.1 (0.9-1.1); Prothrombin Time 13.2 SEC (10.8-13.0)
[2020-12-29 18:21] LABS: Ethanol < 10 mg/dL
[2020-12-29 18:29] LABS: Alanine Aminotransferase 128 U/L (0-40); Albumin Level 4.4 g/dL (3.5-5.0); Alkaline Phosphatase 203 U/L (39-117); Anion Gap 19 (12-20); Aspartate Amino Transferase 135 U/L (5-37); Bilirubin Total 0.8 mg/dL (0.0-1.0); Blood Urea Nitrogen 8 mg/dL (9-16); Calcium 9.4 mg/dL (8.4-10.2); Carbon Dioxide 25 mmol/L (22-29); Chloride 100 mmol/L (96-108); Creatinine Clr Calc Pharmacy 175.2; Estimated Glomerular Filt Rate > 60; Glucose Random 180 mg/dL (60-115); Lactate Dehydrogenase 257 U/L (118-273); Lipase 26 U/L (8-78); Magnesium 1.4 mg/dL (1.6-2.6); Potassium 4.1 mmol/L (3.3-5.1); Sodium 140 mmol/L (135-145); Total Protein 7.7 g/dL (6.5-8.0)
--- NOTE | 2020-12-29 18:47 | MHC.RECOVSUP ---
? Reason for consult Recovery support o Current location: ED16 o Identified substance use concern: Alcohol - Withdrawal - Support ? Intervention: o Community resources provided o Harm reduction discussion ? Plan: o Referral to [facility] o Patient to follow up with [facility] after discharge ? Additional information: Patient did not want to go to detox But was very open to recovery resources.. Patient stated that he is interested in MAT and [facility]. I supplied patient information for both [facility] and [facility].. and [facility].. [facility] would like a Follow up call.. [phone]
--- NOTE | 2020-12-29 19:08 | ED_ITS ---
HPI - Abdominal Pain General Chief Complaint: Abdominal Pain Stated Complaint: Abd Pain Time Seen by Provider: 12/29/20 17:22 Source: patient Mode of arrival: ambulatory Limitations: no limitations History of Present Illness HPI narrative: 35-year-old male with a past medical history of alcoholism with pancreatitis and alcohol hepatitis and withdrawals never had a seizure, hypertension with normal renal function, anxiety and depression presenting to the ED with complaints of upper abdominal pain that started last night worse this morning although reports he has had nausea vomiting for the past 1-2 weeks. He reports that he was sober for approximately 6 months then he had an event at his house occur that he does not really want to speak about at this time and since then he relapsed on alcohol and is drinking at least 1 handle of vodka daily. He reports increased anxiety and depression along with auditory and visual hallucination although denies any SI/HI or thoughts of self injury. Reports he also smokes cannabis otherwise denies any other drug usage. Reports he is not homeless. Reports he has good support at home. Patient was admitted for acute alcoholic hepatitis on 09/04/2020 and discharged on 09/11/2020. MD elicited complaint: abdominal pain Pertinent past history: other (Alcoholism/pancreatitis) Onset (ago): week(s) (The nausea and vomiting have been for the past 1-2 weeks the abdominal pain started since last night worse today) Pain Consistency: constant Location: epigastric, LUQ and RUQ Severity: similar to previous episodes Pain scale (0-10): 10 Quality: aching, sharp and dull Radiation: none Migration to: no migration Exacerbating factors: nothing Relieving factors: nothing Associated symptoms: nausea and vomiting Related Data Home Medications Medication Instructions Recorded Confirmed amlodipine 5 mg PO DAILY 09/04/20 09/04/20 clonazepam 0.5 mg PO BID PRN 09/04/20 09/04/20 escitalopram oxalate 10 mg PO DAILY 09/04/20 09/04/20 gemfibrozil 600 mg PO BIDAC 09/04/20 09/04/20 omeprazole 20 mg PO DAILY 09/04/20 09/04/20 Allergies Allergy/AdvReac Type Severity Reaction Status Date / Time No Known Allergies Allergy Verified 09/05/20 09:09 [No Known Allergies*] Review of Systems Review of Systems Constitutional : No Weight loss, No Fever, No Chills, No Night Sweats, No Fati ray, NoMalaise ENT/Mouth: No ear pain, No sore throat, No Difficulty swallowing Cardiovascular : No Chest Pain, No SOB, No Dyspnea on Exertion, No Orthopnea, NoEdema, No Palpitations Respiratory : No Cough, No Sputum, No Wheezing, No Dyspnea Gastrointestinal : Positive nausea/vomiting/abdominal pain, No Diarrhea, No blood streaked emesis, No coffee-ground emesis, No gross hematemesis, No blood streak stool, No gross hematochezia, No Melena Genitourinary : No irregular bleeding, No Dysuria, No Urinary Frequency, No Hematuria,No Urinary Incontinence, No Urgency, No Flank Pain Musculoskeletal : No joint pain, No Myalgias, No Joint Swelling Skin : No Skin Lesions, No rash Neuro : No Weakness, No Numbness, No Paresthesias, No Loss of Consciousness, NoDizziness, No Headache Psych : Positive increased anxiety/depression/auditory visual hallucination, no SI/HI or thoughts of self injury Heme/Lymph: No Bruising, No Bleeding,No Lymphadenopathy Endocrine : No Polyuria, No Polydipsia, No Temperature Intolerance Yes all other systems are reviewed and are negative Physical Exam Vital Signs: Vital Signs: Last Vital Signs Temp 98.6 F 12/29/20 19:15 Pulse 103 H 12/29/20 20:00 Resp 20 12/29/20 20:00 BP 152/96 H 12/29/20 20:00 Pulse Ox 95 12/29/20 20:00 Body Mass Index 33.2 vital signs have been reviewed as normal and appeared to be correct. Blood pressure hypertensive at 166/102. Heart rate normal. Respiration rate normal. Temperature normal. Oxygen saturation normal. Appearance: Alert. Oriented X3. No acute distress. Head: Normal external exam. Normocephalic. Atraumatic. No Roland signs noted. No raccoon eyes noted Eyes: PERRLA. EOMI. Conjunctiva and sclera normal. Eyelids normal. ENT: EAC normal. TM's Normal. Pharynx normal. Uvula midline. Moist mucous membranes. No trismus noted. No drooling noted. No muffled voice noted. Neck: Normal inspection. Neck supple. FROM. No adenopathy. Thyroid Normal. No meningeal signs. No neck mass noted. CVS: Normal heart rate and rhythm. Heart sound normal. No murmurs noted. Pulses normal throughout. Respiratory: No respiratory distress. Painless inspiration. Breath sounds normal. No wheezes/rales/rhonchi noted. Chest nontender. No accessory muscle usage noted or decreased air movement noted. Abdomen: Soft and moderate tenderness to palpation to epigastric/left upper quadrant/right upper quadrant of the abdomen with guarding. Bowel sounds normal in all 4 quadrants. No distention noted. No organomegaly noted. No visible injury noted. Negative Rovsing sign. Negative obturator's sign. Negative psoas sign. Negative Elizabeth sign. Back: No CVA tenderness. Full range of motion noted. Skin: Skin warm and dry. Normal skin color. Normal skin turgor. No rashes/lesions/lacerations noted. Extremities: No lower extremity edema. No calf tenderness noted. Extremities exhibit normal range of motion. Extremities nontender. Neuro: Oriented X 3. No motor deficit. No sensory deficit. Reflexes normal. Psych: Appearance grossly normal, well-kept, mental status normal, speech and movement normal, speech clear, patient appears very sad and anxious along with depressed. Is cooperative. Normal thought process. Normal thought content. Normal good insight. Judgment good. Course Course Course Narrative: 20:40pm - labs return and patient with an low white blood cell count at 3000. Random glucose 180. Magnesium 1.4. AST/ALT/alkaline phosphate 135/125/203. ETOH level negative. Otherwise all other labs are within normal limits. - CT scan of abdomen and pelvis negative for acute pancreatitis - although patient has a CIWA score of 15-17 and Ativan is not providing any symptomatic relief - therefore I spoke to the hospitalist Dr. Garcia and she will be admitting for acute alcoholic hepatitis and alcohol withdrawal patient will be started on phenobarb at this time. Patient understands agrees with this plan MDM - Abdominal Pain MDM Narrative Medical decision making narrative: 17:25pm -35-year-old male with a past medical history of alcoholism with pancreatitis and alcohol hepatitis and withdrawals never had a seizure, hypertension with normal renal function, anxiety and depression presenting to the ED with complaints of upper abdominal pain that started last night worse this morning although reports he has had nausea vomiting for the past 1-2 weeks. Recent relapse on ETOH drinking approximately 1 handle of vodka daily. Admits to cannabis usage. Denies any other drug usage. Not currently homeless. Admits to increased anxiety/depression/auditory visual hallucination although denies any SI/HI or thoughts of self injury. Reports he feels safe at home. Recent admission for acute alcoholic hepatitis on 09/04/2020 discharge on 09/11/2020. Plan: Labs, CT scan of abdomen and pelvis with IV contrast, blood cultures, lactic acid. Provide a L of IV fluids, 1 mg of Ativan, 4 mg of Zofran 4 mg of morphine then re-evaluate. Patient reports with the CT scan with IV contrast last time he had hives therefore will premedicate with 125 mg of Solu-Medrol and 50 mg of Benadryl. Medical Records Attestation: I reviewed the patient's medical records. Lab Data Attestation: I reviewed the patient's lab results. Result diagrams: 12/29/20 17:45 12/29/20 17:45 Labs: Lab Results 12/29/20 12/29/20 12/29/20 Range/Units 17:45 17:45 17:45 WBC 3.6 L (4.8-10.8) X10*3/uL RBC 4.82 D (4.60-5.80) X10*6/uL Hgb 14.3 (14.0-18.0) g/dl Hct 41.0 L (42-52) % MCV 85.1 (80-98) fL MCH 29.7 (27.0-33.0) pg MCHC 34.9 (31.0-36.0) g/dl RDW 13.9 (11.0-16.0) % Plt Count 92 L D (160-400) X10*3/uL MPV 9.4 (9.4-12.4) fL Immature Gran % (Auto) 0.3 (0.0-0.4) % Neut % (Auto) 56.9 (45-73) % Lymph % (Auto) 30.9 (20-40) % Rapides % (Auto) 9.7 (2-11) % Eos % (Auto) 1.4 (0-4) % Baso % (Auto) 0.8 (0-2) % Lymph # (Auto) 1.1 L (1.2-4.9) X10*3/uL Rapides # (Auto) 0.4 (0.1-1.2) X10*3/uL Eos # (Auto) 0.1 (0.0-0.4) X10*3/uL Baso # (Auto) 0.0 (0.0-0.2) X10*3/uL Abs Immat Gran (auto) 0.01 (0.00-0.03) X10*3/uL Absolute Neuts (auto) 2.0 (2.0-8.3) X10*3/uL Absolute Nucleated RBC 0.000 (0.0-0.012) X10*3/uL Nucleated RBC % (auto) 0.0 (0.0-0.2) /100WBC PT (10.8-13.0) SEC INR (0.9-1.1) Sodium 140 (135-145) mmol/L Potassium 4.1 D (3.3-5.1) mmol/L Chloride 100 (96-108) mmol/L Carbon Dioxide 25 (22-29) mmol/L Anion Gap 19 (12-20) BUN 8 L D (9-16) mg/dL Creatinine 0.75 (0.5-1.4) mg/dL Estim Creat Clear Calc 175.2 Estimated GFR > 60 Random Glucose 180 H D (60-115) mg/dL Lactic Acid (0.5-2.0) mmol/L Calcium 9.4 D (8.4-10.2) mg/dL Magnesium 1.4 L* (1.6-2.6) mg/dL Total Bilirubin 0.8 (0.0-1.0) mg/dL AST 135 H (5-37) U/L ALT 128 H (0-40) U/L Alkaline Phosphatase 203 H D (39-117) U/L Lactate Dehydrogenase 257 (118-273) U/L Total Protein 7.7 D (6.5-8.0) g/dL Albumin 4.4 D (3.5-5.0) g/dL Lipase 26 (8-78) U/L Ethyl Alcohol < 10 mg/dL 12/29/20 12/29/20 Range/Units 17:45 19:23 WBC (4.8-10.8) X10*3/uL RBC (4.60-5.80) X10*6/uL Hgb (14.0-18.0) g/dl Hct (42-52) % MCV (80-98) fL MCH (27.0-33.0) pg MCHC (31.0-36.0) g/dl RDW (11.0-16.0) % Plt Count (160-400) X10*3/uL MPV (9.4-12.4) fL Immature Gran % (Auto) (0.0-0.4) % Neut % (Auto) (45-73) % Lymph % (Auto) (20-40) % Rapides % (Auto) (2-11) % Eos % (Auto) (0-4) % Baso % (Auto) (0-2) % Lymph # (Auto) (1.2-4.9) X10*3/uL Rapides # (Auto) (0.1-1.2) X10*3/uL Eos # (Auto) (0.0-0.4) X10*3/uL Baso # (Auto) (0.0-0.2) X10*3/uL Abs Immat Gran (auto) (0.00-0.03) X10*3/uL Absolute Neuts (auto) (2.0-8.3) X10*3/uL Absolute Nucleated RBC (0.0-0.012) X10*3/uL Nucleated RBC % (auto) (0.0-0.2) /100WBC PT 13.2 H (10.8-13.0) SEC INR 1.1 (0.9-1.1) Sodium (135-145) mmol/L Potassium (3.3-5.1) mmol/L Chloride (96-108) mmol/L Carbon Dioxide (22-29) mmol/L Anion Gap (12-20) BUN (9-16) mg/dL Creatinine (0.5-1.4) mg/dL Estim Creat Clear Calc Estimated GFR Random Glucose (60-115) mg/dL Lactic Acid 1.3 (0.5-2.0) mmol/L Calcium (8.4-10.2) mg/dL Magnesium (1.6-2.6) mg/dL Total Bilirubin (0.0-1.0) mg/dL AST (5-37) U/L ALT (0-40) U/L Alkaline Phosphatase (39-117) U/L Lactate Dehydrogenase (118-273) U/L Total Protein (6.5-8.0) g/dL Albumin (3.5-5.0) g/dL Lipase (8-78) U/L Ethyl Alcohol mg/dL Imaging Data CT scan abdomen and pelvis with IV contrast: Attestation: I personally reviewed and interpreted this imaging study as follows: Radiologist's impression: FINDINGS: LUNG BASES: The visualized lung bases are unremarkable. LIVER, GALLBLADDER, AND BILIARY TREE: Again seen is an enlarged fatty liver. No focal hepatic lesion or biliary ductal dilatation is present. The gallbladder is unremarkable with no evidence of radiopaque gallstones, gallbladder wall thickening, or obvious pericholecystic inflammatory changes. PANCREAS: Unremarkable. No evidence of pancreatitis as a cause for the patient's upper abdominal pain. SPLEEN: Unremarkable. ADRENAL GLANDS: Unremarkable. KIDNEYS AND URETERS: The kidneys are normal in size, shape, and attenuation. No hydronephrosis, hydroureter, or calculi seen. No perinephric stranding. BLADDER: Unremarkable. GASTROINTESTINAL TRACT: There is an area of narrowing present in the sigmoid colon without any obstruction (3:77). This is probably due to underdistention rather than a neoplasm. Please correlate with heme positive stools. There is fatty infiltration of the ileocecal valve. The small and large bowel are otherwise unremarkable. The appendix is unremarkable. ABDOMINAL WALL: No significant hernia is appreciated. LYMPH NODES: No retroperitoneal lymphadenopathy is seen. VASCULAR: Unremarkable. PELVIC VISCERA: A statement seminal vesicles appear normal OSSEOUS STRUCTURES: Unremarkable. CT/CT abdomen pelvis w con IMPRESSION: 1. No evidence of recurrent pancreatitis as a cause for the patient's upper abdominal pain. 2. Redemonstrated enlarged fatty liver 3. Area of narrowing in sigmoid colon most likely secondary to underdistention. Correlate with heme positive stools, BE or sigmoidoscopy. Critical Care Time Critical Care Time Critical Care Time: Yes Total Critical Care Time: 60 Attestation: I personally attest to this time spent taking care of the patient Discharge Plan Discharge Clinical Impression: Low blood magnesium level, Anxiety, Depression, Auditory hallucination, Hallucination, visual, Alcohol withdrawal, Acute alcoholic hepatitis, Nausea & vomiting Patient Disposition: Admitted As Inpatient Prescriptions: No Action clonazepam 0.5 mg Tablet 0.5 mg PO BID PRN (Reason: Anxiety) RF: 0 amlodipine 5 mg Tablet 5 mg PO DAILY RF: 0 gemfibrozil 600 mg Tablet 600 mg PO BIDAC RF: 0 omeprazole 20 mg Capsule,Delayed Release(Dr/Ec) 20 mg PO DAILY RF: 0 escitalopram oxalate 10 mg Tablet 10 mg PO DAILY RF: 0 PMFSH Past Medical History Attestation statement: The following information was validated with the patient. Medical History Alcoholism Anxiety Depression Hypertension with normal renal function Pancreatitis Family History Family History Other HTN (hypertension) Social History Social History Household Members: Other Household Members Other:: roomate Housing: Apartment Do you presently have visiting nurse or other home services: No Alcohol intake: current Alcohol intake frequency: 3 or more drinks per day Cigarettes Per Day: 3 Substance Use Type: Marijuana Advance Directives: No Advance Directives Information Provided: No service: No Current occupational status: employed
[2020-12-29 19:15] VITALS: BP 165/96; PULSE 103; RESP 20; TEMP 37; O2SAT 96
[2020-12-29] MEDS: methylPREDNISolone Sod Succ 125 MG/2 ML VIAL IVPUSH (19:25)
[2020-12-29] MEDS: diphenhydrAMINE HCL 50 MG/ML VIAL IVPUSH (19:25)
[2020-12-29] MEDS: Magnesium Sulfate/H2O 2 GM/50 ML PIGGYBACK IV (19:25)
[2020-12-29] MEDS: LORazepam 2 MG/ML VIAL IVPUSH (19:38)
[2020-12-29] MEDS: iohexoL 350 MG/ML 100 ML INFUS..BTL IV (19:54)
[2020-12-29 20:00] VITALS: BP 152/96; PULSE 103; RESP 20; O2SAT 95
[2020-12-29 20:17] LABS: Lactic Acid 1.3 mmol/L (0.5-2.0)
[2020-12-29 20:47] VITALS: BP 157/100; PULSE 99; RESP 21; O2SAT 96
[2020-12-29] MEDS: PHENobarbitaL sodium 130 MG/ML VIAL 310 MG IM (21:01)
[2020-12-29 21:09] LABS: COVID-19 Test Negative (Negative)
--- NOTE | 2020-12-29 22:04 | PM.IMHP ---
History of Present Illness Date of Service: 12/29/20 Chief Complaint: alcohol withdrawal This is a 35-year-old male abuse, anxiety depression, hypertension, who presents to the hospital with complaints of abdominal pain that started 2 days ago, the abdominal pain is localized to the epigastric region radiating to the right, associated with nausea and vomiting, 8/10, no alleviating or relieving factors. Patient reports that he is also in alcohol withdrawal, he is having visual hallucinations. Last drink was this a.m.. He usually drinks about over a pt of vodka daily. Denies having any chest pain, no shortness of breath, he is also having diarrhea that started today. He is not having any urinary symptoms, no lower extremity edema, numbness tingling or weakness. No fever or chills On arrival to the ED patient found to have a temp of 98.2?, heart rate of 92, respiratory rate of 16, blood pressure 166/102, satting 96% on room air Labs are significant for WBC count of 3.6 which is chronically low, PT of 13.2, INR of 1.1, sodium of 140, magnesium of 1.4, AST of 135, ALT of 128, alk-phos of 203, which is chronically high, COVID-19 negative, alcohol level negative. COVID-19 negative, Abdominal pelvic CT shows no evidence of recurrent pancreatitis, redemonstrated enlarged fatty liver, areas of narrowing in sigmoid colon most likely secondary to under distension. Patient's past medical history as below on confirmed with him Review of Systems Review of Systems: Yes all other systems are reviewed and are negative [facility] Medical History Alcoholism Anxiety Depression Hypertension with normal renal function Pancreatitis Family History Other HTN (hypertension) Social History Household Members: None Household Members Other:: roomate Housing: Apartment Do you presently have visiting nurse or other home services: No Alcohol intake: current Alcohol intake frequency: 3 or more drinks per day Patient Tobacco Use Status: Current everyday Tobacco user Cigarettes Per Day: 1 Patient Interested in Nicotine Replacement: No Patient Given Instructions on How to Stop Smoking: Yes Date Education Initiated: 12/29/20 Second Hand Smoke Exposure: No Use of substances other than those prescribed or required for medical reasons: Yes Substance Use Type: Marijuana Substance Use Frequency: Occasionally Last Used Substance: Unknown Currently Displaying Signs/Symptoms of Drug Intoxication Withdrawal: No Any prior treatment program specific to substance use: No Have you been hit, kicked, punched, or otherwise hurt by someone within the past year? If so, by whom?: No Do you feel safe in your current relationship?: No Is there a partner from a previous relationship who is making you feel unsafe now?: No Are you made to feel afraid or neglected: No Advance Directives: No Advance Directives Information Provided: No Do you have thoughts of harming others: None Do you have a plan to hurt others: No Plan Recently lost weight without trying: Unsure Eating poorly because of decreased appetite: Yes Nutrition Risks: Acute nausea or vomiting x1 week Poor oral hygiene: No service: No Current occupational status: employed Meds Allergies Allergy/AdvReac Type Severity Reaction Status Date / Time Iodinated Contrast Media Allergy Hives Verified 12/29/20 21:49 [Contrast Dye] Active Medications: Current Medications Generic Name Dose Route Start Last Admin Trade Name Freq PRN Reason Stop Dose Admin Medication 1 each 12/30/20 09:00 No Benzodiazepines MISCELLANE DAILY [facility] Ondansetron HCl 4 mg 12/29/20 21:56 Ondansetron Hcl 4 Mg/2 Ml Vial IVPUSH Q8H PRN Nausea and Vomiting Pharmacy Consult 1 each 12/29/20 20:23 Consult Rx Perform Med Rec MISCELLANE ONCE PRN Consult order Phenobarbital 60 mg 12/30/20 09:00 Phenobarbital 30 Mg Tablet PO 12/31/20 21:01 BID DAX Phenobarbital 30 mg 01/01/21 09:00 Phenobarbital 30 Mg Tablet PO 01/02/21 21:01 BID [facility] Phenobarbital 15 mg 01/03/21 09:00 Phenobarbital 15 Mg Tablet PO 01/04/21 09:01 DAILY [facility] Phenobarbital Sodium 280 mg 12/30/20 00:00 Phenobarbital Sodium 130 Mg/Ml Vial IM 12/30/20 03:01 [id number] [facility] Home Medications Medication Instructions Recorded Confirmed Last Taken Type amlodipine 5 mg PO DAILY 09/04/20 12/29/20 09/04/20 History clonazepam 0.5 mg PO BID PRN 09/04/20 12/29/20 09/04/20 History escitalopram oxalate 10 mg PO DAILY 09/04/20 12/29/20 09/04/20 History gemfibrozil 600 mg PO BIDAC 09/04/20 12/29/20 09/04/20 History omeprazole 20 mg PO DAILY 09/04/20 12/29/20 09/04/20 History Physical Exam Vital Signs and Narrative: Vital Signs: Last Vital Signs Temp 98.6 F 12/29/20 19:15 Pulse 99 12/29/20 20:47 Resp 21 H 12/29/20 20:47 BP 157/100 H 12/29/20 20:47 Pulse Ox 96 12/29/20 20:47 Body Mass Index 33.2 Const: General: cooperative and no acute distress Orientation/consciousness: patient oriented x3 Eyes: General: appearance normal, both eyes and all related structures Resp: Effort & Inspection: normal respiratory effort and able to speak in complete sentences Cardio: Rate: regular rate Rhythm: regular rhythm GI: Other: Right upper quadrant tenderness, no rebound, no guarding Palpation (GI): Soft to palpation Auscultation: normal bowel sounds Skin: General skin exam: no rashes or lesions noted Neuro: General: patient oriented x3 Cognition (Neuro): normal cognition Extrem: General: Yes normal to inspection and Yes no pedal edema Results Labs CBC and Chem 7: 12/29/20 17:45 12/29/20 17:45 Labs: Laboratory Results - last 24 hr 12/29/20 12/29/20 12/29/20 17:45 17:45 17:45 MCV 85.1 MCH 29.7 MCHC 34.9 RDW 13.9 Plt Count 92 L D MPV 9.4 Immature Gran % (Auto) 0.3 Neut % (Auto) 56.9 Lymph % (Auto) 30.9 Burnett % (Auto) 9.7 Eos % (Auto) 1.4 Baso % (Auto) 0.8 Lymph # (Auto) 1.1 L Burnett # (Auto) 0.4 Eos # (Auto) 0.1 Baso # (Auto) 0.0 Abs Immat Gran (auto) 0.01 Absolute Neuts (auto) 2.0 Absolute Nucleated RBC 0.000 Nucleated RBC % (auto) 0.0 PT INR Anion Gap 19 Estim Creat Clear Calc 175.2 Estimated GFR > 60 Random Glucose 180 H D Lactic Acid Calcium 9.4 D Magnesium 1.4 L* Total Bilirubin 0.8 AST 135 H ALT 128 H Alkaline Phosphatase 203 H D Lactate Dehydrogenase 257 Total Protein 7.7 D Albumin 4.4 D Lipase 26 Ethyl Alcohol < 10 COVID-19 ([facility]) COVID-19 Clin Com 12/29/20 12/29/20 12/29/20 17:45 19:23 20:48 MCV MCH MCHC RDW Plt Count MPV Immature Gran % (Auto) Neut % (Auto) Lymph % (Auto) Burnett % (Auto) Eos % (Auto) Baso % (Auto) Lymph # (Auto) Burnett # (Auto) Eos # (Auto) Baso # (Auto) Abs Immat Gran (auto) Absolute Neuts (auto) Absolute Nucleated RBC Nucleated RBC % (auto) PT 13.2 H INR 1.1 Anion Gap Estim Creat Clear Calc Estimated GFR Random Glucose Lactic Acid 1.3 Calcium Magnesium Total Bilirubin AST ALT Alkaline Phosphatase Lactate Dehydrogenase Total Protein Albumin Lipase Ethyl Alcohol COVID-19 ([facility]) Negative COVID-19 Clin Com See Note Imaging Radiologist's Impressions: Impressions Abdomen/Pelvis CT 12/29/20 17:23 IMPRESSION: 1. No evidence of recurrent pancreatitis as a cause for the patient's upper abdominal pain. 2. Redemonstrated enlarged fatty liver 3. Area of narrowing in sigmoid colon most likely secondary to underdistention. Correlate with heme positive stools, BE or sigmoidoscopy. Assessment and Plan (1) Abdominal pain: Status: Acute (2) Alcohol withdrawal: Status: Acute (3) Low blood magnesium level: Status: Acute This is a 35-year-old male with past medical history of alcohol abuse presents to the hospital in alcohol withdrawal, experiencing hallucinations as well as abdominal pain # abdominal pain - no evidence of SBP, has no ascites, no cholelithiasis, or cholecystitis seen on CT abdomen - afebrile, no leukocytosis - at this time possibly secondary to fatty liver - will obtain ultrasound of the abdomen - pain management # alcohol abuse with alcohol withdrawal - has auditory hallucination - uses about 1 pt of alcohol daily, currently alcohol level is negative - will start him on phenobarb - thiamine and folic acid supplement # hypomagnesemia - repeated - follow Mag level # hypertension - stable - continue amlodipine # depression anxiety - continue clonazepam, escitalopram DVT prophylaxis: lovenox alcohol
[2020-12-29 23:45] VITALS: BP 169/102; PULSE 99; RESP 18; TEMP 37.1; O2SAT 97
[2020-12-30] MEDS: PHENobarbitaL sodium 130 MG/ML VIAL 280 MG IM ×2 (00:02→03:36)
[2020-12-30] MEDS: 0.9 % Sodium Chloride Flush 3 ML SYRINGE IVFLUSH ×4 (00:03→22:05)
[2020-12-30] MEDS: Enoxaparin Sodium 40 MG/0.4 ML SYRINGE SUBCUT ×2 (00:03→22:05)
[2020-12-30 03:43] VITALS: BP 153/90; PULSE 90; RESP 18; TEMP 37; O2SAT 95
[2020-12-30] MEDS: Omeprazole 20 MG CAPSULE.DR PO (05:51)
[2020-12-30 06:14] LABS: Glucose Urine UA >=1000 MG/DL (NEG); Leukocyte Esterase Urine NEG (NEG); Nitrite Urine NEG (NEG); Urine Blood NEG (NEG); Urine Ketones 40 MG/DL (NEG); Urine Protein TRACE MG/DL (NEG-TRACE)
[2020-12-30 06:18] LABS: Appearance Urine CLEAR; Color Urine YELLOW
[2020-12-30 06:39] LABS: Amphetamine Screen Urine Not Detected (Not Detect); Barbiturates, Urine POSITIVE (Not Detect); Benzodiazepines Screen Urine Not Detected (Not Detect); Cannabinoid Screen Urine POSITIVE (Not Detect); Cocaine Screen Urine Not Detected (Not Detect); Opiate Screen Urine POSITIVE (Not Detect); Phencyclidine Screen Urine Not Detected (Not Detect)
[2020-12-30 06:49] LABS: RBC Urine 0 /HPF (0); Squamous Epithelial Cell Urine TRACE /LPF; WBC Urine 0 /HPF (0-4)
[2020-12-30 06:50] LABS: Mucus Urine TRACE /LPF
[2020-12-30 06:53] VITALS: BP 129/82; PULSE 81; RESP 18; TEMP 35.8; O2SAT 98
[2020-12-30 07:24] LABS: Hematocrit 42.8 % (42-52); Hemoglobin 14.7 g/dl (14.0-18.0); Imm Gran Abs Auto 0.01 X10*3/uL (0.00-0.03); Imm Gran Pct Auto 0.2 % (0.0-0.4); Lymphocytes Absolute Auto 0.4 X10*3/uL (1.2-4.9); Lymphocytes Percent Auto 8.8 % (20-40); MANUAL DIFF FLAG SCAN; Mean Corpuscular HGB Conc 34.3 g/dl (31.0-36.0); Mean Corpuscular Hemoglobin 29.6 pg (27.0-33.0); Mean Corpuscular Volume 86.3 fL (80-98); Mean Platelet Volume 9.6 fL (9.4-12.4); Monocytes Absolute Auto 0.1 X10*3/uL (0.1-1.2); Monocytes Percent Auto 1.2 % (2-11); Neutrophils Absolute Auto 3.8 X10*3/uL (2.0-8.3); Neutrophils Percent Auto 89.8 % (45-73); Platelet Count 100 X10*3/uL (160-400); Red Blood Count 4.96 X10*6/uL (4.60-5.80); Red Cell Distribution Width 13.6 % (11.0-16.0); SCAN SMEAR FLAG 1; White Blood Count 4.2 X10*3/uL (4.8-10.8)
[2020-12-30 08:00] LABS: SLIDE REVIEW VERIFIED
[2020-12-30 08:02] LABS: Blood Urea Nitrogen 10 mg/dL (9-16); Calcium 8.7 mg/dL (8.4-10.2); Creatinine Clr Calc Pharmacy 164.3; Estimated Glomerular Filt Rate > 60; Glucose Random 341 mg/dL (60-115)
[2020-12-30 08:08] LABS: Magnesium 1.9 mg/dL (1.6-2.6)
[2020-12-30 08:24] LABS: Anion Gap 18 (12-20); Carbon Dioxide 24 mmol/L (22-29); Chloride 97 mmol/L (96-108); Potassium 3.8 mmol/L (3.3-5.1); Sodium 135 mmol/L (135-145)
[2020-12-30] MEDS: Escitalopram Oxalate 10 MG TABLET PO (08:55)
[2020-12-30] MEDS: PHENobarbitaL 30 MG TABLET 60 MG PO ×2 (08:55→22:05)
[2020-12-30] MEDS: Folic Acid 1 MG TABLET PO (08:55)
[2020-12-30] MEDS: amLODIPine Besylate 5 MG TABLET PO (08:55)
[2020-12-30] MEDS: Docusate Sodium 100 MG CAPSULE PO (08:55)
--- NOTE | 2020-12-30 10:14 | P.PNIM_ITS ---
Subjective Subjective Date of Service: 12/30/20 Interval History: Seen in f/u for alcohol withdrawal, feels better today, less tremulous Review of Systems Gen: no fever Resp: no sob, no cough CV: no chest, no DEJESUS, no leg edema GI: No n/v, no abd pain Neuro: No confusion Physical Exam Vital Signs: Vital Signs: Last Vital Signs Temp 96.5 F L 12/30/20 06:53 Pulse 81 12/30/20 06:53 Resp 18 12/30/20 06:53 BP 129/82 12/30/20 06:53 Pulse Ox 98 12/30/20 06:53 Body Mass Index 33.2 Constitutional Awake and Alert, No apparent distress Neck Supple, No lymphadenopathy Cardiovascular RRR, No M/R/G, S1 S2, No S3 S4, No pedal edema Respiratory Lungs clear, No respiratory distress Gastrointestinal Non tender, Non-distended Skin No rash Neurological Alert & oriented x3, mild tremors in hands Psychological Appropriate affect Objective Data Current Medications Generic Name Dose Route Start Last Admin Trade Name Zakq PRN Reason Stop Dose Admin Acetaminophen 650 mg 12/29/20 22:32 Acetaminophen 325 Mg Tablet PO Q6H PRN Pain, Mild (Pain Scale 1-3) Amlodipine Besylate 5 mg 12/30/20 09:00 12/30/20 08:55 Amlodipine Besylate 5 Mg Tablet PO 5 mg DAILY DAX Administration Protocol Clonazepam 0.5 mg 12/29/20 22:32 Clonazepam 0.5 Mg Tablet PO BID PRN Anxiety Docusate Sodium 100 mg 12/30/20 09:00 12/30/20 08:55 Docusate Sodium 100 Mg Capsule PO 100 mg BID DAX Administration Enoxaparin Sodium 40 mg 12/29/20 23:00 12/30/20 00:03 Enoxaparin Sodium 40 Mg/0.4 Ml Syringe SUBCUT 40 mg Q24H DAX Administration Escitalopram Oxalate 10 mg 12/30/20 09:00 12/30/20 08:55 Escitalopram Oxalate 10 Mg Tablet PO 10 mg DAILY DAX Administration Folic Acid 1 mg 12/30/20 09:00 12/30/20 08:55 Folic Acid 1 Mg Tablet PO 1 mg DAILY DAX Administration Medication 1 each 12/30/20 09:00 No Benzodiazepines MISCELLANE DAILY [facility] Omeprazole 20 mg 12/30/20 06:30 12/30/20 05:51 Omeprazole 20 Mg Capsule. PO 20 mg DAILY@0630 DAX Administration Ondansetron HCl 4 mg 12/29/20 21:56 Ondansetron Hcl 4 Mg/2 Ml Vial IVPUSH Q8H PRN Nausea and Vomiting Pharmacy Consult 1 each 12/29/20 20:23 Consult Rx Perform Med Rec MISCELLANE ONCE PRN Consult order Phenobarbital 60 mg 12/30/20 09:00 12/30/20 08:55 Phenobarbital 30 Mg Tablet PO 12/31/20 21:01 60 mg BID DAX Administration Phenobarbital 30 mg 01/01/21 09:00 Phenobarbital 30 Mg Tablet PO 01/02/21 21:01 BID DAX Phenobarbital 15 mg 01/03/21 09:00 Phenobarbital 15 Mg Tablet PO 01/04/21 09:01 DAILY [facility] Sodium Chloride 3 ml 12/30/20 00:00 12/30/20 08:55 0.9 % Sodium Chloride Flush 3 Ml Syringe IVFLUSH 3 ml QSHIFT DAX Administration Thiamine HCl 100 mg 12/30/20 09:00 Thiamine Hcl 200 Mg/2 Ml Vial IVPUSH DAILY [facility] Labs CBC & Chem 7: 12/30/20 06:00 12/30/20 06:00 Assessment and Plan (1) Abdominal pain: Status: Acute (2) Alcohol withdrawal: Status: Acute (3) Low blood magnesium level: Status: Acute Assessment and Plan: 35-year-old male with past medical history of alcohol abuse presents to the hospital in alcohol withdrawal, experiencing hallucinations as well as abdominal pain # Abdominal pain - no evidence of SBP, has no ascites, no cholelithiasis, or cholecystitis seen on CT abdomen - afebrile, no leukocytosis - at this time possibly secondary to fatty liver - Liver US:1. Hepatomegaly with diffusely increased liver echogenicity suggesting hepatic steatosis. Correlation with liver enzymes recommended. 2. Mild splenomegaly. - pain management # alcohol abuse with alcohol withdrawal - has auditory hallucination - drinks 1.7 L of vodka a day -continue Phenobarb - thiamine and folic acid supplement -CARE team consult, he is highly motivated to quit, he has just relapse # hypomagnesemia - repeated - follow Mag level # Hypertension - stable - continue amlodipine # depression anxiety - continue clonazepam, escitalopram DVT prophylaxis: lovenox alcohol
[2020-12-30] MEDS: Thiamine HCL 200 MG/2 ML VIAL 100 MG IVPUSH (10:39)
[2020-12-30 10:49] VITALS: BP 136/67; PULSE 90; RESP 18; TEMP 36.1; O2SAT 97
--- NOTE | 2020-12-30 10:59 | MHC.RECOVSUP ---
Recovery Support note: Patient is a 35 year old Cook Islander speaking male who presented to [facility] ED due to symptoms of alcohol withdrawal. This gag writer met wit patient in to discuss alcohol use and recovery supports. Patient reports he was doing well with his sobriety until the end of last year. Patient was living alone and reported that he was feeling isolated and anxious and felt like he could moderate his alcohol intake. Patient reports his consumption steadily increased until he was drinking up to a handle of liquor a day. Patient reports he was hospitalized in August due to his alcohol use and he discharged to a sober living arrangement. Patient reports his sober roommate left in November and patient resumed drinking due to stress related to his apartment deposit. Patient states the situation with the deposit has been resolved and he acknowledges that drinking will never be a helpful way to deal with stressful situations or anxiety. Patient reports he is supported by an outpatient therapist, a psychiatrist and support groups. Patient reports he has not found AA helpful as he is not druze. Discussed SMART recovery with patient and provided information on this resource. Patient met with a Food Tester in the ED yesterday and he plans to continue working with one going forward. Discussed Vivitrol and provided patient with information on the [facility]. Patient is interested in getting the medication however he is planning on discussing it with his prescriber first. Encouraged patient to continue to utilize the supports he has in place and to reach out for support as needed.
--- NOTE | 2020-12-30 13:23 | MHC.CM.PN ---
CM MET WITH PT WHO REPORTS HE LIVES ALONE AND IS INDEPENDENT WTIH ALL CARE AND MOBILITY. PT DENIES THE USE OF DME OR HOME SERVICES. PT REPORTS HE HAS A HCP THAT SHOULD BE ON FILE HOWEVER CM DOES NOT FIND IT IN EMR. PT CONFIRMS JEREMY HESTER HIS PCP. CURRENT DC PLAN IS HOME WITH NO SERVICES FAMILY WILL TRANSPORT
[2020-12-30 15:53] VITALS: BP 140/84; PULSE 100; RESP 16; TEMP 36.7; O2SAT 98
[2020-12-30 20:00] VITALS: BP 138/82; PULSE 86; RESP 18; TEMP 36.9; O2SAT 97
[2020-12-30 23:47] VITALS: BP 145/84; PULSE 88; RESP 18; TEMP 36.8; O2SAT 96
[2020-12-31 03:04] VITALS: BP 145/78; PULSE 78; RESP 18; TEMP 36.5; O2SAT 96
[2020-12-31] MEDS: Omeprazole 20 MG CAPSULE.DR PO (05:35)
[2020-12-31 06:51] VITALS: BP 147/84; PULSE 90; RESP 18; TEMP 36.6; O2SAT 99
[2020-12-31] MEDS: PHENobarbitaL 30 MG TABLET 60 MG PO ×2 (08:16→21:10)
[2020-12-31] MEDS: Folic Acid 1 MG TABLET PO (08:17)
[2020-12-31] MEDS: amLODIPine Besylate 5 MG TABLET PO (08:17)
[2020-12-31] MEDS: Escitalopram Oxalate 10 MG TABLET PO (08:17)
[2020-12-31] MEDS: Thiamine HCL 200 MG/2 ML VIAL 100 MG IVPUSH (08:17)
[2020-12-31 08:56] LABS: Magnesium 1.6 mg/dL (1.6-2.6)
[2020-12-31 11:06] VITALS: BP 143/81; PULSE 78; RESP 18; TEMP 36; O2SAT 97
--- NOTE | 2020-12-31 11:13 | P.PNIM_ITS ---
Subjective Subjective Date of Service: 12/31/20 Interval History: Seen in f/u for alcohol withdrawal, feels better today, less tremulous Review of Systems Gen: no fever Resp: no sob, no cough CV: no chest, no DEJESUS, no leg edema GI: No n/v, no abd pain Neuro: No confusion Physical Exam Vital Signs: Vital Signs: Last Vital Signs Temp 96.8 F 12/31/20 11:06 Pulse 78 12/31/20 11:06 Resp 18 12/31/20 11:06 BP 143/81 H 12/31/20 11:06 Pulse Ox 97 12/31/20 11:06 Body Mass Index 33.2 Const: Other: Constitutional Awake and Alert, No apparent distress Neck Supple, No lymphadenopathy Cardiovascular RRR, No M/R/G, S1 S2, No S3 S4, No pedal edema Respiratory Lungs clear, No respiratory distress Gastrointestinal Non tender, Non-distended Skin No rash Neurological Alert & oriented x3 Psychological Appropriate affect Objective Data Current Medications Generic Name Dose Route Start Last Admin Trade Name Zakq PRN Reason Stop Dose Admin Acetaminophen 650 mg 12/29/20 22:32 Acetaminophen 325 Mg Tablet PO Q6H PRN Pain, Mild (Pain Scale 1-3) Amlodipine Besylate 5 mg 12/30/20 09:00 12/31/20 08:17 Amlodipine Besylate 5 Mg Tablet PO 5 mg DAILY DAX Administration Protocol Clonazepam 0.5 mg 12/29/20 22:32 Clonazepam 0.5 Mg Tablet PO BID PRN Anxiety Docusate Sodium 100 mg 12/30/20 09:00 12/31/20 08:18 Docusate Sodium 100 Mg Capsule PO Not Given BID DAX Enoxaparin Sodium 40 mg 12/29/20 23:00 12/30/20 22:05 Enoxaparin Sodium 40 Mg/0.4 Ml Syringe SUBCUT 40 mg Q24H DAX Administration Escitalopram Oxalate 10 mg 12/30/20 09:00 12/31/20 08:17 Escitalopram Oxalate 10 Mg Tablet PO 10 mg DAILY DAX Administration Folic Acid 1 mg 12/30/20 09:00 12/31/20 08:17 Folic Acid 1 Mg Tablet PO 1 mg DAILY DAX Administration Medication 1 each 12/30/20 09:00 No Benzodiazepines MISCELLANE DAILY DAX Omeprazole 20 mg 12/30/20 06:30 12/31/20 05:35 Omeprazole 20 Mg Capsule. PO 20 mg DAILY@0630 DAX Administration Ondansetron HCl 4 mg 12/29/20 21:56 Ondansetron Hcl 4 Mg/2 Ml Vial IVPUSH Q8H PRN Nausea and Vomiting Pharmacy Consult 1 each 12/29/20 20:23 Consult Rx Perform Med Rec MISCELLANE ONCE PRN Consult order Phenobarbital 60 mg 12/30/20 09:00 12/31/20 08:16 Phenobarbital 30 Mg Tablet PO 12/31/20 21:01 60 mg BID DAX Administration Phenobarbital 30 mg 01/01/21 09:00 Phenobarbital 30 Mg Tablet PO 01/02/21 21:01 BID DAX Phenobarbital 15 mg 01/03/21 09:00 Phenobarbital 15 Mg Tablet PO 01/04/21 09:01 DAILY [facility] Sodium Chloride 3 ml 12/30/20 00:00 12/30/20 22:05 0.9 % Sodium Chloride Flush 3 Ml Syringe IVFLUSH 3 ml QSHIFT DAX Administration Thiamine HCl 100 mg 12/30/20 09:00 12/31/20 08:17 Thiamine Hcl 200 Mg/2 Ml Vial IVPUSH 100 mg DAILY DAX Administration Labs CBC & Chem 7: 12/30/20 06:00 12/30/20 06:00 Microbiology Microbiology Results: Microbiology 12/29/20 19:23 Blood - Venous Blood Culture - Preliminary No growth after 24 hours. 12/29/20 19:23 Blood - Venous Blood Culture - Preliminary No growth after 24 hours. Assessment and Plan (1) Abdominal pain: Status: Acute (2) Alcohol withdrawal: Status: Acute (3) Low blood magnesium level: Status: Acute Assessment and Plan: 35-year-old male with past medical history of alcohol abuse presents to the hospital in alcohol withdrawal, experiencing hallucinations as well as abdominal pain # Abdominal pain--no more pain - no evidence of SBP, has no ascites, no cholelithiasis, or cholecystitis seen on CT abdomen - afebrile, no leukocytosis - at this time possibly secondary to fatty liver - Liver US:1. Hepatomegaly with diffusely increased liver echogenicity suggesting hepatic steatosis. Correlation with liver enzymes recommended. 2. Mild splenomegaly. - pain management # alcohol abuse with alcohol withdrawal - has auditory hallucination - drinks 1.7 L of vodka a day -continue Phenobarb - thiamine and folic acid supplement -CARE team consult, he is highly motivated to quit, he has just relapse # hypomagnesemia - repeated - follow Mag level # Hypertension #Abnormal glucose levels--likely undiagnosed diabetes, check Hgb A1C DVT prophylaxis: lovenox alcohol
[2020-12-31] MEDS: 0.9 % Sodium Chloride Flush 3 ML SYRINGE IVFLUSH ×2 (11:59→16:02)
[2020-12-31 13:45] LABS: Estimated Average Glucose 197 mg/dL; Hemoglobin A1c % 8.5 %
--- NOTE | 2020-12-31 14:34 | MHC.CM.PN ---
Per RN, Patient is newly diagnosed DM; a referral has been made to NA.CM will continue to follow for possible need to adjust the dc plan.
[2020-12-31 15:37] VITALS: BP 152/85; PULSE 78; RESP 18; TEMP 37.3; O2SAT 98
[2020-12-31 16:23] LABS: Glucose, Whole Blood 214 mg/dL (60-115)
[2020-12-31 19:31] VITALS: BP 155/75; PULSE 87; RESP 18; TEMP 37.1; O2SAT 97
[2020-12-31 20:09] LABS: Glucose, Whole Blood 206 mg/dL (60-115)
[2020-12-31] MEDS: Enoxaparin Sodium 40 MG/0.4 ML SYRINGE SUBCUT (23:09)
[2021-01-01] VITALS: BP 155/90; PULSE 83; RESP 18; TEMP 36.8; O2SAT 99
[2021-01-01] MEDS: 0.9 % Sodium Chloride Flush 3 ML SYRINGE IVFLUSH ×2 (00:38→08:53)
[2021-01-01] MEDS: clonazePAM 0.5 MG TABLET PO ×2 (00:40→09:09)
[2021-01-01 03:03] VITALS: BP 137/83; PULSE 86; RESP 18; TEMP 37.1; O2SAT 98
[2021-01-01] MEDS: Omeprazole 20 MG CAPSULE.DR PO (06:24)
[2021-01-01 07:37] LABS: Glucose, Whole Blood 172 mg/dL (60-115)
[2021-01-01 07:38] VITALS: BP 135/88; PULSE 83; RESP 20; TEMP 36.4; O2SAT 98
[2021-01-01] MEDS: Docusate Sodium 100 MG CAPSULE PO (08:53)
[2021-01-01] MEDS: amLODIPine Besylate 5 MG TABLET PO (08:53)
[2021-01-01] MEDS: Escitalopram Oxalate 10 MG TABLET PO (08:54)
[2021-01-01] MEDS: Folic Acid 1 MG TABLET PO (08:54)
[2021-01-01] MEDS: PHENobarbitaL 30 MG TABLET PO (08:54)
[2021-01-01] MEDS: metFORMIN HCl 500 MG TABLET PO (08:54)
[2021-01-01] MEDS: Thiamine HCL 200 MG/2 ML VIAL 100 MG IVPUSH (08:54)
[2021-01-01 09:14] LABS: Alanine Aminotransferase 67 U/L (0-40); Alkaline Phosphatase 148 U/L (39-117); Aspartate Amino Transferase 60 U/L (5-37); Bilirubin Direct 0.3 mg/dL (0.0-0.5); Bilirubin Total 0.8 mg/dL (0.0-1.0); Total Protein 6.9 g/dL (6.5-8.0)
--- NOTE | 2021-01-01 11:39 | P.DS_ITS ---
DS: Providers Provider Date of Service: 01/01/21 <Sara Castaneda NP - Last Filed: 01/01/21 11:49> Date of admission: 12/29/20 21:56 <Sara Castaneda NP - Last Filed: 01/01/21 11:49> Date of discharge: 01/01/21 <Sara Castaneda NP - Last Filed: 01/01/21 11:49> Primary care physician: John Penny MD <Sara Castaneda NP - Last Filed: 01/01/21 11:49> Admitting clinician: Dannie Garcia <Sara Castaneda NP - Last Filed: 01/01/21 11:49> Attending physician on admission: Dannie Garcia <Sara Castaneda NP - Last Filed: 01/01/21 11:49> Consults: 12/29/20 18:00 Consult to Care Team Stat Comment: Reason for consultation: interester in detox <Sara Castaneda NP - Last Filed: 01/01/21 11:49> Attending physician on discharge: Eddie Mejia <Sara Castaneda NP - Last Filed: 01/01/21 11:49> Discharging clinician: Sara Castaneda <Sara Castaneda NP - Last Filed: 01/01/21 11:49> DS: Diagnosis Discharge Diagnosis (1) Abdominal pain: Status: Acute <Sara Castaneda NP - Last Filed: 01/01/21 11:49> (2) Diabetes mellitus: Status: Acute <Sara Castaneda NP - Last Filed: 01/01/21 11:49> (3) Alcohol withdrawal: Status: Acute <Sara Castaneda NP - Last Filed: 01/01/21 11:49> DS: Medications Discharge Medications Home Medications: Home Medications Medication Instructions Recorded Confirmed amlodipine 5 mg PO DAILY 09/04/20 12/29/20 clonazepam 0.5 mg PO BID PRN 09/04/20 12/29/20 escitalopram oxalate 10 mg PO DAILY 09/04/20 12/29/20 gemfibrozil 600 mg PO BIDAC 09/04/20 12/29/20 omeprazole 20 mg PO DAILY 09/04/20 12/29/20 Previous Rx's Medication Instructions Recorded alcohol swabs [Alcohol Prep Pads] 1 pad TOPICAL .tid #200 ea 01/01/21 blood sugar diagnostic [FreeStyle #100 ea 01/01/21 Lite Strips] blood-glucose meter [FreeStyle #1 ea 01/01/21 Lite Meter] lancets [FreeStyle Lancets] #100 ea 01/01/21 metformin 500 mg PO BIDWM #60 tab 01/01/21 <Sara Castaneda MOP HANDLE ASSEMBLER - Last Filed: 01/01/21 11:49> DS: Summary Hospital Course Hospital Course: Hp as per admitting provider This is a 35-year-old male abuse, anxiety depression, hypertension, who presents to the hospital with complaints of abdominal pain that started 2 days ago, the abdominal pain is localized to the epigastric region radiating to the right, associated with nausea and vomiting, 8/10, no alleviating or relieving factors. Patient reports that he is also in alcohol withdrawal, he is having visual hallucinations. Last drink was this a.m.. He usually drinks about over a pt of vodka daily. Denies having any chest pain, no shortness of breath, he is also having diarrhea that started today. He is not having any urinary symptoms, no lower extremity edema, numbness tingling or weakness. No fever or chills. On arrival to the ED patient found to have a temp of 98.2?, heart rate of 92, respiratory rate of 16, blood pressure 166/102, satting 96% on room air Labs are significant for WBC count of 3.6 which is chronically low, PT of 13.2, INR of 1.1, sodium of 140, magnesium of 1.4, AST of 135, ALT of 128, alk-phos of 203, which is chronically high, COVID-19 negative, alcohol level negative. COVID-19 negative, Abdominal pelvic CT shows no evidence of recurrent pancreatitis, redemonstrated enlarged fatty liver, areas of narrowing in sigmoid colon most likely secondary to under distension . next Abdominal pain. Likely secondary to hepatic steatosis with history of heavy alcohol abuse. No nausea, vomiting, diarrhea. Total bili remained normal at 0.8, AST down to 60 from 135, ALT down to 67 from 128. patient reports drinking at least to handle of alcohol a day. He was seen by the care team and seems motivated to quit alcohol. He was treated with phenobarbital protocol while inpatient as well as PPI. He has no further complaints of abdominal pain, appetite is good. He is safe for discharge home. Diabetes mellitus. Appears to be new onset. A1c is 8.5. Patient will be sent home with metformin 500 mg twice daily, freestyle Lite meter and supplies. He is to follow up with his primary care provider for further management of new onset diabetes. Also discussed the importance of weight loss, healthy eating and most importantly cessation of alcohol. Patient's past medical history as below on confirmed with him <Sara Castaneda NP - Last Filed: 01/01/21 11:49> Time Spent with Patient Time attestation: Total time spent providing and/or coordinating discharge services: <Sara Castaneda NP - Last Filed: 01/01/21 11:49> Discharge coordination time: Greater than 30 minutes <Sara Castaneda NP - Last Filed: 01/01/21 11:49> Quality: Stroke Does the patient have a stroke diagnosis?: No <Sara Catsaneda NP - Last Filed: 01/01/21 11:49> Physical Exam Vital Signs: Vital Signs: Last Vital Signs Temp 97.6 F 01/01/21 07:38 Pulse 83 01/01/21 07:38 Resp 20 01/01/21 07:38 BP 135/88 01/01/21 07:38 Pulse Ox 98 01/01/21 07:38 Body Mass Index 33.2 <Sara Castaneda NP - Last Filed: 01/01/21 11:49> Appearing in no acute distress head is normocephalic atraumatic eyes pupils are PERRLA sclera is anicteric mouth throat mucous membranes are intact and moist neck is supple no lymphadenopathy, no JVD noted lung sounds are clear to auscultation heart regular rate rhythm, clear S1, S2 positive bowel sounds, abdomen is soft, nontender neuro patient is alert x3, no focal deficits <Sara Castaneda NP - Last Filed: 01/01/21 11:49> DS: Data Data Completed and Pending Completed studies during hospitalization [Text1]: Procedures Detoxification Services for Substance Abuse Treatment (09/04/20) <Sara Castaneda NP - Last Filed: 01/01/21 11:49> Labs on day of discharge: Laboratory Results - last 24 hr 12/31/20 12/31/20 12/31/20 07:56 16:20 20:06 POC Glucose 214 H 206 H Estimat Average Glucose 197 Hemoglobin A1c % 8.5 Total Bilirubin Direct Bilirubin AST ALT Alkaline Phosphatase Total Protein Albumin 01/01/21 01/01/21 07:33 08:30 POC Glucose 172 H Estimat Average Glucose Hemoglobin A1c % Total Bilirubin 0.8 Direct Bilirubin 0.3 AST 60 H ALT 67 H Alkaline Phosphatase 148 H D Total Protein 6.9 Albumin 4.0 Preliminary micro results at discharge 12/29/20 19:23 Blood Culture - Preliminary Blood - Venous No growth after 48 hours. 12/29/20 19:23 Blood Culture - Preliminary Blood - Venous No growth after 48 hours. <Sara Castaneda NP - Last Filed: 01/01/21 11:49> Discharge Plan Discharge Anticipated Discharge Date/Time: 01/01/21 08:06 <Sara Castaneda NP - Last Filed: 01/01/21 11:49> Patient Disposition: Home Health Service <Sara Castaneda NP - Last Filed: 01/01/21 11:49> Discharge Diagnosis: Abdominal pain secondary to fatty liver disease Alcohol abuse <Sara Castaneda NP - Last Filed: 01/01/21 11:49> Abdominal pain secondary to fatty liver disease Alcohol abuse <Eddie Mejia MD - Last Filed: 01/01/21 20:03> Referrals: padmini visiting nurse [Other] - 1 Week John Penny MD [Primary Care Provider] - 1 Week <Sara Castaneda NP - Last Filed: 01/01/21 11:49> Discharge Medications: New metformin 500 mg Tablet 500 mg PO BIDWM Qty: 60 RF: 0 (DME) blood-glucose meter [FreeStyle Lite Meter] Kit See Rx Instructions .ROUTE .MEDSUPPLY Qty: 1 RF: 0 (DME) lancets [FreeStyle Lancets] 28 gauge misc See Rx Instructions .ROUTE .MEDSUPPLY Qty: 100 RF: 0 (DME) FreeStyle Lite Strips Strip See Rx Instructions .ROUTE .MEDSUPPLY Qty: 100 RF: 0 alcohol swabs [Alcohol Prep Pads] Pads, Medicated 1 pad topical .tid Qty: 200 RF: 0 Continued clonazepam 0.5 mg Tablet 0.5 mg PO BID PRN (Reason: Anxiety) RF: 0 amlodipine 5 mg Tablet 5 mg PO DAILY RF: 0 gemfibrozil 600 mg Tablet 600 mg PO BIDAC RF: 0 omeprazole 20 mg Capsule,Delayed Release(Dr/Ec) 20 mg PO DAILY RF: 0 escitalopram oxalate 10 mg Tablet 10 mg PO DAILY RF: 0 <Sara Castaneda NP - Last Filed: 01/01/21 11:49> Discharge Orders: Discharge Order (Routine); Ordered 01/01/21 Ordered By: Sara Castaneda <Sara Castaneda NP - Last Filed: 01/01/21 11:49> Diet: advance to usual diet <Sara Castaneda NP - Last Filed: 01/01/21 11:49> advance to usual diet <Eddie Mejia MD - Last Filed: 01/01/21 20:03> Activity on Discharge: As tolerated <Sara Castaneda NP - Last Filed: 01/01/21 11:49> As tolerated <Eddie Mejia MD - Last Filed: 01/01/21 20:03> Stand Alone Forms: Patient Portal Discharge page, Work/School Release <Sara Castaneda NP - Last Filed: 01/01/21 11:49> Care Plan Goals: Cessation of alcoholic beverages <Sara Castaneda NP - Last Filed: 01/01/21 11:49> Health Concerns: Fatty liver disease Alcohol abuse <Sara Castaneda NP - Last Filed: 01/01/21 11:49> Plan of Treatment: Follow-up with your primary care provider as needed Joint support group such as alcoholics [facility] for assistance with quitting alcohol Follow instructions for the use of your new glucometer and supplies -check your blood sugar at least 3 times daily prior to meals -document your blood sugars -take new oral medication as prescribed <Sara Castaneda NP - Last Filed: 01/01/21 11:49> Assessment: See discharge summary I saw and examined the patient and disucssed finding and mangement with MOP HANDLE ASSEMBLER and I agree with disposition, meds as writtent by MOP HANDLE ASSEMBLER <Sara Castaneda NP - Last Filed: 01/01/21 11:49> Discharge Date/Time: 01/01/21 13:34 <Sara Castaneda NP - Last Filed: 01/01/21 11:49>
--- NOTE | 2021-01-01 11:49 | MHC.CM.PN ---
pt dcd today home with ns ,pt is a nrw diabetic..family to transport
[2021-01-01] MEDS: Insulin Lispro 100 UNIT/ML 3 ML VIAL SUBCUT (11:56)
[2021-01-01 11:57] LABS: Glucose, Whole Blood 153 mg/dL (60-115)
[2021-01-01 12:00] VITALS: BP 155/95; PULSE 85; RESP 20; TEMP 36.7; O2SAT 98
--- NOTE | 2021-01-01 14:34 | W.MHC.F2F ---
Documented by User: Sara Castaneda NP 01/01/21 14:34 Service Date Service Date: 01/01/21 Encounter Date of encounter: 01/01/21 Reasons for Services Reason for detention: diabetic teaching Homebound: Leaving the home is medically contraindicated at this time without the asist of a device and/or another person due th the listed conditions above and below. Certification: Based on the above findings, I certify that this patient is confined to the home and needs intermittent detention care, physical therapy and/or speech therapy, or continues to need occupational therapy. The patient is under my care, and I have initiated the establishment of the plan of care. The patient will be followed by a physician who will periodically review the plan of care.
== END 2021-01-01 13:34 | disposition home health service (06) | DRG 425 ==
LOC: HO.ED 20:46 → HO.EDOVER 22:23 → HO.IMC 22:40
PROVIDERS: Nurse Practitioner Acute Care; Physician Assistant Medical; Admitting Provider Internal Medicine; Emergency Provider Emergency Medicine; PCP Internal Medicine; Visit Provider Internal Medicine
DX: E83.42 Hypomagnesemia (principal); K76.0 Fatty (change of) liver, not elsewhere classified; E11.9 Type 2 diabetes mellitus without complications; F41.9 Anxiety disorder, unspecified; F10.132 Alcohol abuse with withdrawal with perceptual disturbance; F17.210 Nicotine dependence, cigarettes, uncomplicated; F32.9 Major depressive disorder, single episode, unspecified; I10 Essential (primary) hypertension; Z20.822 Contact with and (suspected) exposure to COVID-19; Z71.6 Tobacco abuse counseling; Z79.899 Other long term (current) drug therapy
CPT/HCPCS: 36415; 74177; 76700; 80048; 80053; 80076; 80307; 81001; 82077; 82947; 83036; 83605; 83615; 83690; 83735; 85025; 85610; 87040; 87635; 99285; J1200; J1650; J2060; J2270; J2405; J2560; J2930; J3411; J3475; Q9967

== ENCOUNTER 2021-07-10 09:18 | Inpatient (IN) | payer OTHER, SELFPAY ==
--- NOTE | ~2021-07-10 | MR_ITS ---
EXAMINATION: MR ABDOMEN WITHOUT CONTRAST CLINICAL INFORMATION: Cholecystitis. COMPARISON: Baseline including 07/10/2021 TECHNIQUE: MR abdomen is performed without gadolinium contrast. MRCP. FINDINGS: LUNG BASES: The visualized lung bases are unremarkable. LIVER, GALLBLADDER, AND BILIARY TREE: Notably enlarged measuring up to approximately 29 cm in craniocaudal span. Changes of severe hepatic steatosis. No biliary ductal dilatation. CBD only measures 3 mm. The gallbladder is abnormal demonstrating wall thickening and pericholecystic edema. Prominent phrygian cap noted. No definite gallstones are discernible on MRI. PANCREAS: Unremarkable. SPLEEN: Unremarkable. ADRENAL GLANDS: Unremarkable. KIDNEYS AND URETERS: The kidneys are normal in size and shape. No hydronephrosis. No perinephric stranding. MR/MR MRCP IMPRESSION: Targeted exam demonstrates marked hepatomegaly with changes of severe hepatic steatosis. There is no biliary ductal dilatation or definite gallstones but the gallbladder wall is thickened with pericholecystic fluid. This warrants correlation with LFTs and clinical assessment. The gallbladder findings may be related to adjacent liver disease including nonspecific hepatitis. The lack of excretion on the recent HIDA scan may be related to severe cholestasis due to the liver disease. No choledocholithiasis.
--- NOTE | ~2021-07-10 | US_ITS ---
EXAMINATION: US ABDOMEN LIMITED CLINICAL INFORMATION: Right upper quadrant abdominal pain, and jaundice.. COMPARISON: Abdominal ultrasound done on 12/30/[address] of the abdomen and pelvis done on 12/29/2020. TECHNIQUE: Real-time imaging of the right upper quadrant abdominal viscera. FINDINGS: PANCREAS: Nonvisualized due to overlying bowel gas, accordingly not evaluated. LIVER: Diffuse heterogeneous abnormal increased echotexture is present, consistent with diffuse liver disease likely secondary to hepatic steatosis or hepatocellular disease or combination thereof, study dated 12/29/2020 and 12/30/2020. No superimposed focal liver lesion. There is no evidence of any intrahepatic biliary ductal dilatation seen. The right lobe of the liver measures 24.2 cm while the left lobe measures 16.8 cm. GALLBLADDER: Abnormal. Shows evidence of gallbladder wall thickening and presence of gallbladder sludge filling of the almost entire lumen. No evidence of any gallstones. The patient apparently was tender at the time of the examination over the gallbladder. The findings may represent acute acalculous cholecystitis. No gallbladder wall thickening and the presence of gallbladder sludge appear new since 12/30/2020. COMMON BILE DUCT: Normal in caliber measuring 0.5 cm in diameter. RIGHT KIDNEY: Normal. No hydronephrosis. No renal calculi or focal parenchymal lesions. The kidney measures 12.9 cm in maximum dimension. FREE FLUID: None. US/US abdomen limited IMPRESSION: 1. Abnormal liver showing features consistent with diffuse liver disease, likely secondary to hepatic steatosis or hepatocellular disease or combination thereof, appear similar to prior studies dated 12/29/2020 and 12/30/2020. No superimposed focal liver lesion. 2. Abnormal gallbladder showing evidence of gallbladder wall thickening and echogenic bile without any definite calculi. Apparent positive sonographic Elizabeth's sign. The findings may represent acute acalculous cholecystitis. 3. Decompressed biliary tree and morphologically normal-appearing right kidney.
--- NOTE | ~2021-07-10 | NM_ITS ---
EXAMINATION: BILIARY TRACT IMAGING STUDY CLINICAL INFORMATION: Right upper quadrant pain, jaundice. COMPARISON: CT abdomen/pelvis dated from 12/29/2020 and abdominal ultrasound done earlier today at 10:40 AM. TECHNIQUE: Serial gamma scintillation camera images were obtained over the abdomen for a total observation period of 4 hours following the intravenous administration of 6 mCi Tc-99m mebrofenin. NM/NM hepatobiliary wo pharm FINDINGS/IMPRESSION: There is decreased radiotracer uptake by the liver and no evidence of radiotracer activity within the biliary tree. The gallbladder is not visualized. There is no radiotracer activity within the bowel. These constellation of findings are likely related with severe liver disease and in this setting evaluation of acute cholecystitis with this imaging modality is nondiagnostic. Less likely, these findings could be related with a significant biliary obstruction for which correlation with an MRCP or with an interval planar image in 24 hours could be obtained. This critical result was discussed with Dr Garcia at 07/10/2021 9:31 PM and it was ascertained that the content and urgency of the report was understood at the time of direct communication.
[2021-07-10 09:38] VITALS: BP 144/72; PULSE 123; RESP 18; TEMP 37; O2SAT 96; BMI 35.9
--- NOTE | 2021-07-10 10:17 | ED.ABDPAIN ---
HPI - Abdominal Pain General Chief Complaint: Abdominal Pain Stated Complaint: Detox/jaundice/abd pain Time Seen by Provider: 07/10/21 09:57 Source: patient, family and old records reviewed Mode of arrival: ambulatory Limitations: no limitations History of Present Illness HPI narrative: 35-year-old male with history of generalized anxiety disorder, depression, alcohol abuse with history of alcohol withdrawal, history of acute alcoholic hepatitis, history of pancreatitis who presents to the ER with right upper quadrant pain and jaundice. He reports he required admission here for acute alcoholic hepatitis in the past. He was sober for 3 months after. He relapsed about 8 or 9 weeks ago and has been drinking about 750mL of vodka per day. His last drink was around 04:00 today. He started noticing his skin was turning a light yellow color last week. He states yesterday it started being noticeable to other people and is eyes turned yellow as well. He has had right upper quadrant pain for about a week as well that has been getting worse. He has had nausea and vomiting and not being able to tolerate much p.o.. He is very anxious and nervous. His depression and anxiety drove him to resume drinking couple of months ago. MD elicited complaint: abdominal pain Pertinent past history: other (Alcoholic hepatitis and pancreatitis.) Onset (ago): day(s) Pain Consistency: constant Location: epigastric and RUQ Severity: moderate Pain scale (0-10): 6 Quality: aching and fullness Radiation: none Migration to: no migration Exacerbating factors: movement Context: history of similar episodes Associated symptoms: nausea and vomiting Related Data Home Medications Medication Instructions Recorded Confirmed amlodipine 5 mg tablet 5 mg PO DAILY 09/04/20 07/10/21 clonazepam 0.5 mg tablet 0.5 mg PO BID PRN 09/04/20 07/10/21 escitalopram oxalate 10 mg tablet 10 mg PO DAILY 09/04/20 07/10/21 gemfibrozil 600 mg tablet 600 mg PO BIDAC 09/04/20 07/10/21 omeprazole 20 mg capsule,delayed 20 mg PO DAILY PRN 09/04/20 07/10/21 release Allergies Allergy/AdvReac Type Severity Reaction Status Date / Time Iodinated Contrast Media Allergy Hives Verified 12/29/20 21:49 [Contrast Dye] Review of Systems Review of Systems Constitutional: No Fever, No Chills ENT/Mouth: No sore throat, No Rhinorrhea, No Swallowing Difficulty Eyes: No Eye Pain, No Swelling, No Redness, +yellowing of the eyes Cardiovascular: No Chest Pain, No SOB, No Orthopnea, + Edema Respiratory: No Cough, No Sputum, No Wheezing, No dyspnea Gastrointestinal: + Nausea, + Vomiting, No Diarrhea, + abdominal Pain, No Hematochezia, No Melena Genitourinary: No Dysuria, No Urinary Frequency, No Hematuria Musculoskeletal: No joint pain, No Myalgias Skin: No Skin Lesions, No rash Neuro: No Weakness, No Numbness, No Dizziness, No Headache Psych: + Anxiety/Panic, + Depression Heme/Lymph: No Bruising, No Lymphadenopathy Endocrine: No Polyuria, No Polydipsia Physical Exam Vital Signs: Vital Signs: Last Vital Signs Temp 98.4 F 07/10/21 12:07 Pulse 115 H 07/10/21 13:10 Resp 24 H 07/10/21 13:10 BP 129/79 07/10/21 13:10 Pulse Ox 97 07/10/21 13:10 BMI result Body Mass Index 35.9 Appearance: Alert. Oriented X3. Jaundice and with icteric sclera Eyes: Pupils equal, round and reactive to light. Sclera icteric bilaterally ENT: Pharynx normal. Neck: Normal inspection. Neck supple. CVS: Tachycardic, regular rhythm Pulses normal. Respiratory: No respiratory distress. Breath sounds normal. Abdomen: Softly distended with RUQ and epigastric tenderness. +hepatomegaly. +BS x4 Skin: Skin warm and dry. Skin is yellow in colot. Normal skin turgor. No rashes. Extremities: No lower extremity edema. Neuro: Oriented X 3. No motor deficit. No sensory deficit. Anxiopus Course Course Course Narrative: 35 y/o male with history of alcoholism, hisotry of ETOH hepatitis and pancreatitis, hx withdrawal presenting to the ER with RUQ pain, jaundice, N/V and anxiety in the setting of alcohol relapse x8 weeks. It appears he has recurrent alcoholic hepatitis. High risk for severe withdrawal. Will get labs to calculate his discriminant function and see if he needs prednisolone. Reevaluation(s) Reevaluation #1: 12:30 - Patient is pancytopenic most likely due to alcohol abuse. He has mild coagulopathy. His bilirubin is significantly elevated at 21.6. Lactic acid is 6. AST/ALT 245/61 with alk phos 245. He has not been able to eat or drink anything other than alcohol in days. Suspect his lactic acid elevation is due to starvation ketosis and not sepsis. ETOH level 49, hold off on phenobarbital for now. 12:50 - His U/S is showing diffuse hepatocellular disease similar to prior however he has new gallbladder findings showing possible acalculous cholecystitis. Will cover with Zosyn for now, IVF and have Dr. Pfeiffer weigh in. 1:15 - His calculated discriminant function is elevated at 39 indicating he would benefit from steroids for his alcoholic hepatitis however given there is possible infection with acute acalculous cholecystitis unable to treat with steroids at this time. Will admit for further management. Dr. Pfeiffer recommending a HIDA scan for further evaluation. Will plan for admission to medicine service. Consultations Consultation #1: Dr. Pfeiffer - General Surgery MDM - Abdominal Pain Lab Data Result diagrams: 07/10/21 12:04 07/10/21 12:04 Labs: Lab Results 07/10/21 07/10/21 07/10/21 Range/Units 11:59 12:04 12:04 WBC 4.2 L (4.8-10.8) X10*3/uL RBC 3.20 L (4.60-5.80) X10*6/uL Hgb 11.2 L (14.0-18.0) g/dl Hct 32.4 L (42.0-52.0) % MCV 101.3 H (80.0-98.0) fL MCH 35.0 H (27.0-33.0) pg MCHC 34.6 (31.0-36.0) g/dl RDW 16.0 (11.0-16.0) % Plt Count 122 L (160-400) X10*3/uL MPV 9.5 (9.4-12.4) fL Immature Gran % (Auto) 0.5 H (0.0-0.4) % Neut % (Auto) 57.5 (45-73) % Lymph % (Auto) 24.6 (20-40) % [place] % (Auto) 15.7 H (2-11) % Eos % (Auto) 0.7 (0-4) % Baso % (Auto) 1.0 (0-2) % Lymph # (Auto) 1.0 L (1.2-4.9) X10*3/uL [place] # (Auto) 0.7 (0.1-1.2) X10*3/uL Eos # (Auto) 0.0 (0.0-0.4) X10*3/uL Baso # (Auto) 0.0 (0.0-0.2) X10*3/uL Abs Immat Gran (auto) 0.02 (0.00-0.03) X10*3/uL Absolute Neuts (auto) 2.4 (2.0-8.3) x10*3/uL Absolute Nucleated RBC 0.000 (0.0-0.012) X10*3/uL Nucleated RBC % (auto) 0.0 (0.0-0.2) /100WBC PT 15.7 H (9.9-13.0) SEC INR 1.4 H (0.9-1.1) APTT 44.5 H (24.1-38.0) SEC Sodium (135-145) mmol/L Potassium (3.3-5.1) mmol/L Chloride (96-108) mmol/L Carbon Dioxide (22-29) mmol/L Anion Gap (12-20) BUN (9-16) mg/dL Creatinine (0.5-1.4) mg/dL Estim Creat Clear Calc Estimated GFR Random Glucose (60-115) mg/dL Lactic Acid 6.1 H* (0.5-2.0) mmol/L Calcium (8.4-10.2) mg/dL Magnesium (1.6-2.6) mg/dL Total Bilirubin (0.0-1.0) mg/dL Direct Bilirubin (0.0-0.5) mg/dL AST (5-37) U/L ALT (0-40) U/L Alkaline Phosphatase (39-117) U/L Ammonia (13-55) umol/L Total Protein (6.5-8.0) g/dL Albumin (3.5-5.0) g/dL Lipase (8-78) U/L Urine Color Urine Appearance Urine pH (5.0-8.0) Ur Specific [place] (1.005-1.025) Urine Protein (NEG-TRACE) MG/DL Urine Glucose (UA) (NEG) MG/DL Urine Ketones (NEG) MG/DL Urine Blood (NEG) Urine Nitrite (NEG) Ur Leukocyte Esterase (NEG) Urine RBC (0) /HPF Urine WBC (0-4) /HPF Ur Squamous Epith Cells /LPF Urine Bacteria /LPF Urine Mucus /LPF Urine Opiates Screen (Not Detect) Urine Fentanyl Screen (Not Detect) Ur Barbiturates Screen (Not Detect) Ur Phencyclidine Scrn (Not Detect) Ur Amphetamines Screen (Not Detect) U Benzodiazepines Scrn (Not Detect) Urine Cocaine Screen (Not Detect) U Marijuana (THC) Screen (Not Detect) Ethyl Alcohol mg/dL COVID-19 ([facility]) (Negative) COVID-19 Clin Com 07/10/21 07/10/21 07/10/21 Range/Units 12:04 12:04 12:04 WBC (4.8-10.8) X10*3/uL RBC (4.60-5.80) X10*6/uL Hgb (14.0-18.0) g/dl Hct (42.0-52.0) % MCV (80.0-98.0) fL MCH (27.0-33.0) pg MCHC (31.0-36.0) g/dl RDW (11.0-16.0) % Plt Count (160-400) X10*3/uL MPV (9.4-12.4) fL Immature Gran % (Auto) (0.0-0.4) % Neut % (Auto) (45-73) % Lymph % (Auto) (20-40) % [place] % (Auto) (2-11) % Eos % (Auto) (0-4) % Baso % (Auto) (0-2) % Lymph # (Auto) (1.2-4.9) X10*3/uL [place] # (Auto) (0.1-1.2) X10*3/uL Eos # (Auto) (0.0-0.4) X10*3/uL Baso # (Auto) (0.0-0.2) X10*3/uL Abs Immat Gran (auto) (0.00-0.03) X10*3/uL Absolute Neuts (auto) (2.0-8.3) x10*3/uL Absolute Nucleated RBC (0.0-0.012) X10*3/uL Nucleated RBC % (auto) (0.0-0.2) /100WBC PT (9.9-13.0) SEC INR (0.9-1.1) APTT (24.1-38.0) SEC Sodium 131 L (135-145) mmol/L Potassium 3.0 L D (3.3-5.1) mmol/L Chloride 90 L (96-108) mmol/L Carbon Dioxide 25 (22-29) mmol/L Anion Gap 19 (12-20) BUN 2 L (9-16) mg/dL Creatinine 0.55 (0.5-1.4) mg/dL Estim Creat Clear Calc 248.5 Estimated GFR > 60 Random Glucose 224 H (60-115) mg/dL Lactic Acid (0.5-2.0) mmol/L Calcium 7.9 L D (8.4-10.2) mg/dL Magnesium 1.5 L (1.6-2.6) mg/dL Total Bilirubin 21.6 H (0.0-1.0) mg/dL Direct Bilirubin 16.0 H (0.0-0.5) mg/dL AST 245 H (5-37) U/L ALT 61 H (0-40) U/L Alkaline Phosphatase 246 H D (39-117) U/L Ammonia 51 (13-55) umol/L Total Protein 5.9 L (6.5-8.0) g/dL Albumin 2.9 L D (3.5-5.0) g/dL Lipase 24 (8-78) U/L Urine Color Urine Appearance Urine pH (5.0-8.0) Ur Specific [place] (1.005-1.025) Urine Protein (NEG-TRACE) MG/DL Urine Glucose (UA) (NEG) MG/DL Urine Ketones (NEG) MG/DL Urine Blood (NEG) Urine Nitrite (NEG) Ur Leukocyte Esterase (NEG) Urine RBC (0) /HPF Urine WBC (0-4) /HPF Ur Squamous Epith Cells /LPF Urine Bacteria /LPF Urine Mucus /LPF Urine Opiates Screen (Not Detect) Urine Fentanyl Screen (Not Detect) Ur Barbiturates Screen (Not Detect) Ur Phencyclidine Scrn (Not Detect) Ur Amphetamines Screen (Not Detect) U Benzodiazepines Scrn (Not Detect) Urine Cocaine Screen (Not Detect) U Marijuana (THC) Screen (Not Detect) Ethyl Alcohol mg/dL COVID-19 ([facility]) Negative (Negative) COVID-19 Clin Com See Note 07/10/21 07/10/21 07/10/21 Range/Units 12:04 12:04 12:04 WBC (4.8-10.8) X10*3/uL RBC (4.60-5.80) X10*6/uL Hgb (14.0-18.0) g/dl Hct (42.0-52.0) % MCV (80.0-98.0) fL MCH (27.0-33.0) pg MCHC (31.0-36.0) g/dl RDW (11.0-16.0) % Plt Count (160-400) X10*3/uL MPV (9.4-12.4) fL Immature Gran % (Auto) (0.0-0.4) % Neut % (Auto) (45-73) % Lymph % (Auto) (20-40) % [place] % (Auto) (2-11) % Eos % (Auto) (0-4) % Baso % (Auto) (0-2) % Lymph # (Auto) (1.2-4.9) X10*3/uL [place] # (Auto) (0.1-1.2) X10*3/uL Eos # (Auto) (0.0-0.4) X10*3/uL Baso # (Auto) (0.0-0.2) X10*3/uL Abs Immat Gran (auto) (0.00-0.03) X10*3/uL Absolute Neuts (auto) (2.0-8.3) x10*3/uL Absolute Nucleated RBC (0.0-0.012) X10*3/uL Nucleated RBC % (auto) (0.0-0.2) /100WBC PT (9.9-13.0) SEC INR (0.9-1.1) APTT (24.1-38.0) SEC Sodium (135-145) mmol/L Potassium (3.3-5.1) mmol/L Chloride (96-108) mmol/L Carbon Dioxide (22-29) mmol/L Anion Gap (12-20) BUN (9-16) mg/dL Creatinine (0.5-1.4) mg/dL Estim Creat Clear Calc Estimated GFR Random Glucose (60-115) mg/dL Lactic Acid (0.5-2.0) mmol/L Calcium (8.4-10.2) mg/dL Magnesium (1.6-2.6) mg/dL Total Bilirubin (0.0-1.0) mg/dL Direct Bilirubin (0.0-0.5) mg/dL AST (5-37) U/L ALT (0-40) U/L Alkaline Phosphatase (39-117) U/L Ammonia (13-55) umol/L Total Protein (6.5-8.0) g/dL Albumin (3.5-5.0) g/dL Lipase (8-78) U/L Urine Color BROWN Urine Appearance HAZY Urine pH 6.5 (5.0-8.0) Ur Specific [place] 1.025 (1.005-1.025) Urine Protein 2+ H (NEG-TRACE) MG/DL Urine Glucose (UA) 500 H (NEG) MG/DL Urine Ketones 15 (NEG) MG/DL Urine Blood NEG (NEG) Urine Nitrite POS H (NEG) Ur Leukocyte Esterase TRACE H (NEG) Urine RBC 0 (0) /HPF Urine WBC 0-2 (0-4) /HPF Ur Squamous Epith Cells 1+ /LPF Urine Bacteria 1+ /LPF Urine Mucus 1+ /LPF Urine Opiates Screen Not Detected (Not Detect) Urine Fentanyl Screen Not Detected (Not Detect) Ur Barbiturates Screen Not Detected (Not Detect) Ur Phencyclidine Scrn Not Detected (Not Detect) Ur Amphetamines Screen Not Detected (Not Detect) U Benzodiazepines Scrn Not Detected (Not Detect) Urine Cocaine Screen Not Detected (Not Detect) U Marijuana (THC) Screen Not Detected (Not Detect) Ethyl Alcohol 49 mg/dL COVID-19 ([facility]) (Negative) COVID-19 Clin Com Critical Care Time Critical Care Time Critical Care Time: Yes Total Critical Care Time: 45 Attestation: I have personally provided critical care time exclusive of time spent on separately billable procedures. Time includes review of lab data, radiology results, discussion with consultants, and monitoring for potential decompensation. Intervention performed as documented. Discharge Plan Discharge Clinical Impression: Acute alcoholic hepatitis, Acalculous cholecystitis Patient Disposition: Admitted As Inpatient [facility] Past Medical History Medical History Alcoholism Anxiety Depression Hypertension with normal renal function Pancreatitis Family History Family History Other HTN (hypertension) Social History Social History Household Members: None Household Members Other:: roomate Housing: Apartment Do you presently have visiting nurse or other home services: No Alcohol intake: current Alcohol intake frequency: 3 or more drinks per day Patient Tobacco Use Status: Current everyday Tobacco user Cigarettes Per Day: 1 Second Hand Smoke Exposure: No Substance Use Type: Marijuana Advance Directives: No Advance Directives Information Provided: Yes service: No Current occupational status: employed
[2021-07-10] MEDS: 0.9 % Sodium Chloride 1,000 ML 999 ML IVCONT (10:26)
[2021-07-10] MEDS: LORazepam 2 MG/ML VIAL 1 MG IVPUSH (10:33)
--- NOTE | 2021-07-10 11:04 | PHA.MEDREC ---
Pharmacy Consult ? Medication Reconciliation Pharmacy has completed the medication reconciliation. Patient is no longer taking metformin, and ran out of refills for lopid. Thanks Joshua
[2021-07-10 12:07] VITALS: BP 135/78; PULSE 108; RESP 20; TEMP 36.9; O2SAT 97
[2021-07-10 12:18] LABS: MANUAL DIFF FLAG NO
[2021-07-10 12:27] LABS: Eosinophils Percent Auto 0.7 % (0-4); Hematocrit 32.4 % (42.0-52.0); Hemoglobin 11.2 g/dl (14.0-18.0); Imm Gran Abs Auto 0.02 X10*3/uL (0.00-0.03); Imm Gran Pct Auto 0.5 % (0.0-0.4); Lymphocytes Percent Auto 24.6 % (20-40); Mean Corpuscular HGB Conc 34.6 g/dl (31.0-36.0); Mean Corpuscular Volume 101.3 fL (80.0-98.0); Mean Platelet Volume 9.5 fL (9.4-12.4); Monocytes Absolute Auto 0.7 X10*3/uL (0.1-1.2); Monocytes Percent Auto 15.7 % (2-11); Neutrophils Absolute Auto 2.4 x10*3/uL (2.0-8.3); Neutrophils Percent Auto 57.5 % (45-73); Platelet Count 122 X10*3/uL (160-400); White Blood Count 4.2 X10*3/uL (4.8-10.8)
[2021-07-10] MEDS: Piperacillin Sodium/Tazobactam 3.375 GM in 0.9 % Sodium Chloride 50 ML IV (12:27)
[2021-07-10 12:28] LABS: INTERNATIONAL NORM RATIO 1.4 (0.9-1.1); Prothrombin Time 15.7 SEC (9.9-13.0)
[2021-07-10 12:31] LABS: Appearance Urine HAZY; Color Urine BROWN; Glucose Urine UA 500 MG/DL (NEG); Leukocyte Esterase Urine TRACE (NEG); Nitrite Urine POS (NEG); PH 6.5 (5.0-8.0); Partial Thromboplastin Time 44.5 SEC (24.1-38.0); Specific Gravity - Urine 1.025 (1.005-1.025); UACC Culture Trigger YES; Urine Blood NEG (NEG); Urine Ketones 15 MG/DL (NEG); Urine Protein 2+ MG/DL (NEG-TRACE)
[2021-07-10 12:35] LABS: Ethanol 49 mg/dL
[2021-07-10 12:38] LABS: Amphetamine Screen Urine Not Detected (Not Detect); Barbiturates, Urine Not Detected (Not Detect); Benzodiazepines Screen Urine Not Detected (Not Detect); Cannabinoid Screen Urine Not Detected (Not Detect); Cocaine Screen Urine Not Detected (Not Detect); Fentanyl, urine Not Detected (Not Detect); Opiate Screen Urine Not Detected (Not Detect); Phencyclidine Screen Urine Not Detected (Not Detect)
[2021-07-10 12:39] LABS: Lactic Acid 6.1 mmol/L (0.5-2.0)
[2021-07-10 12:41] LABS: Alanine Aminotransferase 61 U/L (0-40); Albumin Level 2.9 g/dL (3.5-5.0); Alkaline Phosphatase 246 U/L (39-117); Anion Gap 19 (12-20); Aspartate Amino Transferase 245 U/L (5-37); Blood Urea Nitrogen 2 mg/dL (9-16); Calcium 7.9 mg/dL (8.4-10.2); Carbon Dioxide 25 mmol/L (22-29); Chloride 90 mmol/L (96-108); Creatinine Clr Calc Pharmacy 248.5; Estimated Glomerular Filt Rate > 60; Glucose Random 224 mg/dL (60-115); Lipase 24 U/L (8-78); Magnesium 1.5 mg/dL (1.6-2.6); Sodium 131 mmol/L (135-145); Total Protein 5.9 g/dL (6.5-8.0)
[2021-07-10 12:42] LABS: Ammonia 51 umol/L (13-55)
[2021-07-10 12:44] LABS: COVID-19 Test Negative (Negative)
[2021-07-10 12:50] LABS: Bilirubin Total 21.6 mg/dL (0.0-1.0)
[2021-07-10 12:52] LABS: Bacteria Urine 1+ /LPF; Mucus Urine 1+ /LPF; RBC Urine 0 /HPF (0); Squamous Epithelial Cell Urine 1+ /LPF; WBC Urine 0-2 /HPF (0-4)
[2021-07-10 13:10] VITALS: BP 129/79; PULSE 115; RESP 24; O2SAT 97
[2021-07-10] MEDS: Magnesium Sulfate/H2O 2 GM/50 ML PIGGYBACK IV (13:17)
[2021-07-10] MEDS: Potassium Chloride ER 20 MEQ TAB.ER.PRT 40 MEQ PO (13:18)
[2021-07-10 14:16] LABS: Reflex Lactate? Lactic Acid Added
[2021-07-10 15:06] LABS: ~Lactic Acid-LAB USE ONLY 5.5 mmol/L (0.5-2.0)
--- NOTE | 2021-07-10 15:06 | P.HPHOSP_ITS ---
History of Present Illness Date of Service: 07/10/21 35yo M with alcohol use disorder complicated by prior episodes of pancreatitis and hepatitis was sober for 3 months after his last admission for alcohol withdrawal, but then relapsed 8 weeks ago due to uncontrolled anxiety. He's been drinking 750 mL of vodka daily as recently as this morning. No prior seizures. He developd intermittent, moderate-intensity, non-radiating RUQ pain approximately 1 week ago and then noticed worsening jaundice about 4 days ago. No hematemesis, hematochezia, or melena. No diarrhea. He endorses nausea and vomiting and has been eating very little. In the ED, he was noted to be jaundiced with Tbili of 21.6, AST 245, ALT 61. Lactate was 6.1. K was 3 and Mg 1.5. US demonstrated diffuse liver disease and gallbladder wall thickening without any calculi; sonographic Elizabeth sign was present. Review of Systems Review of Systems: Yes all other systems are reviewed and are negative [facility] Medical History (Updated 07/10/21 @ 15:15 by Romy Dave MD) Alcoholism Anxiety Depression Hypertension Hypertension with normal renal function Pancreatitis Type 2 diabetes mellitus Functional capacity: independent ambulation Family History Other HTN (hypertension) Social History Household Members: None Household Members Other:: roomate Housing: Apartment Do you presently have visiting nurse or other home services: No Alcohol intake: current Alcohol intake frequency: 3 or more drinks per day Patient Tobacco Use Status: Current everyday Tobacco user Cigarettes Per Day: 1 Second Hand Smoke Exposure: No Substance Use Type: Marijuana Advance Directives: No Advance Directives Information Provided: Yes service: No Current occupational status: employed Meds Allergies Allergy/AdvReac Type Severity Reaction Status Date / Time Iodinated Contrast Media Allergy Hives Verified 12/29/20 21:49 [Contrast Dye] Active Medications: Current Medications Amlodipine Besylate (Amlodipine Besylate 5 Mg Tablet) 5 mg PO DAILY DAX; Protocol Dextrose (Dextrose 50 % 25 Gm/50 Ml Vial) 25 gm IVPUSH Q15M PRN; Protocol PRN Reason: per Hypoglycemia Standing Ord. Enoxaparin Sodium (Enoxaparin Sodium 40 Mg/0.4 Ml Syringe) 40 mg SUBCUT Q24H [facility] Escitalopram Oxalate (Escitalopram Oxalate 10 Mg Tablet) 10 mg PO DAILY [facility] Folic Acid (Folic Acid 1 Mg Tablet) 1 mg PO DAILY [facility] Glucose (Glucose Gel 15 Gm Gel..Gram.) 15 gm PO Q15M PRN; Protocol PRN Reason: per Hypoglycemia Standing Ord. Insulin Human Lispro (Insulin Lispro 100 Unit/Ml 3 Ml Vial) 0 unit SUBCUT QIDACHS [facility]; Protocol Medication (No Benzodiazepines) 1 each MISCELLANE DAILY [facility] Multivitamins/Vitamin C (Multivitamin Tablet) 1 tab PO DAILY [facility] Omeprazole (Omeprazole 20 Mg Capsule.Dr) 20 mg PO DAILY@0630 PRN PRN Reason: gerd Ondansetron HCl (Ondansetron Hcl 4 Mg/2 Ml Vial) 4 mg IVPUSH Q8H PRN PRN Reason: Nausea and Vomiting Pentoxifylline (Pentoxifylline Er 400 Mg Tablet.Er) 400 mg PO TID [facility] Pharmacy Consult (Consult Rx Perform Med Rec) 1 each MISCELLANE ONCE PRN PRN Reason: Consult order Phenobarbital (Phenobarbital 30 Mg Tablet) 30 mg PO BID [facility]; Protocol Stop: 07/14/21 21:01 Phenobarbital (Phenobarbital 30 Mg Tablet) 60 mg PO BID [facility]; Protocol Stop: 07/12/21 21:01 Phenobarbital (Phenobarbital 30 Mg Tablet) 30 mg PO DAILY [facility]; Protocol Stop: 07/16/21 09:01 Phenobarbital Sodium (Phenobarbital Sodium 130 Mg/Ml Vial) 233 mg IM Q3H [facility]; Protocol Stop: 07/10/21 21:01 Sodium Chloride (0.9 % Sodium Chloride Flush 3 Ml Syringe) 3 ml IVFLUSH QSHIFT [facility] Thiamine HCl (Thiamine Hcl 100 Mg Tablet) 100 mg PO DAILY [facility] Home Medications Medication Instructions Recorded Confirmed Last Taken Type amlodipine 5 mg tablet 5 mg PO DAILY 09/04/20 07/10/21 07/10/21 History clonazepam 0.5 mg tablet 0.5 mg PO BID PRN 09/04/20 07/10/21 07/09/21 History escitalopram oxalate 10 mg tablet 10 mg PO DAILY 09/04/20 07/10/21 07/09/21 History gemfibrozil 600 mg tablet 600 mg PO BIDAC 09/04/20 07/10/21 09/04/20 History omeprazole 20 mg capsule,delayed 20 mg PO DAILY PRN 09/04/20 07/10/21 09/04/20 History release Physical Exam Vital Signs and Narrative: Vital Signs: Last Vital Signs Temp 98.4 F 07/10/21 12:07 Pulse 115 H 07/10/21 13:10 Resp 24 H 07/10/21 13:10 BP 129/79 07/10/21 13:10 Pulse Ox 97 07/10/21 13:10 BMI result Body Mass Index 35.9 Gen: tremulous HEENT: sclera icteric, moist mucus membranes Neck: supple Lungs: clear to auscultation bilaterally Heart: tachycardic, no murmurs Abd: soft, RUQ tender without rebound, non-distended Ext: no edema Skin: warm/well-perfused Neuro: alert and oriented x3, no focal findings, no asterixis Psych: appropriate affect Results Labs CBC and Chem 7: 07/10/21 12:04 07/10/21 12:04 Labs: Laboratory Results - last 24 hr 07/10/21 07/10/21 07/10/21 11:59 12:04 12:04 MCV 101.3 H MCH 35.0 H MCHC 34.6 RDW 16.0 Plt Count 122 L MPV 9.5 Immature Gran % (Auto) 0.5 H Neut % (Auto) 57.5 Lymph % (Auto) 24.6 [place] % (Auto) 15.7 H Eos % (Auto) 0.7 Baso % (Auto) 1.0 Lymph # (Auto) 1.0 L [place] # (Auto) 0.7 Eos # (Auto) 0.0 Baso # (Auto) 0.0 Abs Immat Gran (auto) 0.02 Absolute Neuts (auto) 2.4 Absolute Nucleated RBC 0.000 Nucleated RBC % (auto) 0.0 PT 15.7 H INR 1.4 H APTT 44.5 H Anion Gap Estim Creat Clear Calc Estimated GFR Random Glucose Lactic Acid 6.1 H* Lactic Acid Fup @ 2Hr Calcium Magnesium Total Bilirubin Direct Bilirubin AST ALT Alkaline Phosphatase Ammonia Total Protein Albumin Lipase Urine Color Urine Appearance Urine pH Ur Specific [place] Urine Protein Urine Glucose (UA) Urine Ketones Urine Blood Urine Nitrite Ur Leukocyte Esterase Urine RBC Urine WBC Ur Squamous Epith Cells Urine Bacteria Urine Mucus Urine Opiates Screen Urine Fentanyl Screen Ur Barbiturates Screen Ur Phencyclidine Scrn Ur Amphetamines Screen U Benzodiazepines Scrn Urine Cocaine Screen U Marijuana (THC) Screen Ethyl Alcohol COVID-19 ([facility]) COVID-19 Clin Com 07/10/21 07/10/21 07/10/21 12:04 12:04 12:04 MCV MCH MCHC RDW Plt Count MPV Immature Gran % (Auto) Neut % (Auto) Lymph % (Auto) [place] % (Auto) Eos % (Auto) Baso % (Auto) Lymph # (Auto) [place] # (Auto) Eos # (Auto) Baso # (Auto) Abs Immat Gran (auto) Absolute Neuts (auto) Absolute Nucleated RBC Nucleated RBC % (auto) PT INR APTT Anion Gap 19 Estim Creat Clear Calc 248.5 Estimated GFR > 60 Random Glucose 224 H Lactic Acid Lactic Acid Fup @ 2Hr Calcium 7.9 L D Magnesium 1.5 L Total Bilirubin 21.6 H Direct Bilirubin 16.0 H AST 245 H ALT 61 H Alkaline Phosphatase 246 H D Ammonia 51 Total Protein 5.9 L Albumin 2.9 L D Lipase 24 Urine Color Urine Appearance Urine pH Ur Specific [place] Urine Protein Urine Glucose (UA) Urine Ketones Urine Blood Urine Nitrite Ur Leukocyte Esterase Urine RBC Urine WBC Ur Squamous Epith Cells Urine Bacteria Urine Mucus Urine Opiates Screen Urine Fentanyl Screen Ur Barbiturates Screen Ur Phencyclidine Scrn Ur Amphetamines Screen U Benzodiazepines Scrn Urine Cocaine Screen U Marijuana (THC) Screen Ethyl Alcohol COVID-19 ([facility]) Negative COVID-19 Clin Com See Note 07/10/21 07/10/21 07/10/21 12:04 12:04 12:04 MCV MCH MCHC RDW Plt Count MPV Immature Gran % (Auto) Neut % (Auto) Lymph % (Auto) [place] % (Auto) Eos % (Auto) Baso % (Auto) Lymph # (Auto) [place] # (Auto) Eos # (Auto) Baso # (Auto) Abs Immat Gran (auto) Absolute Neuts (auto) Absolute Nucleated RBC Nucleated RBC % (auto) PT INR APTT Anion Gap Estim Creat Clear Calc Estimated GFR Random Glucose Lactic Acid Lactic Acid Fup @ 2Hr Calcium Magnesium Total Bilirubin Direct Bilirubin AST ALT Alkaline Phosphatase Ammonia Total Protein Albumin Lipase Urine Color BROWN Urine Appearance HAZY Urine pH 6.5 Ur Specific [place] 1.025 Urine Protein 2+ H Urine Glucose (UA) 500 H Urine Ketones 15 Urine Blood NEG Urine Nitrite POS H Ur Leukocyte Esterase TRACE H Urine RBC 0 Urine WBC 0-2 Ur Squamous Epith Cells 1+ Urine Bacteria 1+ Urine Mucus 1+ Urine Opiates Screen Not Detected Urine Fentanyl Screen Not Detected Ur Barbiturates Screen Not Detected Ur Phencyclidine Scrn Not Detected Ur Amphetamines Screen Not Detected U Benzodiazepines Scrn Not Detected Urine Cocaine Screen Not Detected U Marijuana (THC) Screen Not Detected Ethyl Alcohol 49 COVID-19 ([facility]) COVID-19 Clin Com 07/10/21 14:34 MCV MCH MCHC RDW Plt Count MPV Immature Gran % (Auto) Neut % (Auto) Lymph % (Auto) [place] % (Auto) Eos % (Auto) Baso % (Auto) Lymph # (Auto) [place] # (Auto) Eos # (Auto) Baso # (Auto) Abs Immat Gran (auto) Absolute Neuts (auto) Absolute Nucleated RBC Nucleated RBC % (auto) PT INR APTT Anion Gap Estim Creat Clear Calc Estimated GFR Random Glucose Lactic Acid Lactic Acid Fup @ 2Hr 5.5 H* Calcium Magnesium Total Bilirubin Direct Bilirubin AST ALT Alkaline Phosphatase Ammonia Total Protein Albumin Lipase Urine Color Urine Appearance Urine pH Ur Specific [place] Urine Protein Urine Glucose (UA) Urine Ketones Urine Blood Urine Nitrite Ur Leukocyte Esterase Urine RBC Urine WBC Ur Squamous Epith Cells Urine Bacteria Urine Mucus Urine Opiates Screen Urine Fentanyl Screen Ur Barbiturates Screen Ur Phencyclidine Scrn Ur Amphetamines Screen U Benzodiazepines Scrn Urine Cocaine Screen U Marijuana (THC) Screen Ethyl Alcohol COVID-19 ([facility]) COVID-19 Clin Com Imaging Radiologist's Impressions: Impressions Abdomen Ultrasound 07/10/21 10:59 IMPRESSION: 1. Abnormal liver showing features consistent with diffuse liver disease, likely secondary to hepatic steatosis or hepatocellular disease or combination thereof, appear similar to prior studies dated 12/29/2020 and 12/30/2020. No superimposed focal liver lesion. 2. Abnormal gallbladder showing evidence of gallbladder wall thickening and echogenic bile without any definite calculi. Apparent positive sonographic Elizabeth's sign. The findings may represent acute acalculous cholecystitis. 3. Decompressed biliary tree and morphologically normal-appearing right kidney. Assessment and Plan (1) Cholestatic jaundice: Status: Acute (2) Alcoholic hepatitis: Status: Acute (3) Lactic acid acidosis: Status: Acute 35yo M with alcohol use disorder complicated by hepatitis, pancreatitis, and withdrawal presenting with RUQ pain and cholestatic jaundice. # cholestatic jaundice - admit to C. Likely EtOH hepatitis, severe with MDF 39. However, question of acalculous cholecystitis is present, so will obtain HIDA scan and Surgery/GI consultations. Pending rule out of cholecystitis, will give pentoxyfilline rather than steroids. Monitor LFTs # EtOH intoxication with high-risk withdrawal - start phenobarbital taper and vitamin supplementations; consult CARE Team and Addiction Medicine # lactic acidosis - doubt sepsis, suspect due to dehydration/EtOH; will give LR # hypoK - repleted; recheck in am # hypoMg - repleted; recheck in am # pancytopenia - mild, likely due to myelosuppression from EtOH; monitor CBC # HTN - continue amlodipine # DM2 - correction-dose lispro; check A1c # anxiety - continue escitalopram # VTE ppx - LMWH # code - full Quality Stroke Does the patient have a stroke diagnosis?: No VTE Prior VTE?: No VTE Risk Level:: Medical - moderate - high VTE Device Contraindication: N/A - Device Ordered VTE Drug Contraindication: N/A - Med Ordered
[2021-07-10 15:20] LABS: Estimated Average Glucose 217 mg/dL; Hemoglobin A1c % 9.2 %
[2021-07-10 15:54] LABS: Vitamin B12 586 pg/mL (200-900)
--- NOTE | 2021-07-10 16:17 | P.CONGS_ITS ---
History of Present Illness Consult details Consult date: 07/10/21 Requesting physician: Romy Dave Narrative: 35-year-old male patient with a prior history of alcohol abuse, pancreatitis, hepatitis presenting with a several day history of abdominal pain in the right upper quadrant and epigastrium. He reports returning to drinking heavily (a 750 mL bottle of vodka on a daily basis) he began to note pain in the right upper quadrant last week along with changes of skin color with the yellow discoloration of his skin and eyes and darkening of his urine. He subsequently presented to the emergency department was noted to have markedly elevated LFTs. Ultrasound of the abdomen revealed a thickened gallbladder wall with biliary sludge, new from his prior ultrasound. Diffuse liver disease was also identified on ultrasound. No gallstones were present. Surgical consultation was requested for possible cholecystectomy. Review of Systems Review of Systems: Yes all other systems are reviewed and are negative Constitutional: Constitutional: Reports anorexia, Denies chills, Denies fever(s) and Reports malaise Eyes: Comments: Yellow eyes Cardiovascular: Cardiovascular: Denies chest pain, Reports Epigastric Pain, Denies irregular heart rhythm and Denies leg edema Respiratory: Respiratory: Denies chest congestion, Denies cough and Denies p ain with cough Gastrointestinal: Gastrointestinal: Reports abdominal pain, Reports constipation, Denies diarrhea, Reports nausea and Reports vomiting Genitourinary: Genitourinary: Reports no additional male genitourinary complaints Integumentary/Breasts: Comments: Yellow skin Hematologic/Lymphatic: Hematologic/Lymphatic: Denies lymphadenopathy PMFSH Past Medical History Medical History Alcoholism Anxiety Depression Hypertension Hypertension with normal renal function Pancreatitis Type 2 diabetes mellitus Family History Family History Other HTN (hypertension) Social History Social History Household Members: None Household Members Other:: roomate Housing: Apartment Do you presently have visiting nurse or other home services: No Alcohol intake: current Alcohol intake frequency: 3 or more drinks per day Patient Tobacco Use Status: Current everyday Tobacco user Cigarettes Per Day: 1 Second Hand Smoke Exposure: No Substance Use Type: Marijuana Advance Directives: No Advance Directives Information Provided: Yes service: No Current occupational status: employed Meds Allergies Allergy/AdvReac Type Severity Reaction Status Date / Time Iodinated Contrast Media Allergy Hives Verified 12/29/20 21:49 [Contrast Dye] Active Medications: Current Medications Amlodipine Besylate (Amlodipine Besylate 5 Mg Tablet) 5 mg PO DAILY [facility]; Protocol Dextrose (Dextrose 50 % 25 Gm/50 Ml Vial) 25 gm IVPUSH Q15M PRN; Protocol PRN Reason: per Hypoglycemia Standing Ord. Enoxaparin Sodium (Enoxaparin Sodium 40 Mg/0.4 Ml Syringe) 40 mg SUBCUT Q24H [facility] Escitalopram Oxalate (Escitalopram Oxalate 10 Mg Tablet) 10 mg PO DAILY [facility] Folic Acid (Folic Acid 1 Mg Tablet) 1 mg PO DAILY [facility] Glucose (Glucose Gel 15 Gm Gel..Gram.) 15 gm PO Q15M PRN; Protocol PRN Reason: per Hypoglycemia Standing Ord. Lactated Ringer's (Lr) 1,000 mls @ 125 mls/hr IVCONT .Q8H [facility] Insulin Human Lispro (Insulin Lispro 100 Unit/Ml 3 Ml Vial) 0 unit SUBCUT QIDACHS [facility]; Protocol Medication (No Benzodiazepines) 1 each MISCELLANE DAILY [facility] Multivitamins/Vitamin C (Multivitamin Tablet) 1 tab PO DAILY [facility] Omeprazole (Omeprazole 20 Mg Capsule.Dr) 20 mg PO DAILY@0630 PRN PRN Reason: gerd Ondansetron HCl (Ondansetron Hcl 4 Mg/2 Ml Vial) 4 mg IVPUSH Q8H PRN PRN Reason: Nausea and Vomiting Pentoxifylline (Pentoxifylline Er 400 Mg Tablet.Er) 400 mg PO TID [facility] Pharmacy Consult (Consult Rx Perform Med Rec) 1 each MISCELLANE ONCE PRN PRN Reason: Consult order Phenobarbital (Phenobarbital 30 Mg Tablet) 30 mg PO BID [facility]; Protocol Stop: 07/14/21 21:01 Phenobarbital (Phenobarbital 30 Mg Tablet) 60 mg PO BID [facility]; Protocol Stop: 07/12/21 21:01 Phenobarbital (Phenobarbital 30 Mg Tablet) 30 mg PO DAILY [facility]; Protocol Stop: 07/16/21 09:01 Phenobarbital Sodium (Phenobarbital Sodium 130 Mg/Ml Vial) 233 mg IM Q3H [facility]; Protocol Stop: 07/10/21 21:01 Sodium Chloride (0.9 % Sodium Chloride Flush 3 Ml Syringe) 3 ml IVFLUSH QSHIFT [facility] Thiamine HCl (Thiamine Hcl 100 Mg Tablet) 100 mg PO DAILY [facility] Home Medications Medication Instructions Recorded Confirmed Last Taken Type amlodipine 5 mg tablet 5 mg PO DAILY 09/04/20 07/10/21 07/10/21 History clonazepam 0.5 mg tablet 0.5 mg PO BID PRN 09/04/20 07/10/21 07/09/21 History escitalopram oxalate 10 mg tablet 10 mg PO DAILY 09/04/20 07/10/21 07/09/21 History gemfibrozil 600 mg tablet 600 mg PO BIDAC 09/04/20 07/10/21 09/04/20 History omeprazole 20 mg capsule,delayed 20 mg PO DAILY PRN 09/04/20 07/10/21 09/04/20 History release Physical Exam Vital Signs: Vital Signs: Last Vital Signs Temp 98.4 F 07/10/21 12:07 Pulse 115 H 07/10/21 13:10 Resp 24 H 07/10/21 13:10 BP 129/79 07/10/21 13:10 Pulse Ox 97 07/10/21 13:10 BMI result Body Mass Index 35.9 Const: General: cooperative, well developed, alert and ill appearing Nutritional Appearance: well nourished Orientation/consciousness: patient oriented x3 Limitations: no limitations HENMT: Head: Yes normocephalic and Yes atraumatic Ears: hearing grossly normal bilaterally Eyes: Sclerae: scleral abnormal (Scleral icterus) EOM: EOMs intact bilaterally Neck: Neck: Yes no lymphadenopathy Resp: Effort & Inspection: normal respiratory effort, no audible wheezes, no cough and no respiratory distress GI: Inspection: Yes normal to inspection Palpation (GI): Soft to palpation and Tenderness to palpation present (GI) in the epigastrum, in the RUQ and Elizabeth's sign positive Percussion: Yes normal to percussion Auscultation: normal bowel sounds Rectal Exam - Male: Yes deferred Skin: General skin exam: dry skin, no erythema and jaundice Neuro: General: patient oriented x3 Extrem: General: Yes normal to inspection and Yes no clubbing, cyanosis or edema Results Labs Result diagrams: 07/10/21 12:04 07/10/21 12:04 Labs: Abnormal lab results 07/10/21 07/10/21 07/10/21 Range/Units 11:59 12:04 12:04 WBC 4.2 L (4.8-10.8) X10*3/uL RBC 3.20 L (4.60-5.80) X10*6/uL Hgb 11.2 L (14.0-18.0) g/dl Hct 32.4 L (42.0-52.0) % MCV 101.3 H (80.0-98.0) fL MCH 35.0 H (27.0-33.0) pg Plt Count 122 L (160-400) X10*3/uL Immature Gran % (Auto) 0.5 H (0.0-0.4) % Price % (Auto) 15.7 H (2-11) % Lymph # (Auto) 1.0 L (1.2-4.9) X10*3/uL PT 15.7 H (9.9-13.0) SEC INR 1.4 H (0.9-1.1) APTT 44.5 H (24.1-38.0) SEC Sodium (135-145) mmol/L Potassium (3.3-5.1) mmol/L Chloride (96-108) mmol/L BUN (9-16) mg/dL Random Glucose (60-115) mg/dL Lactic Acid 6.1 H* (0.5-2.0) mmol/L Lactic Acid Fup @ 2Hr (0.5-2.0) mmol/L Calcium (8.4-10.2) mg/dL Magnesium (1.6-2.6) mg/dL Total Bilirubin (0.0-1.0) mg/dL Direct Bilirubin (0.0-0.5) mg/dL AST (5-37) U/L ALT (0-40) U/L Alkaline Phosphatase (39-117) U/L Total Protein (6.5-8.0) g/dL Albumin (3.5-5.0) g/dL Urine Protein (NEG-TRACE) MG/DL Urine Glucose (UA) (NEG) MG/DL Urine Nitrite (NEG) Ur Leukocyte Esterase (NEG) 07/10/21 07/10/21 07/10/21 Range/Units 12:04 12:04 14:34 WBC (4.8-10.8) X10*3/uL RBC (4.60-5.80) X10*6/uL Hgb (14.0-18.0) g/dl Hct (42.0-52.0) % MCV (80.0-98.0) fL MCH (27.0-33.0) pg Plt Count (160-400) X10*3/uL Immature Gran % (Auto) (0.0-0.4) % Price % (Auto) (2-11) % Lymph # (Auto) (1.2-4.9) X10*3/uL PT (9.9-13.0) SEC INR (0.9-1.1) APTT (24.1-38.0) SEC Sodium 131 L (135-145) mmol/L Potassium 3.0 L D (3.3-5.1) mmol/L Chloride 90 L (96-108) mmol/L BUN 2 L (9-16) mg/dL Random Glucose 224 H (60-115) mg/dL Lactic Acid (0.5-2.0) mmol/L Lactic Acid Fup @ 2Hr 5.5 H* (0.5-2.0) mmol/L Calcium 7.9 L D (8.4-10.2) mg/dL Magnesium 1.5 L (1.6-2.6) mg/dL Total Bilirubin 21.6 H (0.0-1.0) mg/dL Direct Bilirubin 16.0 H (0.0-0.5) mg/dL AST 245 H (5-37) U/L ALT 61 H (0-40) U/L Alkaline Phosphatase 246 H D (39-117) U/L Total Protein 5.9 L (6.5-8.0) g/dL Albumin 2.9 L D (3.5-5.0) g/dL Urine Protein 2+ H (NEG-TRACE) MG/DL Urine Glucose (UA) 500 H (NEG) MG/DL Urine Nitrite POS H (NEG) Ur Leukocyte Esterase TRACE H (NEG) Short CBC 07/10/21 Range/Units 12:04 WBC 4.2 L (4.8-10.8) X10*3/uL Hgb 11.2 L (14.0-18.0) g/dl Hct 32.4 L (42.0-52.0) % Plt Count 122 L (160-400) X10*3/uL BMP 07/10/21 12:04 Sodium 131 L Potassium 3.0 L D Chloride 90 L Carbon Dioxide 25 BUN 2 L Creatinine 0.55 Calcium 7.9 L D Liver Function 07/10/21 Range/Units 12:04 Total Bilirubin 21.6 H (0.0-1.0) mg/dL Direct Bilirubin 16.0 H (0.0-0.5) mg/dL AST 245 H (5-37) U/L ALT 61 H (0-40) U/L Alkaline Phosphatase 246 H D (39-117) U/L Albumin 2.9 L D (3.5-5.0) g/dL Urine 07/10/21 Range/Units 12:04 Urine Color BROWN Urine Appearance HAZY Urine pH 6.5 (5.0-8.0) Ur Specific [place] 1.025 (1.005-1.025) Urine Protein 2+ H (NEG-TRACE) MG/DL Urine Glucose (UA) 500 H (NEG) MG/DL All other labs normal. Imaging Abdomen CT scan report/results: image reviewed CT scan - pelvis: image reviewed Assessment and Plan (1) Alcoholic hepatitis: Status: Acute (2) Cholestatic jaundice: Status: Acute (3) Acalculous cholecystitis: Status: Acute 35-year-old male patient with chronic alcoholism presenting now with acute alcoholic hepatitis with markedly elevated direct bilirubins found on ultrasound to have a thickened gallbladder wall with biliary sludge and a sonographic Elizabeth sign. On examination the patient is markedly jaundice with scleral icterus. Abdomen is tender in the right upper quadrant with a positive Elizabeth sign. INR is mildly elevated. A HIDA scan and GI consultation is recommended. If the gallbladder is obstructed by HIDA scan, cholecystostomy may be the safest option given his current liver failure. I will follow along during his hospitalization. Procedures Date of Service Date of Service: 07/10/21
[2021-07-10 16:42] LABS: Reflex Lactate? 2 Y
[2021-07-10 18:13] VITALS: BP 129/77; PULSE 114; RESP 20; O2SAT 97
[2021-07-10 18:19] LABS: Glucose, Whole Blood 120 mg/dL (60-115)
[2021-07-10 18:29] LABS: ~Lactic Acid-LAB USE ONLY 5.4 mmol/L (0.5-2.0)
[2021-07-10] MEDS: PHENobarbitaL sodium 130 MG/ML VIAL 310 MG IM (19:01)
--- NOTE | 2021-07-10 19:02 | MHC.RECOVSUP ---
Met with Pt. Pt. states that he was doing fine for a few months. But started to isolate stop going to mtgs not keeping in touch with people in recovery.States that he has been drinking for awhile now Pt. has jaundice and is being treated for it. Gave information to Pt. Also I will follow up with him while he is in the hospital.
--- NOTE | 2021-07-10 19:03 | PM.GICN ---
History of Present Illness Data of Consult Service Date: 07/10/21 Requesting physician: Romy Dave Primary Care Provider: John Penny MD HPI Reason for consult: Abn LFT 35yo M with alcohol abuse, hx of pancreatitis, HTN and depression who I am seeing for assessment for abdominal pain and abn LFT> Patient has had recurrent bouts of binge drinking on and off complicated by alcoholic hepatitis. He comes to the hospital now after noticing worsening jaundice after drinking 750 ml of vodk daily for last 3 months due to Covid and being a loner. This was associated with gradually worsening RUQ pain 10/10 in severity with nausea and non bloody emesis. Appetite has been poor. He also noted increased abdominal distention as well as leg swelling. No hematemesis, hematochezia, or melena.? No diarrhea. Labs: Tbili of 21.6, AST 245, ALT 61.? Lactate was 6.1.? K was 3 and Mg 1.5.? Imaging: US:? diffuse liver disease and gallbladder wall thickening without any calculi; sonographic Elizabeth sign was present. HIDA ordered due to concern for acalculous cholecystitis Review of Systems Review of Systems: Constitutional: No Fever, No Chills ENT/Mouth: No sore throat, No Rhinorrhea, No Swallowing Difficulty Eyes: No Eye Pain, No Swelling, No Redness, +yellowing of the eyes Cardiovascular: No Chest Pain, No SOB, No Orthopnea, + Edema Respiratory: No Cough, No Sputum, No Wheezing, No dyspnea Gastrointestinal: + Nausea, + Vomiting, No Diarrhea, + abdominal Pain, No Hematochezia, No Melena Genitourinary: No Dysuria, No Urinary Frequency, No Hematuria Musculoskeletal: No joint pain, No Myalgias Skin: No Skin Lesions, No rash Neuro: No Weakness, No Numbness, No Dizziness, No Headache Psych: + Anxiety/Panic, + Depression Heme/Lymph: No Bruising, No Lymphadenopathy Endocrine: No Polyuria, No Polydipsia PMFSH Past Medical History Medical History Alcoholism Anxiety Depression Hypertension Hypertension with normal renal function Pancreatitis Type 2 diabetes mellitus Family History Family History Other HTN (hypertension) Social History Social History Household Members: None Household Members Other:: roomate Housing: Apartment Do you presently have visiting nurse or other home services: No Alcohol intake: current Alcohol intake frequency: 3 or more drinks per day Alcohol type: beer and hard liquor Patient Tobacco Use Status: Current everyday Tobacco user Cigarettes Per Day: 1 Second Hand Smoke Exposure: No Use of substances other than those prescribed or required for medical reasons: No Substance Use Type: Marijuana Advance Directives: No Advance Directives Information Provided: Yes service: No Current occupational status: employed Meds Allergies Allergy/AdvReac Type Severity Reaction Status Date / Time Iodinated Contrast Media Allergy Hives Verified 12/29/20 21:49 [Contrast Dye] Active Medications: Current Medications Amlodipine Besylate (Amlodipine Besylate 5 Mg Tablet) 5 mg PO DAILY [facility]; Protocol Dextrose (Dextrose 50 % 25 Gm/50 Ml Vial) 25 gm IVPUSH Q15M PRN; Protocol PRN Reason: per Hypoglycemia Standing Ord. Enoxaparin Sodium (Enoxaparin Sodium 40 Mg/0.4 Ml Syringe) 40 mg SUBCUT Q24H [facility] Last Admin: 07/10/21 19:00 Dose: Not Given Documented by: Escitalopram Oxalate (Escitalopram Oxalate 10 Mg Tablet) 10 mg PO DAILY [facility] Folic Acid (Folic Acid 1 Mg Tablet) 1 mg PO DAILY [facility] Last Admin: 07/10/21 18:54 Dose: Not Given Documented by: Glucose (Glucose Gel 15 Gm Gel..Gram.) 15 gm PO Q15M PRN; Protocol PRN Reason: per Hypoglycemia Standing Ord. Lactated Ringer's (Lr) 1,000 mls @ 125 mls/hr IVCONT .Q8H [facility] Insulin Human Lispro (Insulin Lispro 100 Unit/Ml 3 Ml Vial) 0 unit SUBCUT QIDACHS [facility]; Protocol Last Admin: 07/10/21 18:53 Dose: Not Given Documented by: Medication (No Benzodiazepines) 1 each MISCELLANE DAILY [facility] Multivitamins/Vitamin C (Multivitamin Tablet) 1 tab PO DAILY [facility] Last Admin: 07/10/21 18:55 Dose: Not Given Documented by: Omeprazole (Omeprazole 20 Mg Capsule.Dr) 20 mg PO DAILY@0630 PRN PRN Reason: gerd Ondansetron HCl (Ondansetron Hcl 4 Mg/2 Ml Vial) 4 mg IVPUSH Q8H PRN PRN Reason: Nausea and Vomiting Pentoxifylline (Pentoxifylline Er 400 Mg Tablet.Er) 400 mg PO TID [facility] Last Admin: 07/10/21 18:59 Dose: Not Given Documented by: Pharmacy Consult (Consult Rx Perform Med Rec) 1 each MISCELLANE ONCE PRN PRN Reason: Consult order Phenobarbital (Phenobarbital 30 Mg Tablet) 30 mg PO BID [facility]; Protocol Stop: 07/14/21 21:01 Phenobarbital (Phenobarbital 30 Mg Tablet) 60 mg PO BID [facility]; Protocol Stop: 07/12/21 21:01 Phenobarbital (Phenobarbital 30 Mg Tablet) 30 mg PO DAILY [facility]; Protocol Stop: 07/16/21 09:01 Phenobarbital Sodium (Phenobarbital Sodium 130 Mg/Ml Vial) 233 mg IM Q3H [facility]; Protocol Stop: 07/10/21 21:01 Sodium Chloride (0.9 % Sodium Chloride Flush 3 Ml Syringe) 3 ml IVFLUSH QSHIFT [facility] Last Admin: 07/10/21 19:00 Dose: Not Given Documented by: Thiamine HCl (Thiamine Hcl 100 Mg Tablet) 100 mg PO DAILY [facility] Last Admin: 07/10/21 18:55 Dose: Not Given Documented by: Home Medications Medication Instructions Recorded Confirmed Last Taken Type amlodipine 5 mg tablet 5 mg PO DAILY 09/04/20 07/10/21 07/10/21 History clonazepam 0.5 mg tablet 0.5 mg PO BID PRN 09/04/20 07/10/21 07/09/21 History escitalopram oxalate 10 mg tablet 10 mg PO DAILY 09/04/20 07/10/21 07/09/21 History gemfibrozil 600 mg tablet 600 mg PO BIDAC 09/04/20 07/10/21 09/04/20 History omeprazole 20 mg capsule,delayed 20 mg PO DAILY PRN 09/04/20 07/10/21 09/04/20 History release Physical Exam Vital Signs: Vital Signs: Last Vital Signs Temp 98.4 F 07/10/21 12:07 Pulse 114 H 07/10/21 18:13 Resp 20 07/10/21 18:13 BP 129/77 07/10/21 18:13 Pulse Ox 97 07/10/21 18:13 BMI result Body Mass Index 35.9 Const: General: cooperative, well developed, alert and ill appearing Nutritional Appearance: well nourished Orientation/consciousness: patient oriented x3 Limitations: no limitations HENMT: Head: Yes normocephalic and Yes atraumatic Ears: hearing grossly normal bilaterally Eyes: Sclerae: scleral abnormal (Scleral icterus) EOM: EOMs intact bilaterally Neck: Neck: Yes no lymphadenopathy Resp: Effort & Inspection: normal respiratory effort, no audible wheezes, no cough and no respiratory distress GI: Inspection: Yes normal to inspection Palpation (GI): Soft to palpation and Tenderness to palpation present (GI) in the epigastrum, in the RUQ and Elizabeth's sign positive Percussion: Yes normal to percussion Auscultation: normal bowel sounds Rectal Exam - Male: Yes deferred Skin: General skin exam: dry skin, no erythema and jaundice Neuro: General: patient oriented x3 Extrem: General: Yes normal to inspection and Yes no clubbing, cyanosis or edema Results Labs CBC & Chem 7: 07/10/21 12:04 07/10/21 12:04 Labs: Short CBC 07/10/21 Range/Units 12:04 WBC 4.2 L (4.8-10.8) X10*3/uL Hgb 11.2 L (14.0-18.0) g/dl Hct 32.4 L (42.0-52.0) % Plt Count 122 L (160-400) X10*3/uL BMP 07/10/21 12:04 Sodium 131 L Potassium 3.0 L D Chloride 90 L Carbon Dioxide 25 BUN 2 L Creatinine 0.55 Calcium 7.9 L D Liver Function 07/10/21 Range/Units 12:04 Total Bilirubin 21.6 H (0.0-1.0) mg/dL Direct Bilirubin 16.0 H (0.0-0.5) mg/dL AST 245 H (5-37) U/L ALT 61 H (0-40) U/L Alkaline Phosphatase 246 H D (39-117) U/L Albumin 2.9 L D (3.5-5.0) g/dL Urine 07/10/21 Range/Units 12:04 Urine Color BROWN Urine Appearance HAZY Urine pH 6.5 (5.0-8.0) Ur Specific [place] 1.025 (1.005-1.025) Urine Protein 2+ H (NEG-TRACE) MG/DL Urine Glucose (UA) 500 H (NEG) MG/DL Assessment and Plan (1) Alcoholic hepatitis: Status: Acute 1/ Abdominal pain with elevated LFT, suspect this is most likely acute alcoholic hepatitis, with contiguous inflammation of adjacent GB. Could also be thickening of GB from low albumin and malnutriton, sarcopenia. No ascites on US Maddrey score is 34 PLAN: 1/ Await HIDA, if neg then pred 40 mg with 7 d lille score 2/ ?High protein and calorie diet may be the most beneficial thing in breaking the inflammatory cycle- 1-1.5 g/kg protein and 30-40 kcal/kg body weight--good outcomes at 1 yr --also with steroids on board increased musc breakdown and catabolism 3/ check zinc level and replace if low, check iron level, b12, folic acid 4/ mutlivitamins and CIWA scoring 5/ hold diuretics for the meantime, maintain on low sodium diet, avoid nsaids 6/ serologies to exclude concomitant secondary causes of liver disease -I will order 7/ He may benefit from in patient psych eval ?In a randomised multicentre trial of severe AAH patients, Janie? et al compared short and long-term effects of steroids and total enteral nutrition via nasoduodenal tube (providing 2000 kcal/d for 4 wk). Although short-term mortality was no different, the study showed improved outcomes at 1 year follow-up for patients treated with total enteral nutrition (P = 0.04, [id number] analysis), with 8% one-year mortality reported in the enterally fed group, compared to 37% in the prednisolone-only group during the follow-up period, with most deaths attributed to sepsis Cabr? E,?Rodr?Minoo P,?Simeon?a J,?Fernanda SUSIE,?S?Chay?tobias VALENTIN,?Don?s A,?Christian M,?Yordan R,?Simran HIDALGO.?Short- and long-term outcome of severe alcohol-induced hepatitis treated with steroids or enteral nutrition: a multicenter randomized trial. Hepatology.?2000;32:36-42. Procedures Date of Service Date of Service: 07/10/21
--- NOTE | 2021-07-10 19:08 | MHC.RECOVSUP ---
? Reason for consult Supportive services o?? Current [id number] ? o?? Identified substance use concern ?Alcohol ?? Withdrawal ?? Support ? Intervention: o?? Community resources provided o?? Harm reduction discussion ? Plan: o?? Follow up tomorrow? o?? Patient to follow up with HF after discharge ? Additional information: ?
[2021-07-10] MEDS: Lactated Ringers 1,000 ML 125 ML IVCONT ×2 (20:04→23:29)
[2021-07-10 20:16] LABS: Gamma Glutamyl Transpeptidase 1952 U/L (11-51)
--- NOTE | 2021-07-10 20:49 | MHC.CM.PN ---
CM met with admitted patient with bed assignment pending. A&O x3. No IMM necessary. HCP on file. HCP/mother Mary Lo ([phone]) and #2 HCP/father Jaime Lo ([phone]). Pt works as a [employer] tech. Fully vaccinated with Moderna. Lives alone. Uses no DME or services. Pt agreeable to CARE team supports. Was sober for 3 months. Supportive family. D/C plan is home. Father to provide transportation home. CM to follow for d/c needs.
[2021-07-10] MEDS: PHENobarbitaL sodium 130 MG/ML VIAL 233 MG IM (22:11)
[2021-07-10 22:44] LABS: Glucose, Whole Blood 136 mg/dL (60-115)
[2021-07-10] MEDS: Pentoxifylline ER 400 MG TABLET.ER PO (23:25)
[2021-07-11] VITALS (9 sets, daily range): BP systolic 124–136; BP diastolic 71–89; PULSE 80–116; RESP 14–22; TEMP 36.6–37.9; O2SAT 92–98; BMI 34.7
[2021-07-11] MEDS: 0.9 % Sodium Chloride Flush 3 ML SYRINGE IVFLUSH ×2 (07:11→15:13)
[2021-07-11] MEDS: Lactated Ringers 1,000 ML 125 ML IVCONT ×3 (07:11→23:19)
--- NOTE | 2021-07-11 07:15 | PC.NURSE ---
pt alert sitting up and reporting upper abd pain/mostly on the right side,denies nausea, pt is very jaundice all over his body, sinus tach on the monitor, ranges from 116-106. respirations even and unlabored, pt denies headache no visible hand tremor at this time emptied 700ml of very dark bartolome/tea color urine
[2021-07-11 07:18] LABS: Glucose, Whole Blood 133 mg/dL (60-115)
[2021-07-11 08:39] LABS: Hematocrit 31.4 % (42.0-52.0); Hemoglobin 10.8 g/dl (14.0-18.0); Mean Corpuscular HGB Conc 34.4 g/dl (31.0-36.0); Mean Corpuscular Hemoglobin 35.8 pg (27.0-33.0); Mean Platelet Volume 9.9 fL (9.4-12.4); Platelet Count 112 X10*3/uL (160-400); Red Blood Count 3.02 X10*6/uL (4.60-5.80); White Blood Count 4.6 X10*3/uL (4.8-10.8)
[2021-07-11 08:54] LABS: INTERNATIONAL NORM RATIO 1.4 (0.9-1.1); Prothrombin Time 15.8 SEC (9.9-13.0)
[2021-07-11] MEDS: amLODIPine Besylate 5 MG TABLET PO (09:14)
[2021-07-11] MEDS: PHENobarbitaL 30 MG TABLET 60 MG PO ×2 (09:14→21:37)
[2021-07-11] MEDS: Escitalopram Oxalate 10 MG TABLET PO (09:15)
[2021-07-11] MEDS: Thiamine HCL 100 MG TABLET PO (09:15)
[2021-07-11] MEDS: Folic Acid 1 MG TABLET PO (09:15)
[2021-07-11] MEDS: Multivitamin TABLET 1 TAB PO (09:15)
[2021-07-11 09:18] LABS: Alanine Aminotransferase 53 U/L (0-40); Albumin Level 2.6 g/dL (3.5-5.0); Alkaline Phosphatase 225 U/L (39-117); Anion Gap 16 (12-20); Aspartate Amino Transferase 244 U/L (5-37); Bilirubin Direct 17.3 mg/dL (0.0-0.5); Bilirubin Total 22.7 mg/dL (0.0-1.0); Blood Urea Nitrogen 3 mg/dL (9-16); Calcium 7.4 mg/dL (8.4-10.2); Carbon Dioxide 24 mmol/L (22-29); Chloride 95 mmol/L (96-108); Creatinine Clr Calc Pharmacy 253.1; Estimated Glomerular Filt Rate > 60; Glucose Random 169 mg/dL (60-115); Magnesium 1.6 mg/dL (1.6-2.6); Potassium 3.3 mmol/L (3.3-5.1); Sodium 132 mmol/L (135-145); Total Protein 5.3 g/dL (6.5-8.0)
[2021-07-11] MEDS: Morphine Sulfate 2 MG/ML CARTRIDGE IM ×3 (09:21→23:19)
[2021-07-11 09:22] LABS: HBS Num1 9.77 mIU/mL (0-7.99); HBc Num1 0.13 S/CO (0.00-0.79); HBsAGNum1 0.24 S/CO (0.00-0.99); HIV AB/AG Nonreactive (Nonreactive); HIV Num 1 0.09 S/CO (0.00-0.99); Hepatitis B Core Antibody Nonreactive (Nonreactive); Hepatitis B Surface Antigen Negative (Negative); ~HepC Num1 0.33 S/CO (0.00-0.79); ~Hepatitis C Antibody Nonreactive (Nonreactive)
[2021-07-11] MEDS: Pentoxifylline ER 400 MG TABLET.ER PO ×3 (10:10→21:38)
[2021-07-11 10:56] LABS: HBS Num2 7.36 mIU/mL (0-7.99); HBS Num3 6.85 mIU/mL (0-7.99); ~Hepatitis B Surface Antibody NONREACTIVE (Nonreactive)
[2021-07-11 11:31] LABS: Glucose, Whole Blood 149 mg/dL (60-115)
--- NOTE | 2021-07-11 11:35 | PM.PNGS ---
Subjective Subjective Date of Service: 07/11/21 <Jaye Mendiola PA-C - Last Filed: 07/11/21 11:49> 07/11/21 <Bayron Pfeiffer MD - Last Filed: 07/11/21 13:20> Interval history: Continues to have RUQ pain. Worse now than upon admission. Has not received any analgesics. Now tolerating diet. <Jaye Mendiola PA-C - Last Filed: 07/11/21 11:49> Physical Exam Vital Signs: Vital Signs: Last Vital Signs Temp 99.0 F 07/11/21 11:22 Pulse 104 H 07/11/21 11:22 Resp 22 H 07/11/21 11:22 BP 126/72 07/11/21 11:22 Pulse Ox 93 07/11/21 11:22 BMI result Body Mass Index 35.9 <Jaye Mendiola PA-C - Last Filed: 07/11/21 11:49> Const: General: no acute distress, alert and other (uncomfortable appearing) <Jaye Mendiola PA-C - Last Filed: 07/11/21 11:49> Orientation/consciousness: patient oriented x3 <Jaye Mendiola PA-C - Last Filed: 07/11/21 11:49> Eyes: Sclerae: scleral abnormal (icteric) <Jaye Mendiola PA-C - Last Filed: 07/11/21 11:49> Resp: Effort & Inspection: normal respiratory effort <Jaye Mendiola PA-C - Last Filed: 07/11/21 11:49> GI: Inspection: Yes distended (round) <Jaye Mendiola PA-C - Last Filed: 07/11/21 11:49> Palpation (GI): Soft to palpation and Tenderness to palpation present (GI) in the RUQ <Jaye Mendiola PA-C - Last Filed: 07/11/21 11:49> Skin: Other: jaundice <Jaye Mendiola PA-C - Last Filed: 07/11/21 11:49> General skin exam: no rashes or lesions noted <Jaye Mendiola PA-C - Last Filed: 07/11/21 11:49> Neuro: General: patient oriented x3 <Jaye Mendiola PA-C - Last Filed: 07/11/21 11:49> Objective Data Active Medications Amlodipine Besylate (Amlodipine Besylate 5 Mg Tablet) 5 mg PO DAILY [facility]; Protocol Last Admin: 07/11/21 09:14 Dose: 5 mg Documented by: ANTONIO Dextrose (Dextrose 50 % 25 Gm/50 Ml Vial) 25 gm IVPUSH Q15M PRN; Protocol PRN Reason: per Hypoglycemia Standing Ord. Enoxaparin Sodium (Enoxaparin Sodium 40 Mg/0.4 Ml Syringe) 40 mg SUBCUT Q24H [facility] Last Admin: 07/10/21 19:00 Dose: Not Given Documented by: AMANDA Non-Admin Reason: Not In Room Escitalopram Oxalate (Escitalopram Oxalate 10 Mg Tablet) 10 mg PO DAILY [facility] Last Admin: 07/11/21 09:15 Dose: 10 mg Documented by: ANTONIO Folic Acid (Folic Acid 1 Mg Tablet) 1 mg PO DAILY [facility] Last Admin: 07/11/21 09:15 Dose: 1 mg Documented by: ANTONIO Glucose (Glucose Gel 15 Gm Gel..Gram.) 15 gm PO Q15M PRN; Protocol PRN Reason: per Hypoglycemia Standing Ord. Lactated Ringer's (Lr) 1,000 mls @ 125 mls/hr IVCONT .Q8H [facility] Last Admin: 07/11/21 07:11 Dose: 125 mls/hr Documented by: ANTONIO Insulin Human Lispro (Insulin Lispro 100 Unit/Ml 3 Ml Vial) 0 unit SUBCUT QIDACHS [facility]; Protocol Last Admin: 07/11/21 07:12 Dose: Not Given Documented by: ANTONIO Non-Admin Reason: poc 133 Medication (No Benzodiazepines) 1 each MISCELLANE DAILY [facility] Morphine Sulfate (Morphine Sulfate 2 Mg/Ml Cartridge) 2 mg IM Q2H PRN; Protocol PRN Reason: severe pain Last Admin: 07/11/21 09:21 Dose: 2 mg Documented by: ANTONIO Multivitamins/Vitamin C (Multivitamin Tablet) 1 tab PO DAILY [facility] Last Admin: 07/11/21 09:15 Dose: 1 tab Documented by: ANTONIO Omeprazole (Omeprazole 20 Mg Capsule.Dr) 20 mg PO DAILY@0630 PRN PRN Reason: gerd Ondansetron HCl (Ondansetron Hcl 4 Mg/2 Ml Vial) 4 mg IVPUSH Q8H PRN PRN Reason: Nausea and Vomiting Oxycodone HCl (Oxycodone Hcl Immed Release 5 Mg Tablet) 5 mg PO Q4H PRN PRN Reason: moderate pain Pentoxifylline (Pentoxifylline Er 400 Mg Tablet.Er) 400 mg PO TID [facility] Last Admin: 07/11/21 10:10 Dose: 400 mg Documented by: ANTONIO Pharmacy Consult (Consult Rx Perform Med Rec) 1 each MISCELLANE ONCE PRN PRN Reason: Consult order Phenobarbital (Phenobarbital 30 Mg Tablet) 30 mg PO BID [facility]; Protocol Stop: 07/14/21 21:01 Phenobarbital (Phenobarbital 30 Mg Tablet) 60 mg PO BID [facility]; Protocol Stop: 07/12/21 21:01 Last Admin: 07/11/21 09:14 Dose: 60 mg Documented by: ANTONIO Phenobarbital (Phenobarbital 30 Mg Tablet) 30 mg PO DAILY [facility]; Protocol Stop: 07/16/21 09:01 Sodium Chloride (0.9 % Sodium Chloride Flush 3 Ml Syringe) 3 ml IVFLUSH QSHIFT [facility] Last Admin: 07/11/21 07:11 Dose: 3 ml Documented by: ANTONIO Thiamine HCl (Thiamine Hcl 100 Mg Tablet) 100 mg PO DAILY [facility] Last Admin: 07/11/21 09:15 Dose: 100 mg Documented by: ANTONIO <Jaye Mendiola PA-C - Last Filed: 07/11/21 11:49> Labs CBC & Chem 7: : 07/11/21 07:51 07/11/21 07:51 <Jaye Mendiola PA-C - Last Filed: 07/11/21 11:49> Labs: Laboratory Results - last 24 hr 07/10/21 07/10/21 07/10/21 11:59 12:04 12:04 MCV 101.3 H MCH 35.0 H MCHC 34.6 RDW 16.0 Plt Count 122 L MPV 9.5 Immature Gran % (Auto) 0.5 H Neut % (Auto) 57.5 Lymph % (Auto) 24.6 [place] % (Auto) 15.7 H Eos % (Auto) 0.7 Baso % (Auto) 1.0 Lymph # (Auto) 1.0 L [place] # (Auto) 0.7 Eos # (Auto) 0.0 Baso # (Auto) 0.0 Abs Immat Gran (auto) 0.02 Absolute Neuts (auto) 2.4 Absolute Nucleated RBC 0.000 Nucleated RBC % (auto) 0.0 PT 15.7 H INR 1.4 H APTT 44.5 H Anion Gap Estim Creat Clear Calc Estimated GFR POC Glucose Random Glucose Estimat Average Glucose Hemoglobin A1c % Lactic Acid 6.1 H* Lactic Acid Fup @ 2Hr Lactic Acid Fup @ 4Hr Calcium Magnesium Total Bilirubin Direct Bilirubin GGT AST ALT Alkaline Phosphatase Ammonia Total Protein Albumin Lipase Vitamin B12 Folate Urine Color Urine Appearance Urine pH Ur Specific [place] Urine Protein Urine Glucose (UA) Urine Ketones Urine Blood Urine Nitrite Ur Leukocyte Esterase Urine RBC Urine WBC Ur Squamous Epith Cells Urine Bacteria Urine Mucus Urine Opiates Screen Urine Fentanyl Screen Ur Barbiturates Screen Ur Phencyclidine Scrn Ur Amphetamines Screen U Benzodiazepines Scrn Urine Cocaine Screen U Marijuana (THC) Screen Ethyl Alcohol COVID-19 ([facility]) COVID-19 Clin Com Hep Bs Antigen Hep Bs Antibody Hep B Core Total Ab Hepatitis C Ab (EIA) HIV 1&2 Ab/P24 Ag 4thGn 07/10/21 07/10/21 07/10/21 12:04 12:04 12:04 MCV MCH MCHC RDW Plt Count MPV Immature Gran % (Auto) Neut % (Auto) Lymph % (Auto) [place] % (Auto) Eos % (Auto) Baso % (Auto) Lymph # (Auto) [place] # (Auto) Eos # (Auto) Baso # (Auto) Abs Immat Gran (auto) Absolute Neuts (auto) Absolute Nucleated RBC Nucleated RBC % (auto) PT INR APTT Anion Gap 19 Estim Creat Clear Calc 248.5 Estimated GFR > 60 POC Glucose Random Glucose 224 H Estimat Average Glucose Hemoglobin A1c % Lactic Acid Lactic Acid Fup @ 2Hr Lactic Acid Fup @ 4Hr Calcium 7.9 L D Magnesium 1.5 L Total Bilirubin 21.6 H Direct Bilirubin 16.0 H GGT AST 245 H ALT 61 H Alkaline Phosphatase 246 H D Ammonia 51 Total Protein 5.9 L Albumin 2.9 L D Lipase 24 Vitamin B12 Folate Urine Color Urine Appearance Urine pH Ur Specific [place] Urine Protein Urine Glucose (UA) Urine Ketones Urine Blood Urine Nitrite Ur Leukocyte Esterase Urine RBC Urine WBC Ur Squamous Epith Cells Urine Bacteria Urine Mucus Urine Opiates Screen Urine Fentanyl Screen Ur Barbiturates Screen Ur Phencyclidine Scrn Ur Amphetamines Screen U Benzodiazepines Scrn Urine Cocaine Screen U Marijuana (THC) Screen Ethyl Alcohol COVID-19 ([facility]) Negative COVID-19 Clin Com See Note Hep Bs Antigen Hep Bs Antibody Hep B Core Total Ab Hepatitis C Ab (EIA) HIV 1&2 Ab/P24 Ag 4thGn 07/10/21 07/10/21 07/10/21 12:04 12:04 12:04 MCV MCH MCHC RDW Plt Count MPV Immature Gran % (Auto) Neut % (Auto) Lymph % (Auto) [place] % (Auto) Eos % (Auto) Baso % (Auto) Lymph # (Auto) [place] # (Auto) Eos # (Auto) Baso # (Auto) Abs Immat Gran (auto) Absolute Neuts (auto) Absolute Nucleated RBC Nucleated RBC % (auto) PT INR APTT Anion Gap Estim Creat Clear Calc Estimated GFR POC Glucose Random Glucose Estimat Average Glucose Hemoglobin A1c % Lactic Acid Lactic Acid Fup @ 2Hr Lactic Acid Fup @ 4Hr Calcium Magnesium Total Bilirubin Direct Bilirubin GGT AST ALT Alkaline Phosphatase Ammonia Total Protein Albumin Lipase Vitamin B12 Folate Urine Color BROWN Urine Appearance HAZY Urine pH 6.5 Ur Specific [place] 1.025 Urine Protein 2+ H Urine Glucose (UA) 500 H Urine Ketones 15 Urine Blood NEG Urine Nitrite POS H Ur Leukocyte Esterase TRACE H Urine RBC 0 Urine WBC 0-2 Ur Squamous Epith Cells 1+ Urine Bacteria 1+ Urine Mucus 1+ Urine Opiates Screen Not Detected Urine Fentanyl Screen Not Detected Ur Barbiturates Screen Not Detected Ur Phencyclidine Scrn Not Detected Ur Amphetamines Screen Not Detected U Benzodiazepines Scrn Not Detected Urine Cocaine Screen Not Detected U Marijuana (THC) Screen Not Detected Ethyl Alcohol 49 COVID-19 ([facility]) COVID-19 Clin Com Hep Bs Antigen Hep Bs Antibody Hep B Core Total Ab Hepatitis C Ab (EIA) HIV 1&2 Ab/P24 Ag 4thGn 07/10/21 07/10/21 07/10/21 12:04 12:04 14:34 MCV MCH MCHC RDW Plt Count MPV Immature Gran % (Auto) Neut % (Auto) Lymph % (Auto) [place] % (Auto) Eos % (Auto) Baso % (Auto) Lymph # (Auto) [place] # (Auto) Eos # (Auto) Baso # (Auto) Abs Immat Gran (auto) Absolute Neuts (auto) Absolute Nucleated RBC Nucleated RBC % (auto) PT INR APTT Anion Gap Estim Creat Clear Calc Estimated GFR POC Glucose Random Glucose Estimat Average Glucose 217 Hemoglobin A1c % 9.2 Lactic Acid Lactic Acid Fup @ 2Hr 5.5 H* Lactic Acid Fup @ 4Hr Calcium Magnesium Total Bilirubin Direct Bilirubin GGT AST ALT Alkaline Phosphatase Ammonia Total Protein Albumin Lipase Vitamin B12 586 Folate 4.0 Urine Color Urine Appearance Urine pH Ur Specific [place] Urine Protein Urine Glucose (UA) Urine Ketones Urine Blood Urine Nitrite Ur Leukocyte Esterase Urine RBC Urine WBC Ur Squamous Epith Cells Urine Bacteria Urine Mucus Urine Opiates Screen Urine Fentanyl Screen Ur Barbiturates Screen Ur Phencyclidine Scrn Ur Amphetamines Screen U Benzodiazepines Scrn Urine Cocaine Screen U Marijuana (THC) Screen Ethyl Alcohol COVID-19 ([facility]) COVID-19 Clin Com Hep Bs Antigen Hep Bs Antibody Hep B Core Total Ab Hepatitis C Ab (EIA) HIV 1&2 Ab/P24 Ag 4thGn 07/10/21 07/10/21 07/10/21 18:08 18:15 19:49 MCV MCH MCHC RDW Plt Count MPV Immature Gran % (Auto) Neut % (Auto) Lymph % (Auto) [place] % (Auto) Eos % (Auto) Baso % (Auto) Lymph # (Auto) [place] # (Auto) Eos # (Auto) Baso # (Auto) Abs Immat Gran (auto) Absolute Neuts (auto) Absolute Nucleated RBC Nucleated RBC % (auto) PT INR APTT Anion Gap Estim Creat Clear Calc Estimated GFR POC Glucose 120 H Random Glucose Estimat Average Glucose Hemoglobin A1c % Lactic Acid Lactic Acid Fup @ 2Hr Lactic Acid Fup @ 4Hr 5.4 H* Calcium Magnesium Total Bilirubin Direct Bilirubin GGT 1952 H AST ALT Alkaline Phosphatase Ammonia Total Protein Albumin Lipase Vitamin B12 Folate Urine Color Urine Appearance Urine pH Ur Specific [place] Urine Protein Urine Glucose (UA) Urine Ketones Urine Blood Urine Nitrite Ur Leukocyte Esterase Urine RBC Urine WBC Ur Squamous Epith Cells Urine Bacteria Urine Mucus Urine Opiates Screen Urine Fentanyl Screen Ur Barbiturates Screen Ur Phencyclidine Scrn Ur Amphetamines Screen U Benzodiazepines Scrn Urine Cocaine Screen U Marijuana (THC) Screen Ethyl Alcohol COVID-19 ([facility]) COVID-19 Clin Com Hep Bs Antigen Hep Bs Antibody Hep B Core Total Ab Hepatitis C Ab (EIA) HIV 1&2 Ab/P24 Ag 4thGn 07/10/21 07/11/21 07/11/21 22:39 07:07 07:51 MCV MCH MCHC RDW Plt Count MPV Immature Gran % (Auto) Neut % (Auto) Lymph % (Auto) [place] % (Auto) Eos % (Auto) Baso % (Auto) Lymph # (Auto) [place] # (Auto) Eos # (Auto) Baso # (Auto) Abs Immat Gran (auto) Absolute Neuts (auto) Absolute Nucleated RBC Nucleated RBC % (auto) PT 15.8 H INR 1.4 H APTT Anion Gap Estim Creat Clear Calc Estimated GFR POC Glucose 136 H 133 H Random Glucose Estimat Average Glucose Hemoglobin A1c % Lactic Acid Lactic Acid Fup @ 2Hr Lactic Acid Fup @ 4Hr Calcium Magnesium Total Bilirubin Direct Bilirubin GGT AST ALT Alkaline Phosphatase Ammonia Total Protein Albumin Lipase Vitamin B12 Folate Urine Color Urine Appearance Urine pH Ur Specific [place] Urine Protein Urine Glucose (UA) Urine Ketones Urine Blood Urine Nitrite Ur Leukocyte Esterase Urine RBC Urine WBC Ur Squamous Epith Cells Urine Bacteria Urine Mucus Urine Opiates Screen Urine Fentanyl Screen Ur Barbiturates Screen Ur Phencyclidine Scrn Ur Amphetamines Screen U Benzodiazepines Scrn Urine Cocaine Screen U Marijuana (THC) Screen Ethyl Alcohol COVID-19 ([facility]) COVID-19 Clin Com Hep Bs Antigen Hep Bs Antibody Hep B Core Total Ab Hepatitis C Ab (EIA) HIV 1&2 Ab/P24 Ag 4thGn 07/11/21 07/11/21 07/11/21 07:51 07:51 07:51 MCV 104.0 H MCH 35.8 H MCHC 34.4 RDW 17.0 H Plt Count 112 L MPV 9.9 Immature Gran % (Auto) Neut % (Auto) Lymph % (Auto) [place] % (Auto) Eos % (Auto) Baso % (Auto) Lymph # (Auto) [place] # (Auto) Eos # (Auto) Baso # (Auto) Abs Immat Gran (auto) Absolute Neuts (auto) Absolute Nucleated RBC 0.000 Nucleated RBC % (auto) 0.0 PT INR APTT Anion Gap 16 Estim Creat Clear Calc 253.1 Estimated GFR > 60 POC Glucose Random Glucose 169 H Estimat Average Glucose Hemoglobin A1c % Lactic Acid Lactic Acid Fup @ 2Hr Lactic Acid Fup @ 4Hr Calcium 7.4 L D Magnesium 1.6 Total Bilirubin 22.7 H Direct Bilirubin 17.3 H GGT AST 244 H ALT 53 H Alkaline Phosphatase 225 H Ammonia Total Protein 5.3 L Albumin 2.6 L Lipase Vitamin B12 Folate Urine Color Urine Appearance Urine pH Ur Specific [place] Urine Protein Urine Glucose (UA) Urine Ketones Urine Blood Urine Nitrite Ur Leukocyte Esterase Urine RBC Urine WBC Ur Squamous Epith Cells Urine Bacteria Urine Mucus Urine Opiates Screen Urine Fentanyl Screen Ur Barbiturates Screen Ur Phencyclidine Scrn Ur Amphetamines Screen U Benzodiazepines Scrn Urine Cocaine Screen U Marijuana (THC) Screen Ethyl Alcohol COVID-19 ([facility]) COVID-19 Clin Com Hep Bs Antigen Negative Hep Bs Antibody NONREACTIVE Hep B Core Total Ab Nonreactive Hepatitis C Ab (EIA) Nonreactive HIV 1&2 Ab/P24 Ag 4thGn Nonreactive 07/11/21 11:27 MCV MCH MCHC RDW Plt Count MPV Immature Gran % (Auto) Neut % (Auto) Lymph % (Auto) [place] % (Auto) Eos % (Auto) Baso % (Auto) Lymph # (Auto) [place] # (Auto) Eos # (Auto) Baso # (Auto) Abs Immat Gran (auto) Absolute Neuts (auto) Absolute Nucleated RBC Nucleated RBC % (auto) PT INR APTT Anion Gap Estim Creat Clear Calc Estimated GFR POC Glucose 149 H Random Glucose Estimat Average Glucose Hemoglobin A1c % Lactic Acid Lactic Acid Fup @ 2Hr Lactic Acid Fup @ 4Hr Calcium Magnesium Total Bilirubin Direct Bilirubin GGT AST ALT Alkaline Phosphatase Ammonia Total Protein Albumin Lipase Vitamin B12 Folate Urine Color Urine Appearance Urine pH Ur Specific [place] Urine Protein Urine Glucose (UA) Urine Ketones Urine Blood Urine Nitrite Ur Leukocyte Esterase Urine RBC Urine WBC Ur Squamous Epith Cells Urine Bacteria Urine Mucus Urine Opiates Screen Urine Fentanyl Screen Ur Barbiturates Screen Ur Phencyclidine Scrn Ur Amphetamines Screen U Benzodiazepines Scrn Urine Cocaine Screen U Marijuana (THC) Screen Ethyl Alcohol COVID-19 ([facility]) COVID-19 Clin Com Hep Bs Antigen Hep Bs Antibody Hep B Core Total Ab Hepatitis C Ab (EIA) HIV 1&2 Ab/P24 Ag 4thGn <Jaye Mendiola PA-C - Last Filed: 07/11/21 11:49> Microbiology Microbiology Results: Microbiology 07/10/21 Unknown Urine Culture - Final Urine clean catch - Urine marx top No growth. <Jaye Mendiola PA-C - Last Filed: 07/11/21 11:49> Procedures Date of Service Date of Service: 07/11/21 <Jaye Mendiola PA-C - Last Filed: 07/11/21 11:49> Progress Note: A&P Assessment and plan (1) Alcoholic hepatitis: Status: Acute <Jaye Mendiola PA-C - Last Filed: 07/11/21 11:49> Assessment and Plan: 35-year-old male patient with chronic alcoholism presenting now with acute alcoholic hepatitis with markedly elevated direct bilirubins found on ultrasound to have a thickened gallbladder wall with biliary sludge and a sonographic Elizabeth sign. HIDA scan performed yesterday which was inconclusive. He continues to have RUQ pain. Bilirubin remains significantly elevated. GB wall thickening likely edema from hepatitis. Recommend obtaining MRI to further evaluate for cholecystitis if continued concern if no improvement with supportive treatment of alcoholic hepatitis. <Jaye Mendiola PA-C - Last Filed: 07/11/21 11:49> 35-year-old male patient with chronic alcoholism presenting now with acute alcoholic hepatitis with markedly elevated direct bilirubins found on ultrasound to have a thickened gallbladder wall with biliary sludge and a sonographic Elizabeth sign. HIDA scan performed yesterday which was inconclusive. He continues to have RUQ pain. Bilirubin remains significantly elevated. GB wall thickening likely edema from hepatitis. Recommend obtaining MRI to further evaluate for cholecystitis if continued concern if no improvement with supportive treatment of alcoholic hepatitis. Agree with the above assessment and plan. Patient continues to have abdominal pain mainly in the epigastrium and right upper quadrant. Bilirubin is markedly elevated. WBC normal. HIDA scan was not diagnostic. Discussed with Dr. Brizuela. MRCP recommended. Symptoms appear related to liver disease rather than the gallbladder. <Bayron Pfeiffer MD - Last Filed: 07/11/21 13:20> Fall Risk Details Current Medications: Current Medications Amlodipine Besylate (Amlodipine Besylate 5 Mg Tablet) 5 mg PO DAILY [facility]; Protocol Last Admin: 07/11/21 09:14 Dose: 5 mg Documented by: Dextrose (Dextrose 50 % 25 Gm/50 Ml Vial) 25 gm IVPUSH Q15M PRN; Protocol PRN Reason: per Hypoglycemia Standing Ord. Enoxaparin Sodium (Enoxaparin Sodium 40 Mg/0.4 Ml Syringe) 40 mg SUBCUT Q24H [facility] Last Admin: 07/10/21 19:00 Dose: Not Given Documented by: Escitalopram Oxalate (Escitalopram Oxalate 10 Mg Tablet) 10 mg PO DAILY [facility] Last Admin: 07/11/21 09:15 Dose: 10 mg Documented by: Folic Acid (Folic Acid 1 Mg Tablet) 1 mg PO DAILY [facility] Last Admin: 07/11/21 09:15 Dose: 1 mg Documented by: Glucose (Glucose Gel 15 Gm Gel..Gram.) 15 gm PO Q15M PRN; Protocol PRN Reason: per Hypoglycemia Standing Ord. Lactated Ringer's (Lr) 1,000 mls @ 125 mls/hr IVCONT .Q8H [facility] Last Admin: 07/11/21 07:11 Dose: 125 mls/hr Documented by: Insulin Human Lispro (Insulin Lispro 100 Unit/Ml 3 Ml Vial) 0 unit SUBCUT QIDACHS [facility]; Protocol Last Admin: 07/11/21 07:12 Dose: Not Given Documented by: Medication (No Benzodiazepines) 1 each MISCELLANE DAILY [facility] Morphine Sulfate (Morphine Sulfate 2 Mg/Ml Cartridge) 2 mg IM Q2H PRN; Protocol PRN Reason: severe pain Last Admin: 07/11/21 09:21 Dose: 2 mg Documented by: Multivitamins/Vitamin C (Multivitamin Tablet) 1 tab PO DAILY [facility] Last Admin: 07/11/21 09:15 Dose: 1 tab Documented by: Omeprazole (Omeprazole 20 Mg Capsule.Dr) 20 mg PO DAILY@0630 PRN PRN Reason: gerd Ondansetron HCl (Ondansetron Hcl 4 Mg/2 Ml Vial) 4 mg IVPUSH Q8H PRN PRN Reason: Nausea and Vomiting Oxycodone HCl (Oxycodone Hcl Immed Release 5 Mg Tablet) 5 mg PO Q4H PRN PRN Reason: moderate pain Pentoxifylline (Pentoxifylline Er 400 Mg Tablet.Er) 400 mg PO TID [facility] Last Admin: 07/11/21 10:10 Dose: 400 mg Documented by: Pharmacy Consult (Consult Rx Perform Med Rec) 1 each MISCELLANE ONCE PRN PRN Reason: Consult order Phenobarbital (Phenobarbital 30 Mg Tablet) 30 mg PO BID [facility]; Protocol Stop: 07/14/21 21:01 Phenobarbital (Phenobarbital 30 Mg Tablet) 60 mg PO BID [facility]; Protocol Stop: 07/12/21 21:01 Last Admin: 07/11/21 09:14 Dose: 60 mg Documented by: Phenobarbital (Phenobarbital 30 Mg Tablet) 30 mg PO DAILY [facility]; Protocol Stop: 07/16/21 09:01 Sodium Chloride (0.9 % Sodium Chloride Flush 3 Ml Syringe) 3 ml IVFLUSH QSHIFT [facility] Last Admin: 07/11/21 07:11 Dose: 3 ml Documented by: Thiamine HCl (Thiamine Hcl 100 Mg Tablet) 100 mg PO DAILY [facility] Last Admin: 07/11/21 09:15 Dose: 100 mg Documented by: <Jaye Mendiola PA-C - Last Filed: 07/11/21 11:49> Time Spent With Patient Time: Total time spent is greater than 50% in coordination of care (as documented) at patient's floor/unit and/or counseling patient: <Jaye Mendiola PA-C - Last Filed: 07/11/21 11:49> Time with patient: 15 - 24 minutes <Jaye Mendiola PA-C - Last Filed: 07/11/21 11:49> Quality Stroke Does the patient have a stroke diagnosis?: No <Jaye Mendiola PA-C - Last Filed: 07/11/21 11:49> VTE Prior VTE?: No <Jaye Mendiola PA-C - Last Filed: 07/11/21 11:49> VTE Risk Level:: Medical - moderate - high <TORRES Weiss Last Filed: 07/11/21 11:49> VTE Device Contraindication: N/A - Device Ordered <Jaye Mendiola PA-C - Last Filed: 07/11/21 11:49> VTE Drug Contraindication: N/A - Med Ordered <Jaye Mendiola PA-C - Last Filed: 07/11/21 11:49>
--- NOTE | 2021-07-11 12:54 | P.PNIM_ITS ---
Subjective Subjective Date of Service: 07/11/21 Interval History: RUQ pain improved Jaundiced No hematemesis, hematochezia, or melena Review of Systems Review of Systems: Yes all other systems are reviewed and are negative Physical Exam Vital Signs: Vital Signs: Last Vital Signs Temp 99.0 F 07/11/21 11:22 Pulse 104 H 07/11/21 11:22 Resp 22 H 07/11/21 11:22 BP 126/72 07/11/21 11:22 Pulse Ox 93 07/11/21 11:22 BMI result Body Mass Index 35.9 Gen: NAD HEENT: sclera icteric, moist mucus membranes Neck: supple Lungs: clear to auscultation bilaterally Heart: tachycardic, no murmurs Abd: soft, RUQ tender without rebound, non-distended Ext: no edema Skin: warm/well-perfused Neuro: alert and oriented x3, no focal findings, no asterixis Psych: appropriate affect Objective Data Active Medications Amlodipine Besylate (Amlodipine Besylate 5 Mg Tablet) 5 mg PO DAILY [facility]; Protocol Last Admin: 07/11/21 09:14 Dose: 5 mg Documented by: ANTONIO Dextrose (Dextrose 50 % 25 Gm/50 Ml Vial) 25 gm IVPUSH Q15M PRN; Protocol PRN Reason: per Hypoglycemia Standing Ord. Enoxaparin Sodium (Enoxaparin Sodium 40 Mg/0.4 Ml Syringe) 40 mg SUBCUT Q24H [facility] Last Admin: 07/10/21 19:00 Dose: Not Given Documented by: AMANDA Non-Admin Reason: Not In Room Escitalopram Oxalate (Escitalopram Oxalate 10 Mg Tablet) 10 mg PO DAILY [facility] Last Admin: 07/11/21 09:15 Dose: 10 mg Documented by: ANTONIO Folic Acid (Folic Acid 1 Mg Tablet) 1 mg PO DAILY [facility] Last Admin: 07/11/21 09:15 Dose: 1 mg Documented by: ANTONIO Glucose (Glucose Gel 15 Gm Gel..Gram.) 15 gm PO Q15M PRN; Protocol PRN Reason: per Hypoglycemia Standing Ord. Lactated Ringer's (Lr) 1,000 mls @ 125 mls/hr IVCONT .Q8H [facility] Last Admin: 07/11/21 07:11 Dose: 125 mls/hr Documented by: ANTONIO Insulin Human Lispro (Insulin Lispro 100 Unit/Ml 3 Ml Vial) 0 unit SUBCUT QIDACHS [facility]; Protocol Last Admin: 07/11/21 12:12 Dose: Not Given Documented by: BRYANT Non-Admin Reason: See Note Medication (No Benzodiazepines) 1 each MISCELLANE DAILY [facility] Morphine Sulfate (Morphine Sulfate 2 Mg/Ml Cartridge) 2 mg IM Q2H PRN; Protocol PRN Reason: severe pain Last Admin: 07/11/21 09:21 Dose: 2 mg Documented by: ANTONIO Multivitamins/Vitamin C (Multivitamin Tablet) 1 tab PO DAILY [facility] Last Admin: 07/11/21 09:15 Dose: 1 tab Documented by: ANTONIO Omeprazole (Omeprazole 20 Mg Capsule.Dr) 20 mg PO DAILY@0630 PRN PRN Reason: gerd Ondansetron HCl (Ondansetron Hcl 4 Mg/2 Ml Vial) 4 mg IVPUSH Q8H PRN PRN Reason: Nausea and Vomiting Oxycodone HCl (Oxycodone Hcl Immed Release 5 Mg Tablet) 5 mg PO Q4H PRN PRN Reason: moderate pain Pentoxifylline (Pentoxifylline Er 400 Mg Tablet.Er) 400 mg PO TID [facility] Last Admin: 07/11/21 10:10 Dose: 400 mg Documented by: ANTONIO Pharmacy Consult (Consult Rx Perform Med Rec) 1 each MISCELLANE ONCE PRN PRN Reason: Consult order Phenobarbital (Phenobarbital 30 Mg Tablet) 30 mg PO BID [facility]; Protocol Stop: 07/14/21 21:01 Phenobarbital (Phenobarbital 30 Mg Tablet) 60 mg PO BID [facility]; Protocol Stop: 07/12/21 21:01 Last Admin: 07/11/21 09:14 Dose: 60 mg Documented by: ANTONIO Phenobarbital (Phenobarbital 30 Mg Tablet) 30 mg PO DAILY [facility]; Protocol Stop: 07/16/21 09:01 Sodium Chloride (0.9 % Sodium Chloride Flush 3 Ml Syringe) 3 ml IVFLUSH QSHIFT [facility] Last Admin: 07/11/21 07:11 Dose: 3 ml Documented by: ANTONIO Thiamine HCl (Thiamine Hcl 100 Mg Tablet) 100 mg PO DAILY [facility] Last Admin: 07/11/21 09:15 Dose: 100 mg Documented by: ANTONIO Labs CBC & Chem 7: 07/11/21 07:51 07/11/21 07:51 Labs: Laboratory Results - last 24 hr 07/10/21 07/10/21 07/10/21 12:04 12:04 12:04 MCV MCH MCHC RDW Plt Count MPV Absolute Nucleated RBC Nucleated RBC % (auto) PT INR Anion Gap Estim Creat Clear Calc Estimated GFR POC Glucose Random Glucose Estimat Average Glucose 217 Hemoglobin A1c % 9.2 Lactic Acid Fup @ 2Hr Lactic Acid Fup @ 4Hr Calcium Magnesium Total Bilirubin Direct Bilirubin 16.0 H GGT AST ALT Alkaline Phosphatase Total Protein Albumin Vitamin B12 586 Folate 4.0 Hep Bs Antigen Hep Bs Antibody Hep B Core Total Ab Hepatitis C Ab (EIA) HIV 1&2 Ab/P24 Ag 4thGn 07/10/21 07/10/21 07/10/21 14:34 18:08 18:15 MCV MCH MCHC RDW Plt Count MPV Absolute Nucleated RBC Nucleated RBC % (auto) PT INR Anion Gap Estim Creat Clear Calc Estimated GFR POC Glucose 120 H Random Glucose Estimat Average Glucose Hemoglobin A1c % Lactic Acid Fup @ 2Hr 5.5 H* Lactic Acid Fup @ 4Hr 5.4 H* Calcium Magnesium Total Bilirubin Direct Bilirubin GGT AST ALT Alkaline Phosphatase Total Protein Albumin Vitamin B12 Folate Hep Bs Antigen Hep Bs Antibody Hep B Core Total Ab Hepatitis C Ab (EIA) HIV 1&2 Ab/P24 Ag 4thGn 07/10/21 07/10/21 07/11/21 19:49 22:39 07:07 MCV MCH MCHC RDW Plt Count MPV Absolute Nucleated RBC Nucleated RBC % (auto) PT INR Anion Gap Estim Creat Clear Calc Estimated GFR POC Glucose 136 H 133 H Random Glucose Estimat Average Glucose Hemoglobin A1c % Lactic Acid Fup @ 2Hr Lactic Acid Fup @ 4Hr Calcium Magnesium Total Bilirubin Direct Bilirubin GGT 1952 H AST ALT Alkaline Phosphatase Total Protein Albumin Vitamin B12 Folate Hep Bs Antigen Hep Bs Antibody Hep B Core Total Ab Hepatitis C Ab (EIA) HIV 1&2 Ab/P24 Ag 4thGn 07/11/21 07/11/21 07/11/21 07:51 07:51 07:51 MCV MCH MCHC RDW Plt Count MPV Absolute Nucleated RBC Nucleated RBC % (auto) PT 15.8 H INR 1.4 H Anion Gap 16 Estim Creat Clear Calc 253.1 Estimated GFR > 60 POC Glucose Random Glucose 169 H Estimat Average Glucose Hemoglobin A1c % Lactic Acid Fup @ 2Hr Lactic Acid Fup @ 4Hr Calcium 7.4 L D Magnesium 1.6 Total Bilirubin 22.7 H Direct Bilirubin 17.3 H GGT AST 244 H ALT 53 H Alkaline Phosphatase 225 H Total Protein 5.3 L Albumin 2.6 L Vitamin B12 Folate Hep Bs Antigen Negative Hep Bs Antibody NONREACTIVE Hep B Core Total Ab Nonreactive Hepatitis C Ab (EIA) Nonreactive HIV 1&2 Ab/P24 Ag 4thGn Nonreactive 07/11/21 07/11/21 07:51 11:27 MCV 104.0 H MCH 35.8 H MCHC 34.4 RDW 17.0 H Plt Count 112 L MPV 9.9 Absolute Nucleated RBC 0.000 Nucleated RBC % (auto) 0.0 PT INR Anion Gap Estim Creat Clear Calc Estimated GFR POC Glucose 149 H Random Glucose Estimat Average Glucose Hemoglobin A1c % Lactic Acid Fup @ 2Hr Lactic Acid Fup @ 4Hr Calcium Magnesium Total Bilirubin Direct Bilirubin GGT AST ALT Alkaline Phosphatase Total Protein Albumin Vitamin B12 Folate Hep Bs Antigen Hep Bs Antibody Hep B Core Total Ab Hepatitis C Ab (EIA) HIV 1&2 Ab/P24 Ag 4thGn Microbiology Microbiology Results: Microbiology 07/10/21 Unknown Urine Culture - Final Urine clean catch - Urine marx top No growth. Assessment and Plan (1) Alcoholic hepatitis: Status: Acute (2) Cholestatic jaundice: Status: Acute (3) Lactic acid acidosis: Status: Acute Assessment and Plan: hospital d#2 35yo M with alcohol use disorder complicated by past episodes of hepatitis, pancreatitis, and withdrawal presenting with RUQ pain and cholestatic jaundice. # cholestatic jaundice - likely EtOH hepatitis, severe with MDF 34. HIDA inconclusive- will obtain MRI/MRCP. Pending rule out of cholecystitis, will give pentoxyfilline rather than steroids.? Monitor LFTs. GI consulted, serologic workup sent # EtOH intoxication with high-risk withdrawal - phenobarbital taper and vitamin supplementation; consultin [facility]ARE Team and Addiction Medicine # lactic acidosis - doubt sepsis, suspect due to dehydration/EtOH; will give LR # hypoK - repleted # hypoMg - repleted # pancytopenia - mild, likely due to myelosuppression from EtOH; monitor CBC # HTN - continue amlodipine # DM2, A1c 9.2 - correction-dose lispro # anxiety - continue escitalopram # VTE ppx - LMWH # code - full Quality Stroke Does the patient have a stroke diagnosis?: No VTE Prior VTE?: No VTE Risk Level:: Medical - moderate - high VTE Device Contraindication: N/A - Device Ordered VTE Drug Contraindication: N/A - Med Ordered
--- NOTE | 2021-07-11 14:34 | PM.EVENT ---
Event Note Date of Service: 07/11/21 Event Note: Addiction brief note: Patient medically admitted for acute alcoholic hepatitis and alcohol withdrawal. Attempted to meet with patient in ED room 20, but patient reproting that he recently received morphine for pain. RSRN to follow up in AM
[2021-07-11] MEDS: Enoxaparin Sodium 40 MG/0.4 ML SYRINGE SUBCUT (15:12)
[2021-07-11 16:37] LABS: Glucose, Whole Blood 168 mg/dL (60-115)
[2021-07-11] MEDS: ondansetron HCL 4 MG/2 ML VIAL IVPUSH (17:59)
[2021-07-11] MEDS: Insulin Lispro 100 UNIT/ML 3 ML VIAL SUBCUT (18:15)
--- NOTE | 2021-07-11 19:05 | PC.NURSE ---
MRI checklist done by this RN and placed in folder
[2021-07-11 21:22] LABS: Glucose, Whole Blood 143 mg/dL (60-115)
--- NOTE | 2021-07-11 22:41 | PM.GIPN ---
Subjective Subjective Date of Service: 07/11/21 Interval History: More relaxed today Still has pain but less no nausea or vomiting, managing some PO diet not passing gas or stool hida is non diagnostic Critical Care Time (minutes): 18 Physical Exam Vital Signs: Vital Signs: Last Vital Signs Temp 99.2 F 07/11/21 21:20 Pulse 110 H 07/11/21 21:20 Resp 18 07/11/21 21:20 BP 134/86 07/11/21 21:20 Pulse Ox 98 07/11/21 21:20 BMI result Body Mass Index 34.7 Gen: NAD HEENT: sclera icteric, moist mucus membranes Neck: supple Lungs: clear to auscultation bilaterally Heart: tachycardic, no murmurs Abd: soft, RUQ tender without rebound, non-distended Ext: no edema Skin: warm/well-perfused, jaundiced Neuro: alert and oriented x3, no focal findings, no asterixis Psych: appropriate affect Objective Data Labs CBC & Chem 7: 07/11/21 07:51 07/11/21 07:51 Labs: Laboratory Results - last 24 hr 07/10/21 07/11/21 07/11/21 22:39 07:07 07:51 WBC RBC Hgb Hct MCV MCH MCHC RDW Plt Count MPV Absolute Nucleated RBC Nucleated RBC % (auto) PT 15.8 H INR 1.4 H Sodium Potassium Chloride Carbon Dioxide Anion Gap BUN Creatinine Estim Creat Clear Calc Estimated GFR POC Glucose 136 H 133 H Random Glucose Calcium Magnesium Total Bilirubin Direct Bilirubin AST ALT Alkaline Phosphatase Total Protein Albumin Hep Bs Antigen Hep Bs Antibody Hep B Core Total Ab Hepatitis C Ab (EIA) HIV 1&2 Ab/P24 Ag 4thGn 07/11/21 07/11/21 07/11/21 07:51 07:51 07:51 WBC 4.6 L RBC 3.02 L Hgb 10.8 L Hct 31.4 L MCV 104.0 H MCH 35.8 H MCHC 34.4 RDW 17.0 H Plt Count 112 L MPV 9.9 Absolute Nucleated RBC 0.000 Nucleated RBC % (auto) 0.0 PT INR Sodium 132 L Potassium 3.3 Chloride 95 L Carbon Dioxide 24 Anion Gap 16 BUN 3 L Creatinine 0.54 Estim Creat Clear Calc 253.1 Estimated GFR > 60 POC Glucose Random Glucose 169 H Calcium 7.4 L D Magnesium 1.6 Total Bilirubin 22.7 H Direct Bilirubin 17.3 H AST 244 H ALT 53 H Alkaline Phosphatase 225 H Total Protein 5.3 L Albumin 2.6 L Hep Bs Antigen Negative Hep Bs Antibody NONREACTIVE Hep B Core Total Ab Nonreactive Hepatitis C Ab (EIA) Nonreactive HIV 1&2 Ab/P24 Ag 4thGn Nonreactive 07/11/21 07/11/21 07/11/21 11:27 16:33 21:14 WBC RBC Hgb Hct MCV MCH MCHC RDW Plt Count MPV Absolute Nucleated RBC Nucleated RBC % (auto) PT INR Sodium Potassium Chloride Carbon Dioxide Anion Gap BUN Creatinine Estim Creat Clear Calc Estimated GFR POC Glucose 149 H 168 H 143 H Random Glucose Calcium Magnesium Total Bilirubin Direct Bilirubin AST ALT Alkaline Phosphatase Total Protein Albumin Hep Bs Antigen Hep Bs Antibody Hep B Core Total Ab Hepatitis C Ab (EIA) HIV 1&2 Ab/P24 Ag 4thGn Microbiology Microbiology Results: Microbiology 07/10/21 12:04 Blood - Venous Blood Culture - Preliminary No growth after 24 hours. 07/10/21 12:04 Blood - Venous Blood Culture - Preliminary No growth after 24 hours. 07/10/21 Unknown Urine clean catch - Urine marx top Urine Culture - Final No growth. Procedures Date of Service Date of Service: 07/11/21 Progress Note: A&P Assessment and plan (1) Alcoholic hepatitis: Status: Acute Assessment and Plan: 1/ Acute alcoholic hepatitis, much less likely cholecystitis PLAN: 1/ MRI -if neg then commence pred 40 mg 2/ cont with high protein diet 3/ treat alcohol withdrawal Fall Risk Details Current Medications: Current Medications Amlodipine Besylate (Amlodipine Besylate 5 Mg Tablet) 5 mg PO DAILY [facility]; Protocol Last Admin: 07/11/21 09:14 Dose: 5 mg Documented by: Dextrose (Dextrose 50 % 25 Gm/50 Ml Vial) 25 gm IVPUSH Q15M PRN; Protocol PRN Reason: per Hypoglycemia Standing Ord. Enoxaparin Sodium (Enoxaparin Sodium 40 Mg/0.4 Ml Syringe) 40 mg SUBCUT Q24H [facility] Last Admin: 07/11/21 15:12 Dose: 40 mg Documented by: Escitalopram Oxalate (Escitalopram Oxalate 10 Mg Tablet) 10 mg PO DAILY [facility] Last Admin: 07/11/21 09:15 Dose: 10 mg Documented by: Folic Acid (Folic Acid 1 Mg Tablet) 1 mg PO DAILY [facility] Last Admin: 07/11/21 09:15 Dose: 1 mg Documented by: Glucose (Glucose Gel 15 Gm Gel..Gram.) 15 gm PO Q15M PRN; Protocol PRN Reason: per Hypoglycemia Standing Ord. Lactated Ringer's (Lr) 1,000 mls @ 125 mls/hr IVCONT .Q8H [facility] Last Admin: 07/11/21 15:12 Dose: 125 mls/hr Documented by: Insulin Human Lispro (Insulin Lispro 100 Unit/Ml 3 Ml Vial) 0 unit SUBCUT QIDACHS [facility]; Protocol Last Admin: 07/11/21 21:36 Dose: Not Given Documented by: Medication (No Benzodiazepines) 1 each MISCELLANE DAILY [facility] Morphine Sulfate (Morphine Sulfate 2 Mg/Ml Cartridge) 2 mg IM Q2H [facility]; Protocol PRN Reason: severe pain Last Admin: 07/11/21 17:57 Dose: 2 mg Documented by: Multivitamins/Vitamin C (Multivitamin Tablet) 1 tab PO DAILY [facility] Last Admin: 07/11/21 09:15 Dose: 1 tab Documented by: Omeprazole (Omeprazole 20 Mg Capsule.Dr) 20 mg PO DAILY@0630 PRN PRN Reason: gerd Ondansetron HCl (Ondansetron Hcl 4 Mg/2 Ml Vial) 4 mg IVPUSH Q8H PRN PRN Reason: Nausea and Vomiting Last Admin: 07/11/21 17:59 Dose: 4 mg Documented by: Oxycodone HCl (Oxycodone Hcl Immed Release 5 Mg Tablet) 5 mg PO Q4H PRN PRN Reason: moderate pain Pentoxifylline (Pentoxifylline Er 400 Mg Tablet.Er) 400 mg PO TID [facility] Last Admin: 07/11/21 21:38 Dose: 400 mg Documented by: Pharmacy Consult (Consult Rx Perform Med Rec) 1 each MISCELLANE ONCE PRN PRN Reason: Consult order Phenobarbital (Phenobarbital 30 Mg Tablet) 30 mg PO BID [facility]; Protocol Stop: 07/14/21 21:01 Phenobarbital (Phenobarbital 30 Mg Tablet) 60 mg PO BID [facility]; Protocol Stop: 07/12/21 21:01 Last Admin: 07/11/21 21:37 Dose: 60 mg Documented by: Phenobarbital (Phenobarbital 30 Mg Tablet) 30 mg PO DAILY [facility]; Protocol Stop: 12/20/21 09:01 Sodium Chloride (0.9 % Sodium Chloride Flush 3 Ml Syringe) 3 ml IVFLUSH QSHIFT [facility] Last Admin: 07/11/21 21:39 Dose: Not Given Documented by: Thiamine HCl (Thiamine Hcl 100 Mg Tablet) 100 mg PO DAILY [facility] Last Admin: 07/11/21 09:15 Dose: 100 mg Documented by: Time Spent With Patient Time: Total time spent is greater than 50% in coordination of care (as documented) at patient's floor/unit and/or counseling patient: Time with patient: 15 - 24 minutes Quality Stroke Does the patient have a stroke diagnosis?: No VTE Prior VTE?: No VTE Risk Level:: Medical - moderate - high VTE Device Contraindication: N/A - Device Ordered VTE Drug Contraindication: N/A - Med Ordered
[2021-07-12] VITALS (8 sets, daily range): BP systolic 120–132; BP diastolic 64–73; PULSE 72–116; RESP 16–20; TEMP 36.2–37.2; O2SAT 94–96
[2021-07-12 06:14] LABS: Hematocrit 31.4 % (42.0-52.0); Hemoglobin 10.7 g/dl (14.0-18.0); Mean Corpuscular HGB Conc 34.1 g/dl (31.0-36.0); Mean Corpuscular Hemoglobin 35.1 pg (27.0-33.0); Mean Platelet Volume 10.1 fL (9.4-12.4); NRBC Pct Auto 0.4 /100WBC (0.0-0.2); Platelet Count 126 X10*3/uL (160-400); Red Blood Count 3.05 X10*6/uL (4.60-5.80); Red Cell Distribution Width 17.1 % (11.0-16.0); White Blood Count 4.9 X10*3/uL (4.8-10.8)
[2021-07-12 07:06] LABS: Alanine Aminotransferase 46 U/L (0-40); Albumin Level 2.6 g/dL (3.5-5.0); Alkaline Phosphatase 212 U/L (39-117); Anion Gap 13 (12-20); Aspartate Amino Transferase 221 U/L (5-37); Bilirubin Total 25.7 mg/dL (0.0-1.0); Blood Urea Nitrogen 3 mg/dL (9-16); Calcium 7.7 mg/dL (8.4-10.2); Carbon Dioxide 25 mmol/L (22-29); Chloride 98 mmol/L (96-108); Estimated Glomerular Filt Rate > 60; Glucose Random 116 mg/dL (60-115); Magnesium 1.6 mg/dL (1.6-2.6); Potassium 3.1 mmol/L (3.3-5.1); Sodium 133 mmol/L (135-145); Total Protein 5.3 g/dL (6.5-8.0)
[2021-07-12 07:24] LABS: Bilirubin Direct 19.1 mg/dL (0.0-0.5)
[2021-07-12 07:41] LABS: Glucose, Whole Blood 123 mg/dL (60-115)
[2021-07-12] MEDS: ondansetron HCL 4 MG/2 ML VIAL IVPUSH ×2 (07:56→18:04)
[2021-07-12] MEDS: Morphine Sulfate 2 MG/ML CARTRIDGE IM ×2 (07:56→18:04)
[2021-07-12] MEDS: Lactated Ringers 1,000 ML 125 ML IVCONT ×3 (08:01→23:59)
[2021-07-12] MEDS: Potassium Chloride ER 20 MEQ TAB.ER.PRT 40 MEQ PO (10:01)
[2021-07-12] MEDS: PHENobarbitaL 30 MG TABLET 60 MG PO ×2 (10:01→21:27)
[2021-07-12] MEDS: Multivitamin TABLET 1 TAB PO (10:02)
[2021-07-12] MEDS: Thiamine HCL 100 MG TABLET PO (10:02)
[2021-07-12] MEDS: Escitalopram Oxalate 10 MG TABLET PO (10:02)
[2021-07-12] MEDS: amLODIPine Besylate 5 MG TABLET PO (10:02)
[2021-07-12] MEDS: Pentoxifylline ER 400 MG TABLET.ER PO ×3 (10:02→21:26)
[2021-07-12] MEDS: Folic Acid 1 MG TABLET PO (10:02)
--- NOTE | 2021-07-12 10:28 | P.PNIM_ITS ---
Subjective Subjective Date of Service: 07/12/21 Interval History: RUQ pain improved No fever Withdrawal symptoms under control Review of Systems Review of Systems: Yes all other systems are reviewed and are negative Physical Exam Vital Signs: Vital Signs: Last Vital Signs Temp 98.6 F 07/12/21 07:18 Pulse 116 H 07/12/21 10:02 Resp 18 07/12/21 07:18 BP 132/64 07/12/21 10:02 Pulse Ox 95 07/12/21 07:18 BMI result Body Mass Index 34.7 Gen: NAD HEENT: sclera icteric, moist mucus membranes Neck: supple Lungs: clear to auscultation bilaterally Heart: tachycardic, no murmurs Abd: soft, RUQ tender without rebound, non-distended Ext: no edema Skin: warm/well-perfused, jaundiced Neuro: alert and oriented x3, no focal findings, no asterixis Psych: appropriate affect Objective Data Active Medications Amlodipine Besylate (Amlodipine Besylate 5 Mg Tablet) 5 mg PO DAILY [facility]; Protocol Last Admin: 07/12/21 10:02 Dose: 5 mg Documented by: JOYCE Dextrose (Dextrose 50 % 25 Gm/50 Ml Vial) 25 gm IVPUSH Q15M PRN; Protocol PRN Reason: per Hypoglycemia Standing Ord. Enoxaparin Sodium (Enoxaparin Sodium 40 Mg/0.4 Ml Syringe) 40 mg SUBCUT Q24H [facility] Last Admin: 07/11/21 15:12 Dose: 40 mg Documented by: NIKOLAI Escitalopram Oxalate (Escitalopram Oxalate 10 Mg Tablet) 10 mg PO DAILY [facility] Last Admin: 07/12/21 10:02 Dose: 10 mg Documented by: JOYCE Folic Acid (Folic Acid 1 Mg Tablet) 1 mg PO DAILY [facility] Last Admin: 07/12/21 10:02 Dose: 1 mg Documented by: JOYCE Glucose (Glucose Gel 15 Gm Gel..Gram.) 15 gm PO Q15M PRN; Protocol PRN Reason: per Hypoglycemia Standing Ord. Lactated Ringer's (Lr) 1,000 mls @ 125 mls/hr IVCONT .Q8H [facility] Last Admin: 07/12/21 08:01 Dose: 125 mls/hr Documented by: JOYCE Insulin Human Lispro (Insulin Lispro 100 Unit/Ml 3 Ml Vial) 0 unit SUBCUT QIDACHS [facility]; Protocol Last Admin: 07/12/21 07:46 Dose: Not Given Documented by: DAMION Non-Admin Reason: No Insulin Coverage Medication (No Benzodiazepines) 1 each MISCELLANE DAILY [facility] Morphine Sulfate (Morphine Sulfate 2 Mg/Ml Cartridge) 2 mg IM Q2H PRN; Protocol PRN Reason: severe pain Last Admin: 07/12/21 07:56 Dose: 2 mg Documented by: JOYCE Multivitamins/Vitamin C (Multivitamin Tablet) 1 tab PO DAILY [facility] Last Admin: 07/12/21 10:02 Dose: 1 tab Documented by: JOYCE Omeprazole (Omeprazole 20 Mg Capsule.Dr) 20 mg PO DAILY@0630 PRN PRN Reason: gerd Ondansetron HCl (Ondansetron Hcl 4 Mg/2 Ml Vial) 4 mg IVPUSH Q8H PRN PRN Reason: Nausea and Vomiting Last Admin: 07/12/21 07:56 Dose: 4 mg Documented by: JOYCE Oxycodone HCl (Oxycodone Hcl Immed Release 5 Mg Tablet) 5 mg PO Q4H PRN PRN Reason: moderate pain Pentoxifylline (Pentoxifylline Er 400 Mg Tablet.Er) 400 mg PO TID [facility] Last Admin: 07/12/21 10:02 Dose: 400 mg Documented by: JOYCE Pharmacy Consult (Consult Rx Perform Med Rec) 1 each MISCELLANE ONCE PRN PRN Reason: Consult order Phenobarbital (Phenobarbital 30 Mg Tablet) 30 mg PO BID [facility]; Protocol Stop: 07/14/21 21:01 Phenobarbital (Phenobarbital 30 Mg Tablet) 60 mg PO BID [facility]; Protocol Stop: 07/12/21 21:01 Last Admin: 07/12/21 10:01 Dose: 60 mg Documented by: JOYCE Phenobarbital (Phenobarbital 30 Mg Tablet) 30 mg PO DAILY [facility]; Protocol Stop: 07/16/21 09:01 Sodium Chloride (0.9 % Sodium Chloride Flush 3 Ml Syringe) 3 ml IVFLUSH QSHIFT [facility] Last Admin: 07/12/21 10:02 Dose: Not Given Documented by: JOYCE Non-Admin Reason: IV Running Thiamine HCl (Thiamine Hcl 100 Mg Tablet) 100 mg PO DAILY [facility] Last Admin: 07/12/21 10:02 Dose: 100 mg Documented by: JOYCE Labs CBC & Chem 7: 07/12/21 05:40 07/12/21 05:40 Labs: Laboratory Results - last 24 hr 07/11/21 07/11/21 07/11/21 07:51 11:27 16:33 MCV MCH MCHC RDW Plt Count MPV Absolute Nucleated RBC Nucleated RBC % (auto) Anion Gap Estim Creat Clear Calc Estimated GFR POC Glucose 149 H 168 H Random Glucose Calcium Magnesium Total Bilirubin Direct Bilirubin AST ALT Alkaline Phosphatase Total Protein Albumin Hep Bs Antibody NONREACTIVE 07/11/21 07/12/21 07/12/21 21:14 05:40 05:40 MCV 103.0 H MCH 35.1 H MCHC 34.1 RDW 17.1 H Plt Count 126 L MPV 10.1 Absolute Nucleated RBC 0.020 H Nucleated RBC % (auto) 0.4 H Anion Gap 13 Estim Creat Clear Calc 240.0 Estimated GFR > 60 POC Glucose 143 H Random Glucose 116 H Calcium 7.7 L Magnesium 1.6 Total Bilirubin 25.7 H Direct Bilirubin 19.1 H AST 221 H ALT 46 H Alkaline Phosphatase 212 H Total Protein 5.3 L Albumin 2.6 L Hep Bs Antibody 07/12/21 07:18 MCV MCH MCHC RDW Plt Count MPV Absolute Nucleated RBC Nucleated RBC % (auto) Anion Gap Estim Creat Clear Calc Estimated GFR POC Glucose 123 H Random Glucose Calcium Magnesium Total Bilirubin Direct Bilirubin AST ALT Alkaline Phosphatase Total Protein Albumin Hep Bs Antibody Impressions Hepatobiliary Scan Nuclear Medicine 07/10/21 19:35 FINDINGS/IMPRESSION: There is decreased radiotracer uptake by the liver and no evidence of radiotracer activity within the biliary tree. The gallbladder is not visualized. There is no radiotracer activity within the bowel. These constellation of findings are likely related with severe liver disease and in this setting evaluation of acute cholecystitis with this imaging modality is nondiagnostic. Less likely, these findings could be related with a significant biliary obstruction for which correlation with an MRCP or with an interval planar image in 24 hours could be obtained. This critical result was discussed with Dr Garcia at 07/10/2021 9:31 PM and it was ascertained that the content and urgency of the report was understood at the time of direct communication. Microbiology Microbiology Results: Microbiology 07/10/21 12:04 Blood Culture - Preliminary Blood - Venous No growth after 24 hours. 07/10/21 12:04 Blood Culture - Preliminary Blood - Venous No growth after 24 hours. 07/10/21 Unknown Urine Culture - Final Urine clean catch - Urine marx top No growth. Assessment and Plan (1) Alcoholic hepatitis: Status: Acute (2) Cholestatic jaundice: Status: Acute (3) Lactic acid acidosis: Status: Acute Assessment and Plan: hospital d#3 35yo M with alcohol use disorder complicated by past episodes of hepatitis, pancreatitis, and withdrawal presenting with RUQ pain and cholestatic jaundice. # cholestatic jaundice - likely EtOH hepatitis, severe with MDF 34. HIDA inconclusive- MRI/MRCP pending and until cholecystitis ruled out, will give pentoxyfilline rather than steroids.? Monitor LFTs. GI consulted, serologic workup sent # EtOH intoxication with high-risk withdrawal - phenobarbital taper and vitamin supplementation; consulting CARE Team and Addiction Medicine # lactic acidosis - doubt sepsis, suspect due to dehydration/EtOH; repleted volume with LR # hypoK - replete PO, monitor # hypoMg - repleted # pancytopenia - mild, likely due to myelosuppression from EtOH; monitor CBC # HTN - continue amlodipine # DM2, A1c 9.2 - correction-dose lispro # anxiety - continue escitalopram # VTE ppx - LMWH # code - full Quality Stroke Does the patient have a stroke diagnosis?: No VTE Prior VTE?: No VTE Risk Level:: Medical - moderate - high VTE Device Contraindication: N/A - Device Ordered VTE Drug Contraindication: N/A - Med Ordered
[2021-07-12 11:21] LABS: Glucose, Whole Blood 131 mg/dL (60-115)
--- NOTE | 2021-07-12 15:35 | MHC.RECOVRN ---
Met with pt to f/u regarding alcohol use and recovery. Pt reports drinking 750 ml liquor daily x approx 8 weeks. Prior to that, last drink was in December. Pt reports periods of recovery since age 23, longest period being over a year. Pt reports AA is most helpful in maintaining recovery. Pt has therapist through [facility] that pt also finds helpful. In addition, pt reports friends and family are very supportive. 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 Pt identifies life stressors precipitated return to use including a loss, COVID stress, and health issues with family dog. Pt educated regarding medications for AUD and other recovery supports and services. Pt declines referrals at this time. Pt provided with written information as well as t/w contact information if questions or concerns arise. Discussed with Daphnie Vargas APRN.
[2021-07-12] MEDS: Enoxaparin Sodium 40 MG/0.4 ML SYRINGE SUBCUT (16:11)
[2021-07-12 16:34] LABS: Glucose, Whole Blood 119 mg/dL (60-115)
[2021-07-12 20:18] LABS: Glucose, Whole Blood 115 mg/dL (60-115)
[2021-07-13] VITALS (10 sets, daily range): BP systolic 114–144; BP diastolic 65–80; PULSE 88–104; RESP 16–20; TEMP 36.9–37.4; O2SAT 94–96
[2021-07-13] MEDS: Morphine Sulfate 2 MG/ML CARTRIDGE IM ×2 (00:02→08:44)
[2021-07-13 06:54] LABS: Hematocrit 30.4 % (42.0-52.0); Hemoglobin 10.2 g/dl (14.0-18.0); INTERNATIONAL NORM RATIO 1.6 (0.9-1.1); Mean Corpuscular HGB Conc 33.6 g/dl (31.0-36.0); Mean Corpuscular Hemoglobin 35.2 pg (27.0-33.0); Mean Corpuscular Volume 104.8 fL (80.0-98.0); Mean Platelet Volume 9.7 fL (9.4-12.4); NRBC Pct Auto 0.4 /100WBC (0.0-0.2); Platelet Count 138 X10*3/uL (160-400); Prothrombin Time 18.4 SEC (9.9-13.0); Red Cell Distribution Width 17.4 % (11.0-16.0); White Blood Count 4.6 X10*3/uL (4.8-10.8)
[2021-07-13 07:30] LABS: Alanine Aminotransferase 40 U/L (0-40); Albumin Level 2.4 g/dL (3.5-5.0); Alkaline Phosphatase 196 U/L (39-117); Anion Gap 12 (12-20); Aspartate Amino Transferase 198 U/L (5-37); Bilirubin Total 24.4 mg/dL (0.0-1.0); Blood Urea Nitrogen 4 mg/dL (9-16); Calcium 7.7 mg/dL (8.4-10.2); Carbon Dioxide 25 mmol/L (22-29); Chloride 99 mmol/L (96-108); Estimated Glomerular Filt Rate > 60; Glucose Random 86 mg/dL (60-115); Magnesium 1.5 mg/dL (1.6-2.6); Potassium 3.2 mmol/L (3.3-5.1); Sodium 133 mmol/L (135-145); Total Protein 4.9 g/dL (6.5-8.0)
[2021-07-13] MEDS: Lactated Ringers 1,000 ML 125 ML IVCONT ×3 (07:34→22:44)
[2021-07-13 07:51] LABS: Bilirubin Direct 18.5 mg/dL (0.0-0.5)
[2021-07-13 08:03] LABS: Glucose, Whole Blood 93 mg/dL (60-115)
[2021-07-13] MEDS: Potassium Chloride ER 20 MEQ TAB.ER.PRT 40 MEQ PO (08:08)
[2021-07-13] MEDS: Magnesium Oxide 400 MG TABLET 800 MG PO (08:11)
[2021-07-13] MEDS: Escitalopram Oxalate 10 MG TABLET PO (08:11)
[2021-07-13] MEDS: Folic Acid 1 MG TABLET PO (08:11)
[2021-07-13] MEDS: Thiamine HCL 100 MG TABLET PO (08:11)
[2021-07-13] MEDS: Multivitamin TABLET 1 TAB PO (08:11)
[2021-07-13] MEDS: amLODIPine Besylate 5 MG TABLET PO (08:12)
[2021-07-13] MEDS: PHENobarbitaL 30 MG TABLET PO ×2 (08:12→20:43)
[2021-07-13] MEDS: Pentoxifylline ER 400 MG TABLET.ER PO (08:12)
[2021-07-13] MEDS: ondansetron HCL 4 MG/2 ML VIAL IVPUSH (08:35)
[2021-07-13] MEDS: methylPREDNISolone Sod Succ 40 MG/ML VIAL 32 MG IVPUSH (10:26)
--- NOTE | 2021-07-13 10:37 | P.PNIM_ITS ---
Subjective Subjective Date of Service: 07/13/21 Interval History: RUQ pain/nausea improved slightly. Tolerating diet. No melena. Review of Systems Review of Systems: Yes all other systems are reviewed and are negative Physical Exam Vital Signs: Vital Signs: Last Vital Signs Temp 98.6 F 07/13/21 08:00 Pulse 104 H 07/13/21 08:12 Resp 16 07/13/21 08:44 BP 136/80 07/13/21 08:12 Pulse Ox 95 07/13/21 08:00 BMI result Body Mass Index 34.7 Gen: NAD HEENT: sclera icteric, moist mucus membranes Neck: supple Lungs: clear to auscultation bilaterally Heart: tachycardic, no murmurs Abd: soft, RUQ tender without rebound, non-distended Ext: no edema Skin: warm/well-perfused, jaundiced Neuro: alert and oriented x3, no focal findings, no asterixis Psych: appropriate affect Objective Data Active Medications Amlodipine Besylate (Amlodipine Besylate 5 Mg Tablet) 5 mg PO DAILY [facility]; Protocol Last Admin: 07/13/21 08:12 Dose: 5 mg Documented by: DAMION Dextrose (Dextrose 50 % 25 Gm/50 Ml Vial) 25 gm IVPUSH Q15M PRN; Protocol PRN Reason: per Hypoglycemia Standing Ord. Enoxaparin Sodium (Enoxaparin Sodium 40 Mg/0.4 Ml Syringe) 40 mg SUBCUT Q24H [facility] Last Admin: 07/12/21 16:11 Dose: 40 mg Documented by: JOYCE Escitalopram Oxalate (Escitalopram Oxalate 10 Mg Tablet) 10 mg PO DAILY [facility] Last Admin: 07/13/21 08:11 Dose: 10 mg Documented by: DAMION Folic Acid (Folic Acid 1 Mg Tablet) 1 mg PO DAILY [facility] Last Admin: 07/13/21 08:11 Dose: 1 mg Documented by: DAMION Glucose (Glucose Gel 15 Gm Gel..Gram.) 15 gm PO Q15M PRN; Protocol PRN Reason: per Hypoglycemia Standing Ord. Lactated Ringer's (Lr) 1,000 mls @ 125 mls/hr IVCONT .Q8H [facility] Last Admin: 07/13/21 07:34 Dose: 125 mls/hr Documented by: DAMION Insulin Human Lispro (Insulin Lispro 100 Unit/Ml 3 Ml Vial) 0 unit SUBCUT QIDACHS [facility]; Protocol Last Admin: 07/13/21 08:04 Dose: Not Given Documented by: DAMION Non-Admin Reason: No Insulin Coverage Medication (No Benzodiazepines) 1 each MISCELLANE DAILY [facility] Methylprednisolone Sodium Succinate (Methylprednisolone Sod Succ 40 Mg/Ml Vial) 32 mg IVPUSH Q24H [facility] Last Admin: 07/13/21 10:26 Dose: 32 mg Documented by: DAMION Morphine Sulfate (Morphine Sulfate 2 Mg/Ml Cartridge) 2 mg IVPUSH Q2H PRN; Protocol PRN Reason: severe pain Multivitamins/Vitamin C (Multivitamin Tablet) 1 tab PO DAILY [facility] Last Admin: 07/13/21 08:11 Dose: 1 tab Documented by: DAMION Omeprazole (Omeprazole 20 Mg Capsule.Dr) 20 mg PO DAILY@0630 PRN PRN Reason: gerd Ondansetron HCl (Ondansetron Hcl 4 Mg/2 Ml Vial) 4 mg IVPUSH Q8H PRN PRN Reason: Nausea and Vomiting Last Admin: 07/13/21 08:35 Dose: 4 mg Documented by: DAMION Oxycodone HCl (Oxycodone Hcl Immed Release 5 Mg Tablet) 5 mg PO Q4H PRN PRN Reason: moderate pain Pharmacy Consult (Consult Rx Perform Med Rec) 1 each MISCELLANE ONCE PRN PRN Reason: Consult order Phenobarbital (Phenobarbital 30 Mg Tablet) 30 mg PO BID [facility]; Protocol Stop: 07/14/21 21:01 Last Admin: 07/13/21 08:12 Dose: 30 mg Documented by: DAMION Phenobarbital (Phenobarbital 30 Mg Tablet) 30 mg PO DAILY [facility]; Protocol Stop: 07/16/21 09:01 Sodium Chloride (0.9 % Sodium Chloride Flush 3 Ml Syringe) 3 ml IVFLUSH QSHIFT [facility] Last Admin: 07/13/21 07:34 Dose: Not Given Documented by: DAMION Non-Admin Reason: IV Running Thiamine HCl (Thiamine Hcl 100 Mg Tablet) 100 mg PO DAILY [facility] Last Admin: 07/13/21 08:11 Dose: 100 mg Documented by: DAMION Labs CBC & Chem 7: 07/13/21 05:51 07/13/21 05:51 Labs: Laboratory Results - last 24 hr 07/12/21 07/12/21 07/12/21 11:14 16:30 20:13 MCV MCH MCHC RDW Plt Count MPV Absolute Nucleated RBC Nucleated RBC % (auto) PT INR Anion Gap Estim Creat Clear Calc Estimated GFR POC Glucose 131 H 119 H 115 Random Glucose Calcium Magnesium Total Bilirubin Direct Bilirubin AST ALT Alkaline Phosphatase Total Protein Albumin 07/13/21 07/13/21 07/13/21 05:51 05:51 05:51 MCV 104.8 H MCH 35.2 H MCHC 33.6 RDW 17.4 H Plt Count 138 L MPV 9.7 Absolute Nucleated RBC 0.020 H Nucleated RBC % (auto) 0.4 H PT 18.4 H INR 1.6 H Anion Gap 12 Estim Creat Clear Calc 240.0 Estimated GFR > 60 POC Glucose Random Glucose 86 Calcium 7.7 L Magnesium 1.5 L Total Bilirubin 24.4 H Direct Bilirubin 18.5 H AST 198 H ALT 40 Alkaline Phosphatase 196 H Total Protein 4.9 L Albumin 2.4 L 07/13/21 07:54 MCV MCH MCHC RDW Plt Count MPV Absolute Nucleated RBC Nucleated RBC % (auto) PT INR Anion Gap Estim Creat Clear Calc Estimated GFR POC Glucose 93 Random Glucose Calcium Magnesium Total Bilirubin Direct Bilirubin AST ALT Alkaline Phosphatase Total Protein Albumin Microbiology Microbiology Results: Microbiology 07/10/21 12:04 Blood Culture - Preliminary Blood - Venous No growth after 48 hours. 07/10/21 12:04 Blood Culture - Preliminary Blood - Venous No growth after 48 hours. Assessment and Plan (1) Alcoholic hepatitis: Status: Acute (2) Cholestatic jaundice: Status: Acute (3) Lactic acid acidosis: Status: Acute Assessment and Plan: hospital d#4 35yo M with alcohol use disorder complicated by past episodes of hepatitis, pancreatitis, and withdrawal presenting with RUQ pain and severe cholestatic jaundice. # cholestatic jaundice - reviewed HIDA + MRCP with GI + Gen Surg and this is all likely due to EtOH hepatitis. will switch pentoxyfilline to steroids, methylprednisolone 32 mg IV daily day 08/24 (change to PO prednisolone upon discharge). monitor LFTs. s erologic workup ordered by GI # EtOH intoxication with high-risk withdrawal - phenobarbital taper and vitamin supplementation; consulting CARE Team and Addiction Medicine # lactic acidosis - doubt sepsis, suspect due to dehydration/EtOH + impaired clearance from hepatic dysfunction # hypoK - replete PO, monitor # hypoMg - replete PO, monitor # pancytopenia - mild, likely due to myelosuppression from EtOH # HTN - continue amlodipine # DM2, A1c 9.2 - correction-dose lispro # anxiety - continue escitalopram # VTE ppx - LMWH # code - full Quality Stroke Does the patient have a stroke diagnosis?: No VTE Prior VTE?: No VTE Risk Level:: Medical - moderate - high VTE Device Contraindication: N/A - Device Ordered VTE Drug Contraindication: N/A - Med Ordered
[2021-07-13 11:21] LABS: Glucose, Whole Blood 120 mg/dL (60-115)
[2021-07-13 13:42] LABS: Ceruloplasmin 32 mg/dL (18-36)
[2021-07-13] MEDS: Enoxaparin Sodium 40 MG/0.4 ML SYRINGE SUBCUT (15:10)
[2021-07-13 15:25] LABS: Gliadin Deamidated IgA Ab 1.6 U/mL; Gliadin Deamidated IgG Ab <1.0 U/mL
[2021-07-13 15:31] LABS: Transglutaminase Ab IgG <1.0 U/mL; Transglutaminase IgA <1.0 U/mL
[2021-07-13 16:35] LABS: Glucose, Whole Blood 173 mg/dL (60-115)
[2021-07-13] MEDS: Insulin Lispro 100 UNIT/ML 3 ML VIAL SUBCUT ×2 (16:36→22:41)
[2021-07-13] MEDS: Morphine Sulfate 2 MG/ML CARTRIDGE IVPUSH (20:42)
[2021-07-13 20:59] LABS: Glucose, Whole Blood 153 mg/dL (60-115)
[2021-07-13 21:57] LABS: IgA 710 mg/dL (47-310); IgG 1112 mg/dL (600-1640); IgM 169 mg/dL (50-300)
[2021-07-13 22:37] LABS: Anti Nuclear Antibody Screen NEGATIVE (NEGATIVE)
[2021-07-14] VITALS: BP 117/63; PULSE 83; RESP 18; TEMP 36.5; O2SAT 91
[2021-07-14 04:00] VITALS: BP 120/66; PULSE 84; RESP 18; TEMP 37.2; O2SAT 91
[2021-07-14] MEDS: Lactated Ringers 1,000 ML 125 ML IVCONT ×3 (05:56→20:27)
[2021-07-14 07:11] VITALS: BP 124/68; PULSE 99; RESP 18; TEMP 36.7; O2SAT 97
[2021-07-14 07:20] LABS: Glucose, Whole Blood 90 mg/dL (60-115)
[2021-07-14 07:32] LABS: INTERNATIONAL NORM RATIO 1.5 (0.9-1.1); Prothrombin Time 17.2 SEC (9.9-13.0)
[2021-07-14 07:44] LABS: Alanine Aminotransferase 45 U/L (0-40); Albumin Level 2.6 g/dL (3.5-5.0); Alkaline Phosphatase 190 U/L (39-117); Anion Gap 13 (12-20); Aspartate Amino Transferase 216 U/L (5-37); Bilirubin Direct 19.7 mg/dL (0.0-0.5); Bilirubin Total 26.1 mg/dL (0.0-1.0); Blood Urea Nitrogen 5 mg/dL (9-16); Calcium 7.6 mg/dL (8.4-10.2); Carbon Dioxide 24 mmol/L (22-29); Chloride 99 mmol/L (96-108); Estimated Glomerular Filt Rate > 60; Glucose Random 87 mg/dL (60-115); Magnesium 1.7 mg/dL (1.6-2.6); Potassium 3.3 mmol/L (3.3-5.1); Sodium 133 mmol/L (135-145); Total Protein 5.3 g/dL (6.5-8.0)
[2021-07-14] MEDS: ondansetron HCL 4 MG/2 ML VIAL IVPUSH ×2 (09:22→20:24)
[2021-07-14] MEDS: 0.9 % Sodium Chloride Flush 3 ML SYRINGE IVFLUSH ×3 (09:22→20:26)
[2021-07-14] MEDS: Morphine Sulfate 2 MG/ML CARTRIDGE IVPUSH ×2 (09:22→20:25)
[2021-07-14] MEDS: methylPREDNISolone Sod Succ 40 MG/ML VIAL 32 MG IVPUSH (10:05)
[2021-07-14] MEDS: Escitalopram Oxalate 10 MG TABLET PO (10:06)
[2021-07-14] MEDS: Thiamine HCL 100 MG TABLET PO (10:06)
[2021-07-14] MEDS: Folic Acid 1 MG TABLET PO (10:06)
[2021-07-14] MEDS: Multivitamin TABLET 1 TAB PO (10:06)
[2021-07-14] MEDS: PHENobarbitaL 30 MG TABLET PO ×2 (10:06→20:22)
[2021-07-14] MEDS: amLODIPine Besylate 5 MG TABLET PO (10:06)
[2021-07-14 11:04] VITALS: BP 125/68; PULSE 103; RESP 18; TEMP 36.9; O2SAT 93
[2021-07-14 11:10] LABS: Glucose, Whole Blood 134 mg/dL (60-115)
--- NOTE | 2021-07-14 11:24 | HO.PM.IMPN ---
Subjective Subjective Date of Service: 07/14/21 Interval History: Moderate RUQ pain Appetite good Acholic stools No fever Review of Systems Review of Systems: Yes all other systems are reviewed and are negative Physical Exam Vital Signs: Vital Signs: Last Vital Signs Temp 98.5 F 07/14/21 11:04 Pulse 103 H 07/14/21 11:04 Resp 18 07/14/21 11:04 BP 125/68 07/14/21 11:04 Pulse Ox 93 07/14/21 11:04 BMI result Body Mass Index 34.7 Gen: NAD HEENT: sclera icteric, moist mucus membranes Neck: supple Lungs: clear to auscultation bilaterally Heart: tachycardic, no murmurs Abd: soft, RUQ tender without rebound, non-distended Ext: no edema Skin: warm/well-perfused, jaundiced Neuro: alert and oriented x3, no focal findings, no asterixis Psych: appropriate affect Objective Data Active Medications Amlodipine Besylate (Amlodipine Besylate 5 Mg Tablet) 5 mg PO DAILY [facility]; Protocol Last Admin: 07/14/21 10:06 Dose: 5 mg Documented by: PITA Dextrose (Dextrose 50 % 25 Gm/50 Ml Vial) 25 gm IVPUSH Q15M PRN; Protocol PRN Reason: per Hypoglycemia Standing Ord. Enoxaparin Sodium (Enoxaparin Sodium 40 Mg/0.4 Ml Syringe) 40 mg SUBCUT Q24H [facility] Last Admin: 07/13/21 15:10 Dose: 40 mg Documented by: DAMION Escitalopram Oxalate (Escitalopram Oxalate 10 Mg Tablet) 10 mg PO DAILY [facility] Last Admin: 07/14/21 10:06 Dose: 10 mg Documented by: PITA Folic Acid (Folic Acid 1 Mg Tablet) 1 mg PO DAILY [facility] Last Admin: 07/14/21 10:06 Dose: 1 mg Documented by: PITA Glucose (Glucose Gel 15 Gm Gel..Gram.) 15 gm PO Q15M PRN; Protocol PRN Reason: per Hypoglycemia Standing Ord. Lactated Ringer's (Lr) 1,000 mls @ 125 mls/hr IVCONT .Q8H [facility] Last Admin: 07/14/21 05:56 Dose: 125 mls/hr Documented by: MARICRUZ Insulin Human Lispro (Insulin Lispro 100 Unit/Ml 3 Ml Vial) 0 unit SUBCUT QIDACHS [facility]; Protocol Last Admin: 07/14/21 07:22 Dose: Not Given Documented by: PITA Non-Admin Reason: No Insulin Coverage Medication (No Benzodiazepines) 1 each MISCELLANE DAILY [facility] Methylprednisolone Sodium Succinate (Methylprednisolone Sod Succ 40 Mg/Ml Vial) 32 mg IVPUSH Q24H [facility] Last Admin: 07/14/21 10:05 Dose: 32 mg Documented by: PITA Morphine Sulfate (Morphine Sulfate 2 Mg/Ml Cartridge) 2 mg IVPUSH Q2H PRN; Protocol PRN Reason: severe pain Last Admin: 07/14/21 09:22 Dose: 2 mg Documented by: PITA Multivitamins/Vitamin C (Multivitamin Tablet) 1 tab PO DAILY [facility] Last Admin: 07/14/21 10:06 Dose: 1 tab Documented by: PITA Omeprazole (Omeprazole 20 Mg Capsule.Dr) 20 mg PO DAILY@0630 PRN PRN Reason: gerd Ondansetron HCl (Ondansetron Hcl 4 Mg/2 Ml Vial) 4 mg IVPUSH Q8H PRN PRN Reason: Nausea and Vomiting Last Admin: 07/14/21 09:22 Dose: 4 mg Documented by: PITA Oxycodone HCl (Oxycodone Hcl Immed Release 5 Mg Tablet) 5 mg PO Q4H PRN PRN Reason: moderate pain Pharmacy Consult (Consult Rx Perform Med Rec) 1 each MISCELLANE ONCE PRN PRN Reason: Consult order Phenobarbital (Phenobarbital 30 Mg Tablet) 30 mg PO BID [facility]; Protocol Stop: 07/14/21 21:01 Last Admin: 07/14/21 10:06 Dose: 30 mg Documented by: PITA Phenobarbital (Phenobarbital 30 Mg Tablet) 30 mg PO DAILY [facility]; Protocol Stop: 07/16/21 09:01 Sodium Chloride (0.9 % Sodium Chloride Flush 3 Ml Syringe) 3 ml IVFLUSH QSHIFT [facility] Last Admin: 07/14/21 09:22 Dose: 3 ml Documented by: PITA Thiamine HCl (Thiamine Hcl 100 Mg Tablet) 100 mg PO DAILY [facility] Last Admin: 07/14/21 10:06 Dose: 100 mg Documented by: PITA Labs CBC & Chem 7: 07/13/21 05:51 07/14/21 06:22 Labs: Laboratory Results - last 24 hr 07/10/21 07/10/21 07/10/21 19:49 19:49 19:49 PT INR Anion Gap Estim Creat Clear Calc Estimated GFR POC Glucose Random Glucose Calcium Magnesium Total Bilirubin Direct Bilirubin AST ALT Alkaline Phosphatase Total Protein Albumin Ceruloplasmin 32 IgG Total 1112 IgA Total 710 H IgM 169 LENNY Screen Tiss Transglutamin IgG <1.0 Tiss Transglutamin IgA <1.0 Anti-Gliadin IgG Ab <1.0 Gliadin (Deamidat) IgA 1.6 07/10/21 07/13/21 07/13/21 19:49 16:32 20:41 PT INR Anion Gap Estim Creat Clear Calc Estimated GFR POC Glucose 173 H 153 H Random Glucose Calcium Magnesium Total Bilirubin Direct Bilirubin AST ALT Alkaline Phosphatase Total Protein Albumin Ceruloplasmin IgG Total IgA Total IgM LENNY Screen NEGATIVE Tiss Transglutamin IgG Tiss Transglutamin IgA Anti-Gliadin IgG Ab Gliadin (Deamidat) IgA 07/14/21 07/14/21 07/14/21 06:22 06:22 07:10 PT 17.2 H INR 1.5 H Anion Gap 13 Estim Creat Clear Calc 240.0 Estimated GFR > 60 POC Glucose 90 Random Glucose 87 Calcium 7.6 L Magnesium 1.7 Total Bilirubin 26.1 H Direct Bilirubin 19.7 H AST 216 H ALT 45 H Alkaline Phosphatase 190 H Total Protein 5.3 L Albumin 2.6 L Ceruloplasmin IgG Total IgA Total IgM LENNY Screen Tiss Transglutamin IgG Tiss Transglutamin IgA Anti-Gliadin IgG Ab Gliadin (Deamidat) IgA 07/14/21 11:03 PT INR Anion Gap Estim Creat Clear Calc Estimated GFR POC Glucose 134 H Random Glucose Calcium Magnesium Total Bilirubin Direct Bilirubin AST ALT Alkaline Phosphatase Total Protein Albumin Ceruloplasmin IgG Total IgA Total IgM LENNY Screen Tiss Transglutamin IgG Tiss Transglutamin IgA Anti-Gliadin IgG Ab Gliadin (Deamidat) IgA Assessment and Plan (1) Alcoholic hepatitis: Status: Acute (2) Cholestatic jaundice: Status: Acute (3) Lactic acid acidosis: Status: Acute Assessment and Plan: hospital d#5 35yo M with alcohol use disorder complicated by past episodes of hepatitis, pancreatitis, and withdrawal presenting with RUQ pain and severe cholestatic jaundice. # cholestatic jaundice - reviewed HIDA + MRCP with GI + Gen Surg and this is all likely due to EtOH hepatitis. switched pentoxyfilline to steroids, methylprednisolone 32 mg IV daily day 09/24 (change to PO prednisolone upon discharge). monitor LFTs. serologic workup ordered by GI # EtOH intoxication with high-risk withdrawal - phenobarbital taper and vitamin supplementation; consulting CARE Team and Addiction Medicine # lactic acidosis - doubt sepsis, suspect due to dehydration/EtOH + impaired clearance from hepatic dysfunction # hypoK - repleted # hypoMg - repleted # pancytopenia - mild, likely due to myelosuppression from EtOH # HTN - continue amlodipine # DM2, A1c 9.2 - correction-dose lispro # anxiety - continue escitalopram # VTE ppx - LMWH # code - full Quality Stroke Does the patient have a stroke diagnosis?: No VTE Prior VTE?: No VTE Risk Level:: Medical - moderate - high VTE Device Contraindication: N/A - Device Ordered VTE Drug Contraindication: N/A - Med Ordered
[2021-07-14] MEDS: Enoxaparin Sodium 40 MG/0.4 ML SYRINGE SUBCUT (15:42)
[2021-07-14 15:49] VITALS: BP 118/69; PULSE 98; RESP 18; TEMP 37.1; O2SAT 93
[2021-07-14 16:31] LABS: Glucose, Whole Blood 184 mg/dL (60-115)
[2021-07-14] MEDS: Insulin Lispro 100 UNIT/ML 3 ML VIAL SUBCUT (16:43)
[2021-07-14 20:00] VITALS: BP 131/75; PULSE 98; RESP 18; TEMP 37.2; O2SAT 96
[2021-07-14 20:19] LABS: Glucose, Whole Blood 149 mg/dL (60-115)
[2021-07-15] VITALS (9 sets, daily range): BP systolic 119–129; BP diastolic 66–79; PULSE 81–101; RESP 15–22; TEMP 36.2–38; O2SAT 92–95
[2021-07-15] MEDS: Lactated Ringers 1,000 ML 125 ML IVCONT (03:58)
[2021-07-15] MEDS: Morphine Sulfate 2 MG/ML CARTRIDGE IVPUSH ×4 (04:01→21:34)
[2021-07-15 07:12] LABS: INTERNATIONAL NORM RATIO 1.5 (0.9-1.1); Prothrombin Time 17.3 SEC (9.9-13.0)
[2021-07-15 07:29] LABS: Alanine Aminotransferase 45 U/L (0-40); Albumin Level 2.4 g/dL (3.5-5.0); Alkaline Phosphatase 165 U/L (39-117); Anion Gap 11 (12-20); Aspartate Amino Transferase 200 U/L (5-37); Blood Urea Nitrogen 5 mg/dL (9-16); Calcium 7.4 mg/dL (8.4-10.2); Carbon Dioxide 24 mmol/L (22-29); Chloride 103 mmol/L (96-108); Creatinine Clr Calc Pharmacy 253.6; Estimated Glomerular Filt Rate > 60; Glucose Random 83 mg/dL (60-115); Magnesium 1.6 mg/dL (1.6-2.6); Sodium 135 mmol/L (135-145); Total Protein 4.8 g/dL (6.5-8.0)
[2021-07-15 07:38] LABS: Bilirubin Total 22.9 mg/dL (0.0-1.0)
[2021-07-15 07:44] LABS: Glucose, Whole Blood 81 mg/dL (60-115)
[2021-07-15] MEDS: Potassium Chloride ER 20 MEQ TAB.ER.PRT 40 MEQ PO (09:26)
[2021-07-15] MEDS: PHENobarbitaL 30 MG TABLET PO (09:26)
[2021-07-15] MEDS: ondansetron HCL 4 MG/2 ML VIAL IVPUSH ×2 (09:27→21:34)
[2021-07-15] MEDS: Folic Acid 1 MG TABLET PO (09:27)
[2021-07-15] MEDS: Multivitamin TABLET 1 TAB PO (09:27)
[2021-07-15] MEDS: Thiamine HCL 100 MG TABLET PO (09:27)
[2021-07-15] MEDS: 0.9 % Sodium Chloride Flush 3 ML SYRINGE IVFLUSH ×3 (09:27→21:35)
[2021-07-15] MEDS: Escitalopram Oxalate 10 MG TABLET PO (09:27)
[2021-07-15] MEDS: amLODIPine Besylate 5 MG TABLET PO (09:27)
[2021-07-15] MEDS: methylPREDNISolone Sod Succ 40 MG/ML VIAL 32 MG IVPUSH (09:42)
[2021-07-15 11:33] LABS: Glucose, Whole Blood 140 mg/dL (60-115)
--- NOTE | 2021-07-15 12:14 | HO.PM.IMPN ---
Subjective Subjective Date of Service: 07/15/21 Interval History: RUQ pain improved Tolerating diet No fever No diarrhea No melena or hematochezia Review of Systems Review of Systems: Yes all other systems are reviewed and are negative Physical Exam Vital Signs: Vital Signs: Last Vital Signs Temp 98.8 F 07/15/21 11:03 Pulse 101 H 07/15/21 11:03 Resp 18 07/15/21 11:03 BP 129/79 07/15/21 11:03 Pulse Ox 93 07/15/21 11:03 BMI result Body Mass Index 34.7 Gen: NAD HEENT: sclera icteric, moist mucus membranes Neck: supple Lungs: clear to auscultation bilaterally Heart: tachycardic, no murmurs Abd: soft, RUQ tender without rebound, non-distended Ext: no edema Skin: warm/well-perfused, jaundiced Neuro: alert and oriented x3, no focal findings, no asterixis Psych: appropriate affect Objective Data Active Medications Amlodipine Besylate (Amlodipine Besylate 5 Mg Tablet) 5 mg PO DAILY [facility]; Protocol Last Admin: 07/15/21 09:27 Dose: 5 mg Documented by: THEO Dextrose (Dextrose 50 % 25 Gm/50 Ml Vial) 25 gm IVPUSH Q15M PRN; Protocol PRN Reason: per Hypoglycemia Standing Ord. Enoxaparin Sodium (Enoxaparin Sodium 40 Mg/0.4 Ml Syringe) 40 mg SUBCUT Q24H [facility] Last Admin: 07/14/21 15:42 Dose: 40 mg Documented by: PITA Escitalopram Oxalate (Escitalopram Oxalate 10 Mg Tablet) 10 mg PO DAILY [facility] Last Admin: 07/15/21 09:27 Dose: 10 mg Documented by: THEO Folic Acid (Folic Acid 1 Mg Tablet) 1 mg PO DAILY [facility] Last Admin: 07/15/21 09:27 Dose: 1 mg Documented by: THEO Glucose (Glucose Gel 15 Gm Gel..Gram.) 15 gm PO Q15M PRN; Protocol PRN Reason: per Hypoglycemia Standing Ord. Lactated Ringer's (Lr) 1,000 mls @ 125 mls/hr IVCONT .Q8H [facility] Last Admin: 07/15/21 03:58 Dose: 125 mls/hr Documented by: OCTAVIA Insulin Human Lispro (Insulin Lispro 100 Unit/Ml 3 Ml Vial) 0 unit SUBCUT QIDACHS [facility]; Protocol Last Admin: 07/15/21 07:21 Dose: Not Given Documented by: THEO Non-Admin Reason: No Insulin Coverage Medication (No Benzodiazepines) 1 each MISCELLANE DAILY [facility] Methylprednisolone Sodium Succinate (Methylprednisolone Sod Succ 40 Mg/Ml Vial) 32 mg IVPUSH Q24H [facility] Last Admin: 07/15/21 09:42 Dose: 32 mg Documented by: THEO Morphine Sulfate (Morphine Sulfate 2 Mg/Ml Cartridge) 2 mg IVPUSH Q2H PRN; Protocol PRN Reason: severe pain Last Admin: 07/15/21 09:27 Dose: 2 mg Documented by: THEO Multivitamins/Vitamin C (Multivitamin Tablet) 1 tab PO DAILY [facility] Last Admin: 07/15/21 09:27 Dose: 1 tab Documented by: THEO Omeprazole (Omeprazole 20 Mg Capsule.Dr) 20 mg PO DAILY@0630 PRN PRN Reason: gerd Ondansetron HCl (Ondansetron Hcl 4 Mg/2 Ml Vial) 4 mg IVPUSH Q8H PRN PRN Reason: Nausea and Vomiting Last Admin: 07/15/21 09:27 Dose: 4 mg Documented by: THEO Oxycodone HCl (Oxycodone Hcl Immed Release 5 Mg Tablet) 5 mg PO Q4H PRN PRN Reason: moderate pain Pharmacy Consult (Consult Rx Perform Med Rec) 1 each MISCELLANE ONCE PRN PRN Reason: Consult order Phenobarbital (Phenobarbital 30 Mg Tablet) 30 mg PO DAILY [facility]; Protocol Stop: 07/16/21 09:01 Last Admin: 07/15/21 09:26 Dose: 30 mg Documented by: THEO Sodium Chloride (0.9 % Sodium Chloride Flush 3 Ml Syringe) 3 ml IVFLUSH QSHIFT [facility] Last Admin: 07/15/21 09:27 Dose: 3 ml Documented by: THEO Thiamine HCl (Thiamine Hcl 100 Mg Tablet) 100 mg PO DAILY [facility] Last Admin: 07/15/21 09:27 Dose: 100 mg Documented by: THEO Labs CBC & Chem 7: 07/13/21 05:51 07/15/21 06:18 Labs: Laboratory Results - last 24 hr 07/10/21 07/14/21 07/14/21 19:49 16:20 20:15 PT INR Anion Gap Estim Creat Clear Calc Estimated GFR POC Glucose 184 H 149 H Random Glucose Calcium Magnesium Total Bilirubin AST ALT Alkaline Phosphatase Total Protein Albumin LENNY Titer TNP LENNY Titer 2 TNP LENNY Titer 3 TNP LENNY Pattern TNP ELNNY Pattern 2 TNP LENNY Pattern 3 TNP 07/15/21 07/15/21 07/15/21 06:18 06:18 07:23 PT 17.3 H INR 1.5 H Anion Gap 11 L Estim Creat Clear Calc 253.6 Estimated GFR > 60 POC Glucose 81 Random Glucose 83 Calcium 7.4 L Magnesium 1.6 Total Bilirubin 22.9 H AST 200 H ALT 45 H Alkaline Phosphatase 165 H Total Protein 4.8 L Albumin 2.4 L LENNY Titer LENNY Titer 2 LENNY Titer 3 LENNY Pattern LENNY Pattern 2 LENNY Pattern 3 07/15/21 11:03 PT INR Anion Gap Estim Creat Clear Calc Estimated GFR POC Glucose 140 H Random Glucose Calcium Magnesium Total Bilirubin AST ALT Alkaline Phosphatase Total Protein Albumin LENNY Titer LENNY Titer 2 LENNY Titer 3 LENNY Pattern LENNY Pattern 2 LENNY Pattern 3 Assessment and Plan (1) Alcoholic hepatitis: Status: Acute (2) Cholestatic jaundice: Status: Acute (3) Lactic acid acidosis: Status: Acute Assessment and Plan: hospital d#6 35yo M with alcohol use disorder complicated by past episodes of hepatitis, pancreatitis, and withdrawal presenting with RUQ pain and severe cholestatic jaundice. # cholestatic jaundice - reviewed HIDA + MRCP with GI + Gen Surg and this is all likely due to EtOH hepatitis. switched pentoxyfilline to steroids; on methylprednisolone 32 mg IV daily day #10/22 (will change to PO prednisolone upon discharge). monitor LFTs daily. serologic workup ordered by GI # EtOH intoxication with high-risk withdrawal - continue phenobarbital taper and vitamin supplementation; consulting CARE Team and Addiction Medicine # lactic acidosis - doubt sepsis, suspect due to dehydration/EtOH + impaired clearance from hepatic dysfunction # hypoK - replete, recheck in AM # hypoMg - repleted # pancytopenia - mild, likely due to myelosuppression from EtOH # HTN - continue amlodipine # DM2, A1c 9.2 - correction-dose lispro # anxiety - continue escitalopram # VTE ppx - LMWH # code - full Quality Stroke Does the patient have a stroke diagnosis?: No VTE Prior VTE?: No VTE Risk Level:: Medical - moderate - high VTE Device Contraindication: N/A - Device Ordered VTE Drug Contraindication: N/A - Med Ordered
[2021-07-15] MEDS: Enoxaparin Sodium 40 MG/0.4 ML SYRINGE SUBCUT (15:21)
[2021-07-15 16:18] LABS: Glucose, Whole Blood 166 mg/dL (60-115)
[2021-07-15] MEDS: Insulin Lispro 100 UNIT/ML 3 ML VIAL SUBCUT (17:10)
[2021-07-15 20:58] LABS: Glucose, Whole Blood 115 mg/dL (60-115)
[2021-07-16] VITALS (10 sets, daily range): BP systolic 111–132; BP diastolic 60–78; PULSE 87–97; RESP 16–18; TEMP 36.6–37.2; O2SAT 93–98
[2021-07-16] MEDS: Morphine Sulfate 2 MG/ML CARTRIDGE IVPUSH ×4 (03:13→23:17)
[2021-07-16 06:05] LABS: Hematocrit 31.4 % (42.0-52.0); Hemoglobin 10.6 g/dl (14.0-18.0); Mean Corpuscular HGB Conc 33.8 g/dl (31.0-36.0); Mean Corpuscular Hemoglobin 35.8 pg (27.0-33.0); Mean Corpuscular Volume 106.1 fL (80.0-98.0); Mean Platelet Volume 9.8 fL (9.4-12.4); NRBC Pct Auto 0.3 /100WBC (0.0-0.2); Platelet Count 184 X10*3/uL (160-400); Red Blood Count 2.96 X10*6/uL (4.60-5.80); Red Cell Distribution Width 17.9 % (11.0-16.0); White Blood Count 5.8 X10*3/uL (4.8-10.8)
[2021-07-16 06:24] LABS: Alanine Aminotransferase 57 U/L (0-40); Albumin Level 2.6 g/dL (3.5-5.0); Alkaline Phosphatase 171 U/L (39-117); Anion Gap 12 (12-20); Aspartate Amino Transferase 220 U/L (5-37); Blood Urea Nitrogen 4 mg/dL (9-16); Calcium 7.5 mg/dL (8.4-10.2); Carbon Dioxide 24 mmol/L (22-29); Chloride 100 mmol/L (96-108); Estimated Glomerular Filt Rate > 60; Glucose Random 98 mg/dL (60-115); Sodium 133 mmol/L (135-145); Total Protein 5.1 g/dL (6.5-8.0)
[2021-07-16 06:46] LABS: Bilirubin Total 24.1 mg/dL (0.0-1.0)
[2021-07-16 07:15] LABS: Glucose, Whole Blood 102 mg/dL (60-115)
[2021-07-16] MEDS: 0.9 % Sodium Chloride Flush 3 ML SYRINGE IVFLUSH ×3 (07:38→23:17)
[2021-07-16] MEDS: PHENobarbitaL 30 MG TABLET PO (07:38)
[2021-07-16] MEDS: Multivitamin TABLET 1 TAB PO (07:38)
[2021-07-16] MEDS: amLODIPine Besylate 5 MG TABLET PO (07:39)
[2021-07-16] MEDS: Thiamine HCL 100 MG TABLET PO (07:39)
[2021-07-16] MEDS: Folic Acid 1 MG TABLET PO (07:39)
[2021-07-16] MEDS: Escitalopram Oxalate 10 MG TABLET PO (07:39)
[2021-07-16] MEDS: ondansetron HCL 4 MG/2 ML VIAL IVPUSH ×2 (07:50→17:00)
[2021-07-16] MEDS: methylPREDNISolone Sod Succ 40 MG/ML VIAL 32 MG IVPUSH (09:23)
[2021-07-16 11:03] LABS: Glucose, Whole Blood 140 mg/dL (60-115)
--- NOTE | 2021-07-16 14:12 | P.PNIM_ITS ---
Subjective Subjective Date of Service: 07/16/21 Interval History: Being followed for alcoholic hepatitis complaining of abdominal pain and loose bowel movement, tolerating diet, no nausea, no vomiting. Review of Systems Review of Systems: Yes all other systems are reviewed and are negative Physical Exam Vital Signs: Vital Signs: Last Vital Signs Temp 98.7 F 07/16/21 11:23 Pulse 97 07/16/21 11:23 Resp 18 07/16/21 11:23 BP 123/68 07/16/21 11:23 Pulse Ox 93 07/16/21 11:23 BMI result Body Mass Index 34.7 Gen: Awake alert x3, no acute distress Icteric sclera Neck: supple, no JVD Lungs: clear to auscultation bilaterally Heart: tachycardic, no murmurs Abd: soft, mild RUQ tenderness without rebound, non-distended Ext: Nonpitting edema Skin: jaundiced Neuro: alert and oriented x3, no focal findings, no asterixis Psych: appropriate affect ? Objective Data Active Medications Amlodipine Besylate (Amlodipine Besylate 5 Mg Tablet) 5 mg PO DAILY [facility]; Protocol Last Admin: 07/16/21 07:39 Dose: 5 mg Documented by: DAMION Dextrose (Dextrose 50 % 25 Gm/50 Ml Vial) 25 gm IVPUSH Q15M PRN; Protocol PRN Reason: per Hypoglycemia Standing Ord. Enoxaparin Sodium (Enoxaparin Sodium 40 Mg/0.4 Ml Syringe) 40 mg SUBCUT Q24H [facility] Last Admin: 07/15/21 15:21 Dose: 40 mg Documented by: THEO Escitalopram Oxalate (Escitalopram Oxalate 10 Mg Tablet) 10 mg PO DAILY [facility] Last Admin: 07/16/21 07:39 Dose: 10 mg Documented by: DAMION Folic Acid (Folic Acid 1 Mg Tablet) 1 mg PO DAILY [facility] Last Admin: 07/16/21 07:39 Dose: 1 mg Documented by: DAMION Glucose (Glucose Gel 15 Gm Gel..Gram.) 15 gm PO Q15M PRN; Protocol PRN Reason: per Hypoglycemia Standing Ord. Lactated Ringer's (Lr) 1,000 mls @ 125 mls/hr IVCONT .Q8H [facility] Last Admin: 07/16/21 14:11 Dose: Not Given Documented by: DAMION Non-Admin Reason: Physician Approved Insulin Human Lispro (Insulin Lispro 100 Unit/Ml 3 Ml Vial) 0 unit SUBCUT QIDACHS [facility]; Protocol Last Admin: 07/16/21 11:08 Dose: Not Given Documented by: DAMION Non-Admin Reason: No Insulin Coverage Medication (No Benzodiazepines) 1 each MISCELLANE DAILY [facility] Methylprednisolone Sodium Succinate (Methylprednisolone Sod Succ 40 Mg/Ml Vial) 32 mg IVPUSH Q24H [facility] Last Admin: 07/16/21 09:23 Dose: 32 mg Documented by: DAMION Morphine Sulfate (Morphine Sulfate 2 Mg/Ml Cartridge) 2 mg IVPUSH Q2H PRN; Protocol PRN Reason: severe pain Last Admin: 07/16/21 07:50 Dose: 2 mg Documented by: DAMION Multivitamins/Vitamin C (Multivitamin Tablet) 1 tab PO DAILY [facility] Last Admin: 07/16/21 07:38 Dose: 1 tab Documented by: DAMION Omeprazole (Omeprazole 20 Mg Capsule.Dr) 20 mg PO DAILY@0630 PRN PRN Reason: gerd Ondansetron HCl (Ondansetron Hcl 4 Mg/2 Ml Vial) 4 mg IVPUSH Q8H PRN PRN Reason: Nausea and Vomiting Last Admin: 07/16/21 07:50 Dose: 4 mg Documented by: DAMION Oxycodone HCl (Oxycodone Hcl Immed Release 5 Mg Tablet) 5 mg PO Q4H PRN PRN Reason: moderate pain Pharmacy Consult (Consult Rx Perform Med Rec) 1 each MISCELLANE ONCE PRN PRN Reason: Consult order Sodium Chloride (0.9 % Sodium Chloride Flush 3 Ml Syringe) [address] [facility] Last Admin: 07/16/21 07:38 Dose: 3 ml Documented by: DAMION Thiamine HCl (Thiamine Hcl 100 Mg Tablet) 100 mg PO DAILY [facility] Last Admin: 07/16/21 07:39 Dose: 100 mg Documented by: DAMION Labs CBC & Chem 7: 07/16/21 05:27 07/16/21 05:27 Labs: Laboratory Results - last 24 hr 07/15/21 07/15/21 07/16/21 16:14 20:54 05:27 MCV 106.1 H MCH 35.8 H MCHC 33.8 RDW 17.9 H Plt Count 184 D MPV 9.8 Absolute Nucleated RBC 0.020 H Nucleated RBC % (auto) 0.3 H Anion Gap Estim Creat Clear Calc Estimated GFR POC Glucose 166 H 115 Random Glucose Calcium Total Bilirubin AST ALT Alkaline Phosphatase Total Protein Albumin 07/16/21 07/16/21 07/16/21 05:27 07:12 10:59 MCV MCH MCHC RDW Plt Count MPV Absolute Nucleated RBC Nucleated RBC % (auto) Anion Gap 12 Estim Creat Clear Calc 240.0 Estimated GFR > 60 POC Glucose 102 140 H Random Glucose 98 Calcium 7.5 L Total Bilirubin 24.1 H AST 220 H ALT 57 H Alkaline Phosphatase 171 H Total Protein 5.1 L Albumin 2.6 L Microbiology Microbiology Results: Microbiology 07/10/21 12:04 Blood Culture - Final Blood - Venous No growth after 5 days. 07/10/21 12:04 Blood Culture - Final Blood - Venous No growth after 5 days. Assessment and Plan (1) Cholestatic jaundice: Status: Acute (2) Acute alcoholic hepatitis: Status: Acute (3) Hypokalemia: Status: Acute Assessment and Plan: hospital d#6 35yo M with alcohol use disorder complicated by past episodes of hepatitis, pancreatitis, and withdrawal presenting with RUQ pain and severe cholestatic jaundice. # cholestatic jaundice ?- from alcoholic hepatitis, HIDA + MRCP not suggestive of any other pathology Seen by gastroenterology and General surgery Continue IV methylprednisolone 32 mg IV daily day #11/22 (will change to PO prednisolone upon discharge).? LFTs remains elevated total bili went up from 22 to 24, continue to follow liver profile, hepatitis serology negative. # EtOH intoxication with high-risk withdrawal - finish phenobarbital ,await CARE Team eval # lactic acidosis - doubt sepsis, suspect due to dehydration/EtOH + impaired clearance from hepatic dysfunction # hypoK - potassium remains low at 3 will replete and recheck BMP at a.m. # hypoMg - repleted magnesium 1.6 # pancytopenia - mild, likely due to myelosuppression from EtOH # HTN - stable blood pressure, continue amlodipine # DM2, A1c 9.2 - stable blood sugar 140 correction-dose lispro # anxiety - continue escitalopram # VTE ppx - LMWH # code - full Quality Stroke Does the patient have a stroke diagnosis?: No VTE Prior VTE?: No VTE Risk Level:: Medical - moderate - high VTE Device Contraindication: N/A - Device Ordered VTE Drug Contraindication: N/A - Med Ordered
[2021-07-16] MEDS: Enoxaparin Sodium 40 MG/0.4 ML SYRINGE SUBCUT (14:25)
[2021-07-16] MEDS: Potassium Chloride ER 20 MEQ TAB.ER.PRT 40 MEQ PO (14:25)
--- NOTE | 2021-07-16 14:59 | MHC.CM.PN ---
per rounds no expec linda dc date at this time pts bilirubin is up
[2021-07-16 16:29] LABS: Glucose, Whole Blood 171 mg/dL (60-115)
[2021-07-16] MEDS: Insulin Lispro 100 UNIT/ML 3 ML VIAL SUBCUT (17:00)
--- NOTE | 2021-07-16 18:57 | MHC.RECOVSUP ---
Met with Pt. seems to be in a better mood. He states that he feels better also stated that his parents are going to his apartment and clean it for him.Pt. wants to engage in his recovery I still encourage him to seek out the information I gave him earlier this week Also stated that he would like to be home for the holidays.
[2021-07-16 20:28] LABS: Glucose, Whole Blood 150 mg/dL (60-115)
[2021-07-17] VITALS (8 sets, daily range): BP systolic 110–144; BP diastolic 64–75; PULSE 86–98; RESP 16–18; TEMP 36.1–37.1; O2SAT 92–97
[2021-07-17 07:24] LABS: Glucose, Whole Blood 97 mg/dL (60-115)
[2021-07-17 07:32] LABS: Alanine Aminotransferase 60 U/L (0-40); Albumin Level 2.5 g/dL (3.5-5.0); Alkaline Phosphatase 161 U/L (39-117); Anion Gap 13 (12-20); Aspartate Amino Transferase 204 U/L (5-37); Bilirubin Direct 17.6 mg/dL (0.0-0.5); Blood Urea Nitrogen 4 mg/dL (9-16); Calcium 7.4 mg/dL (8.4-10.2); Carbon Dioxide 23 mmol/L (22-29); Chloride 102 mmol/L (96-108); Creatinine Clr Calc Pharmacy 244.4; Estimated Glomerular Filt Rate > 60; Glucose Random 95 mg/dL (60-115); Sodium 135 mmol/L (135-145)
[2021-07-17] MEDS: amLODIPine Besylate 5 MG TABLET PO (08:15)
[2021-07-17] MEDS: Potassium Chloride ER 20 MEQ TAB.ER.PRT 40 MEQ PO (08:15)
[2021-07-17] MEDS: ondansetron HCL 4 MG/2 ML VIAL IVPUSH (08:16)
[2021-07-17] MEDS: Escitalopram Oxalate 10 MG TABLET PO (08:16)
[2021-07-17] MEDS: Folic Acid 1 MG TABLET PO (08:16)
[2021-07-17] MEDS: Morphine Sulfate 2 MG/ML CARTRIDGE IVPUSH (08:16)
[2021-07-17] MEDS: Multivitamin TABLET 1 TAB PO (08:16)
[2021-07-17] MEDS: Thiamine HCL 100 MG TABLET PO (08:16)
[2021-07-17] MEDS: 0.9 % Sodium Chloride Flush 3 ML SYRINGE IVFLUSH ×2 (08:18→15:26)
[2021-07-17] MEDS: methylPREDNISolone Sod Succ 40 MG/ML VIAL 32 MG IVPUSH (10:56)
--- NOTE | 2021-07-17 11:26 | HO.PM.IMPN ---
Subjective Subjective Date of Service: 07/17/21 Interval History: Feels better this morning, abdominal pain is more localized to epigastric area, no nausea no vomiting, stools are more formed, urine is watch parts inspector color, complaining of lower extremity edema. Denies fever chills, no headache, no dizziness. Review of Systems Review of Systems: Yes all other systems are reviewed and are negative Physical Exam Vital Signs: Vital Signs: Last Vital Signs Temp 97.0 F 07/17/21 08:00 Pulse 98 07/17/21 08:15 Resp 16 07/17/21 08:16 BP 144/74 H 07/17/21 08:15 Pulse Ox 95 07/17/21 08:00 BMI result Body Mass Index 34.7 Gen:? Awake alert x3, no acute distress Icteric sclera Neck: supple, no JVD Lungs: clear to auscultation bilaterally Heart: Regular rate rhythm,no murmurs Abd: soft, mild epigastric tenderness, bowel sounds audible , non-distended Ext:? Bilateral edema Skin:? jaundiced Neuro: alert and oriented x3, no focal findings, no asterixis Psych: appropriate affect ? Objective Data Active Medications Amlodipine Besylate (Amlodipine Besylate 5 Mg Tablet) 5 mg PO DAILY [facility]; Protocol Last Admin: 07/17/21 08:15 Dose: 5 mg Documented by: DAMION Dextrose (Dextrose 50 % 25 Gm/50 Ml Vial) 25 gm IVPUSH Q15M PRN; Protocol PRN Reason: per Hypoglycemia Standing Ord. Enoxaparin Sodium (Enoxaparin Sodium 40 Mg/0.4 Ml Syringe) 40 mg SUBCUT Q24H [facility] Last Admin: 07/16/21 14:25 Dose: 40 mg Documented by: DAMION Escitalopram Oxalate (Escitalopram Oxalate 10 Mg Tablet) 10 mg PO DAILY [facility] Last Admin: 07/17/21 08:16 Dose: 10 mg Documented by: DAMION Famotidine (Famotidine 20 Mg Tablet) 20 mg PO DAILY [facility] Folic Acid (Folic Acid 1 Mg Tablet) 1 mg PO DAILY [facility] Last Admin: 07/17/21 08:16 Dose: 1 mg Documented by: DAMION Furosemide (Furosemide 20 Mg/2 Ml Vial) 20 mg IVPUSH ONCE ONE; Protocol Stop: 07/17/21 11:23 Glucose (Glucose Gel 15 Gm Gel..Gram.) 15 gm PO Q15M PRN; Protocol PRN Reason: per Hypoglycemia Standing Ord. Insulin Human Lispro (Insulin Lispro 100 Unit/Ml 3 Ml Vial) 0 unit SUBCUT QIDACHS [facility]; Protocol Last Admin: 07/17/21 07:31 Dose: Not Given Documented by: DAMION Non-Admin Reason: No Insulin Coverage Medication (No Benzodiazepines) 1 each MISCELLANE DAILY [facility] Methylprednisolone Sodium Succinate (Methylprednisolone Sod Succ 40 Mg/Ml Vial) 32 mg IVPUSH Q24H [facility] Last Admin: 07/17/21 10:56 Dose: 32 mg Documented by: DAMION Multivitamins/Vitamin C (Multivitamin Tablet) 1 tab PO DAILY [facility] Last Admin: 07/17/21 08:16 Dose: 1 tab Documented by: DAMION Omeprazole (Omeprazole 20 Mg Capsule.Dr) 20 mg PO DAILY@0630 PRN PRN Reason: gerd Ondansetron HCl (Ondansetron Hcl 4 Mg/2 Ml Vial) 4 mg IVPUSH Q8H PRN PRN Reason: Nausea and Vomiting Last Admin: 07/17/21 08:16 Dose: 4 mg Documented by: DAMION Oxycodone HCl (Oxycodone Hcl Immed Release 5 Mg Tablet) 5 mg PO Q4H PRN PRN Reason: moderate pain Pharmacy Consult (Consult Rx Perform Med Rec) 1 each MISCELLANE ONCE PRN PRN Reason: Consult order Potassium Chloride (Potassium Chloride Er 20 Meq Tab.Er.Prt) 60 meq PO ONCE ONE Stop: 07/17/21 11:23 Sodium Chloride (0.9 % Sodium Chloride Flush 3 Ml Syringe) 3 ml IVFLUSH QSHIFT [facility] Last Admin: 07/17/21 08:18 Dose: 3 ml Documented by: DAMION Thiamine HCl (Thiamine Hcl 100 Mg Tablet) 100 mg PO DAILY [facility] Last Admin: 07/17/21 08:16 Dose: 100 mg Documented by: DAMION Labs CBC & Chem 7: 07/16/21 05:27 07/17/21 06:02 Labs: Laboratory Results - last 24 hr 07/16/21 07/16/21 07/17/21 16:15 20:25 06:02 Anion Gap 13 Estim Creat Clear Calc 244.4 Estimated GFR > 60 POC Glucose 171 H 150 H Random Glucose 95 Calcium 7.4 L Total Bilirubin 23.0 H Direct Bilirubin 17.6 H AST 204 H ALT 60 H Alkaline Phosphatase 161 H Total Protein 5.0 L Albumin 2.5 L 07/17/21 07:21 Anion Gap Estim Creat Clear Calc Estimated GFR POC Glucose 97 Random Glucose Calcium Total Bilirubin Direct Bilirubin AST ALT Alkaline Phosphatase Total Protein Albumin Assessment and Plan (1) Hypokalemia: Status: Acute (2) Alcoholic hepatitis: Status: Acute (3) Cholestatic jaundice: Status: Acute (4) Acute alcoholic hepatitis: Status: Acute Assessment and Plan: 35yo M with alcohol use disorder complicated by past episodes of hepatitis, pancreatitis, and withdrawal presenting with RUQ pain and severe cholestatic jaundice. # cholestatic jaundice ?- from alcoholic hepatitis,? HIDA + MRCP not suggestive of any other pathology ?? Seen by gastroenterology and General surgery ?? Continue IV methylprednisolone 32 mg IV daily day #12/22 (will change to PO prednisolone upon discharge).? ?? LFTs remains elevated total bili 23 down from 24, continue to follow liver profile, hepatitis serology negative. Immunological studies showed normal LENNY, IgA elevated 710, soluble liver antigen pending recommend outpatient follow-up with GI. Noted to have bilateral lower extremity edema likely from IV fluid, low albumin, will give 1 dose of IV Lasix and continue protein supplement # EtOH intoxication with high-risk withdrawal - finish phenobarbital protocol , seen by care team referrals given. # lactic acidosis - doubt sepsis, suspect due to dehydration/EtOH + impaired clearance from hepatic dysfunction # hypoK - potassium remains low at 3 will replete and recheck BMP at a.m. # hypoMg - repleted magnesium 1.6 # pancytopenia - mild, likely due to myelosuppression from EtOH # HTN - stable blood pressure, continue amlodipine # DM2, A1c 9.2 - stable blood sugar, correction-dose lispro # anxiety - continue escitalopram # VTE ppx - LMWH # code - full Quality Stroke Does the patient have a stroke diagnosis?: No VTE Prior VTE?: No VTE Risk Level:: Medical - moderate - high VTE Device Contraindication: N/A - Device Ordered VTE Drug Contraindication: N/A - Med Ordered
[2021-07-17 11:48] LABS: Glucose, Whole Blood 125 mg/dL (60-115)
[2021-07-17] MEDS: Furosemide 20 MG/2 ML VIAL IVPUSH (13:01)
[2021-07-17] MEDS: Potassium Chloride ER 20 MEQ TAB.ER.PRT 60 MEQ PO (13:01)
[2021-07-17] MEDS: oxyCODONE HCl Immed Release 5 MG TABLET PO ×2 (13:12→20:16)
[2021-07-17] MEDS: Enoxaparin Sodium 40 MG/0.4 ML SYRINGE SUBCUT (15:26)
[2021-07-17 16:41] LABS: Glucose, Whole Blood 151 mg/dL (60-115)
[2021-07-17] MEDS: Insulin Lispro 100 UNIT/ML 3 ML VIAL SUBCUT (16:47)
[2021-07-17] MEDS: Magnesium Oxide 400 MG TABLET PO (16:47)
[2021-07-17 17:40] LABS: Anion Gap 14 (12-20); Carbon Dioxide 26 mmol/L (22-29); Chloride 98 mmol/L (96-108); Sodium 134 mmol/L (135-145)
[2021-07-17 21:01] LABS: Glucose, Whole Blood 149 mg/dL (60-115)
[2021-07-18] MEDS: 0.9 % Sodium Chloride Flush 3 ML SYRINGE IVFLUSH ×2 (00:24→09:21)
[2021-07-18 04:00] VITALS: BP 130/71; PULSE 102; RESP 20; TEMP 36.9; O2SAT 98
[2021-07-18 06:50] LABS: Alanine Aminotransferase 65 U/L (0-40); Albumin Level 2.6 g/dL (3.5-5.0); Alkaline Phosphatase 159 U/L (39-117); Anion Gap 13 (12-20); Aspartate Amino Transferase 197 U/L (5-37); Blood Urea Nitrogen 4 mg/dL (9-16); Calcium 7.4 mg/dL (8.4-10.2); Carbon Dioxide 25 mmol/L (22-29); Chloride 101 mmol/L (96-108); Creatinine Clr Calc Pharmacy 227.8; Estimated Glomerular Filt Rate > 60; Glucose Random 108 mg/dL (60-115); Potassium 3.1 mmol/L (3.3-5.1); Sodium 136 mmol/L (135-145)
[2021-07-18 07:04] LABS: Bilirubin Direct 18.7 mg/dL (0.0-0.5); Bilirubin Total 23.5 mg/dL (0.0-1.0)
[2021-07-18 07:15] VITALS: BP 125/66; PULSE 98; RESP 20; TEMP 37; O2SAT 95
[2021-07-18 07:53] LABS: Glucose, Whole Blood 102 mg/dL (60-115)
[2021-07-18] MEDS: methylPREDNISolone Sod Succ 40 MG/ML VIAL 32 MG IVPUSH (09:21)
[2021-07-18 09:22] VITALS: BP 125/66; PULSE 98
[2021-07-18] MEDS: Folic Acid 1 MG TABLET PO (09:22)
[2021-07-18] MEDS: amLODIPine Besylate 5 MG TABLET PO (09:22)
[2021-07-18] MEDS: Escitalopram Oxalate 10 MG TABLET PO (09:22)
[2021-07-18] MEDS: Thiamine HCL 100 MG TABLET PO (09:22)
[2021-07-18] MEDS: Famotidine 20 MG TABLET PO (09:22)
[2021-07-18] MEDS: Multivitamin TABLET 1 TAB PO (09:22)
[2021-07-18] MEDS: Magnesium Oxide 400 MG TABLET PO (09:22)
[2021-07-18] MEDS: Potassium Chloride ER 20 MEQ TAB.ER.PRT 60 MEQ PO (09:37)
[2021-07-18 11:02] VITALS: BP 125/72; PULSE 94; RESP 20; TEMP 37.3; O2SAT 93
--- NOTE | 2021-07-18 11:19 | MHC.CM.PN ---
pt dcd home no skilled services ordered by
[2021-07-18 11:27] LABS: Glucose, Whole Blood 156 mg/dL (60-115)
[2021-07-18] MEDS: Insulin Lispro 100 UNIT/ML 3 ML VIAL SUBCUT (11:34)
--- NOTE | 2021-07-18 17:56 | P.DS_ITS ---
DS: Providers Provider Date of Service: 07/18/21 Date of admission: 07/10/21 14:52 Primary care physician: John Penny MD Consults: 07/10/21 13:18 Consult to General Surgery Stat Consulting Provider: Bayron Pfeiffer Reason for consultation: RUQ pain - possible acalculous cholecystitis Has provider been notified: Yes 07/10/21 14:23 Addiction Medicine Routine Consulting Provider: Daphnie Vargas Reason for consultation: etoh Consult to Care Team Routine Comment: Reason for consultation: etoh 07/10/21 14:27 Consult to Gastroenterology Routine Consulting Provider: [facility] G[facility]ology [facility] Reason for consultation: cholestatic jaundice DS: Diagnosis Discharge Diagnosis (1) Hypokalemia: Status: Acute (2) Alcoholic hepatitis: Status: Acute (3) Cholestatic jaundice: Status: Acute (4) Acute alcoholic hepatitis: Status: Acute DS: Summary Hospital Course Hospital Course: History of presenting illness. 35yo M with alcohol use disorder complicated by prior episodes of pancreatitis and hepatitis was sober for 3 months after his last admission for alcohol withdrawal, but then relapsed 8 weeks ago due to uncontrolled anxiety.? He's been drinking 750 mL of vodka daily as recently as this morning.? No prior seizures.? He developd intermittent, moderate-intensity, non-radiating RUQ pain approximately 1 week ago and then noticed worsening jaundice about 4 days ago.? No hematemesis, hematochezia, or melena.? No diarrhea.? He endorses nausea and vomiting and has been eating very little.? In the ED, he was noted to be jaundiced with Tbili of 21.6, AST 245, ALT 61.? Lactate was 6.1.? K was 3 and Mg 1.5.? US demonstrated? diffuse liver disease and gallbladder wall thickening without any calculi; sonographic Elizabeth sign was present. Hospital course 35yo M with alcohol use disorder complicated by past episodes of hepatitis, pancreatitis, and withdrawal presenting with RUQ pain and severe cholestatic jaundice and admitted to intermediate care unit with a diagnosis of cholestatic jaundice from alcoholic hepatitis,? HIDA + MRCP not suggestive of any other pathology, hepatitis serology negative, patient seen by Dr. Brizuela, he recommended IV methylprednisolone 32 mg daily repeat LFT showed persistent elevated total bilirubin but stable, patient clinically improved tolerating diet with no nausea vomiting, abdominal pain significantly improved, urine is now aged or disabled care worker color and more formed stool, since patient remains hemodynamically stable he is being discharged home on by mouth prednisone for total 4 weeks and recommended to repeat labs early next week and to be followed closely by Gastroenterology, immunological studies ordered by GI remains pending. Patient noted to have lactic acidosis likely due to dehydration and alcohol abuse with impaired clearance from hepatic dysfunction no sepsis was noted. In regard to alcohol intoxication with high risk for withdrawal patient was treated with phenobarb protocol and outpatient referrals have been given by care team Patient noted to have hypokalemia likely due to IV fluids and GI loss potassium was aggressively repleted and will have repeat BMP early next week Hypo magnesemia due to poor nutrition and alcohol use repleted and normalized Mild pancytopenia likely related to myelosuppression from alcohol recommends complete abstinence from alcohol Hypertension stable blood pressure, continue amlodipine DM2, with A1c 9.2 recommend to follow diabetic diet and close outpatient follow- up with PCP In regard to anxiety continue escitalopram Time Spent with Patient Time attestation: Total time spent providing and/or coordinating discharge services: Discharge coordination time: Greater than 30 minutes Quality: Stroke Does the patient have a stroke diagnosis?: No Physical Exam Vital Signs: Vital Signs: Last Vital Signs Temp 99.2 F 07/18/21 11:02 Pulse 94 07/18/21 11:02 Resp 20 07/18/21 11:02 BP 125/72 07/18/21 11:02 Pulse Ox 93 07/18/21 11:02 BMI result Body Mass Index 34.7 Gen:? Awake alert x3, no acute distress Icteric sclera Neck: supple, no JVD Lungs: clear to auscultation bilaterally Heart:? Regular rate rhythm,no murmurs Abd: soft, mild epigastric tenderness, bowel sounds audible , non-distended Ext:? Bilateral edema Skin:? jaundiced Neuro: alert and oriented x3, no focal findings, no asterixis Psych: appropriate affect ? DS: Data Data Completed and Pending Completed studies during hospitalization [Text1]: Procedures Detoxification Services for Substance Abuse Treatment (12/29/20) Labs on day of discharge: Laboratory Results - last 24 hr 07/17/21 07/18/21 07/18/21 20:48 06:00 07:17 Sodium 136 Potassium 3.1 L D Chloride 101 Carbon Dioxide 25 Anion Gap 13 BUN 4 L Creatinine 0.59 Estim Creat Clear Calc 227.8 Estimated GFR > 60 POC Glucose 149 H 102 Random Glucose 108 Calcium 7.4 L Magnesium 2.0 Total Bilirubin 23.5 H Direct Bilirubin 18.7 H AST 197 H ALT 65 H Alkaline Phosphatase 159 H Total Protein 5.0 L Albumin 2.6 L 07/18/21 11:02 Sodium Potassium Chloride Carbon Dioxide Anion Gap BUN Creatinine Estim Creat Clear Calc Estimated GFR POC Glucose 156 H Random Glucose Calcium Magnesium Total Bilirubin Direct Bilirubin AST ALT Alkaline Phosphatase Total Protein Albumin Discharge Plan Discharge Patient Disposition: Home, Self-Care Discharge Diagnosis: alcoholic hepatitis, alcohol use disorder Referrals: John Penny MD [Primary Care Provider] - 1 Week Mary Dillard MD [Physician] - 1 Week Discharge Medications: New prednisone 20 mg tablet 40 mg PO DAILY Qty: 60 RF: 0 potassium chloride 20 mEq tablet extended release 20 meq PO DAILY Qty: 7 RF: 0 Continued clonazepam 0.5 mg Tablet 0.5 mg PO BID PRN (Reason: Anxiety) RF: 0 amlodipine 5 mg Tablet 5 mg PO DAILY RF: 0 omeprazole 20 mg Capsule,Delayed Release(Dr/Ec) 20 mg PO DAILY PRN (Reason: Acid Reflux) RF: 0 escitalopram oxalate 10 mg Tablet 10 mg PO DAILY RF: 0 Discontinued gemfibrozil 600 mg Tablet 600 mg PO BIDAC RF: 0 Discharge Orders: Discharge Order (Routine); Ordered 07/18/21 Ordered By: Inessa Thornton Diet: advance to usual diet Activity on Discharge: As tolerated Stand Alone Forms: Patient Portal Discharge page, Work/School Release Other Ambulatory Orders: Basic Metabolic Panel (Routine) Timeframe: [id number] Facility: [facility] - Location: Laboratory Ordered By: Inessa Thornton Liver Panel (Routine) Timeframe: [id number] Facility: [facility] - Location: Laboratory Ordered By: Inessa Thornton Care Plan Goals: liver health sobriety Health Concerns: alcoholic hepatitis, alcohol use disorder Plan of Treatment: take steroids [prednisolone] as prescribed and follow up with GI in 1-2 week avoid alcohol Assessment: see Discharge Summary Patient Instructions: Abuse of Alcohol (DC), Alcoholic Hepatitis (DC) Discharge Date/Time: 07/18/21 12:44
[2021-07-19 14:21] LABS: Soluble Liver Ag Autoantibody <20.1 U (0.0-20.0)
== END 2021-07-18 12:44 | disposition home or self-care (01) | DRG 280 ==
LOC: HO.ED 13:24 → HO.EDOVER 14:59 → HO.IMC 07-11 19:55
PROVIDERS: Internal Medicine Gastroenterology; Physician Assistant; Admitting Provider Family Medicine; Emergency Provider Emergency Medicine; PCP Internal Medicine; Visit Provider Hospitalist
DX: K70.10 Alcoholic hepatitis without ascites (principal); D61.818 Other pancytopenia; K81.0 Acute cholecystitis; E87.2 Acidosis; E87.6 Hypokalemia; E83.42 Hypomagnesemia; F41.1 Generalized anxiety disorder; F10.229 Alcohol dependence with intoxication, unspecified; E11.9 Type 2 diabetes mellitus without complications; F17.210 Nicotine dependence, cigarettes, uncomplicated; Z71.6 Tobacco abuse counseling; F10.239 Alcohol dependence with withdrawal, unspecified; F32.A Depression, unspecified; Y90.2 Blood alcohol level of 40-59 mg/100 ml; Z20.822 Contact with and (suspected) exposure to COVID-19; Z91.041 Radiographic dye allergy status; Z79.899 Other long term (current) drug therapy
CPT/HCPCS: 36415; 74181; 76705; 78226; 80048; 80051; 80053; 80076; 80307; 81001; 81256; 82077; 82140; 82248; 82390; 82607; 82746; 82784; 82947; 82977; 83036; 83516; 83520; 83605; 83690; 83735; 85025; 85027; 85610; 85730; 86038; 86039; 86704; 86706; 86803; 87040; 87086; 87340; 87389; 87635; 99285; A9537; J1650; J1940; J2060; J2270; J2405; J2543; J2560; J2920; J3475

== ENCOUNTER 2021-07-23 07:24 | Outpatient (REF) | payer OTHER, SELFPAY ==
[2021-07-23 08:45] LABS: Alanine Aminotransferase 147 U/L (0-40); Albumin Level 3.1 g/dL (3.5-5.0); Alkaline Phosphatase 167 U/L (39-117); Anion Gap 12 (12-20); Aspartate Amino Transferase 363 U/L (5-37); Blood Urea Nitrogen 9 mg/dL (9-16); Calcium 7.4 mg/dL (8.4-10.2); Carbon Dioxide 22 mmol/L (22-29); Chloride 105 mmol/L (96-108); Estimated Glomerular Filt Rate > 60; Glucose Random 105 mg/dL (60-115); Potassium 3.3 mmol/L (3.3-5.1); Sodium 136 mmol/L (135-145); Total Protein 6.1 g/dL (6.5-8.0)
[2021-07-23 08:53] LABS: Bilirubin Total 23.7 mg/dL (0.0-1.0)
[2021-07-23 09:09] LABS: Bilirubin Direct 18.4 mg/dL (0.0-0.5)
== END 2021-07-23 07:25 | disposition home or self-care (01) ==
LOC: HO.LAB 07:24
PROVIDERS: PCP Internal Medicine; Visit Provider Hospitalist
DX: E87.6 Hypokalemia (principal); K70.10 Alcoholic hepatitis without ascites
CPT/HCPCS: 36415; 80048; 80076

== ENCOUNTER 2021-08-13 09:41 | Outpatient (REF) | payer OTHER, SELFPAY ==
[2021-08-13 10:53] LABS: MANUAL DIFF FLAG NO
[2021-08-13 10:55] LABS: Basophils Absolute Auto 0.1 X10*3/uL (0.0-0.2); Basophils Percent Auto 1.2 % (0-2); Eosinophils Absolute Auto 0.1 X10*3/uL (0.0-0.4); Eosinophils Percent Auto 1.4 % (0-4); Hematocrit 38.4 % (42.0-52.0); Hemoglobin 12.9 g/dl (14.0-18.0); Imm Gran Abs Auto 0.01 X10*3/uL (0.00-0.03); Imm Gran Pct Auto 0.2 % (0.0-0.4); Lymphocytes Absolute Auto 1.3 X10*3/uL (1.2-4.9); Lymphocytes Percent Auto 23.2 % (20-40); Mean Corpuscular HGB Conc 33.6 g/dl (31.0-36.0); Mean Corpuscular Hemoglobin 34.6 pg (27.0-33.0); Mean Corpuscular Volume 102.9 fL (80.0-98.0); Mean Platelet Volume 10.1 fL (9.4-12.4); Monocytes Absolute Auto 0.4 X10*3/uL (0.1-1.2); Monocytes Percent Auto 7.6 % (2-11); Neutrophils Absolute Auto 3.8 x10*3/uL (2.0-8.3); Neutrophils Percent Auto 66.4 % (45-73); Platelet Count 196 X10*3/uL (160-400); Red Blood Count 3.73 X10*6/uL (4.60-5.80); Red Cell Distribution Width 12.3 % (11.0-16.0); White Blood Count 5.7 X10*3/uL (4.8-10.8)
[2021-08-13 11:05] LABS: INTERNATIONAL NORM RATIO 1.2 (0.9-1.1); Prothrombin Time 13.7 SEC (9.9-13.0)
[2021-08-13 11:32] LABS: Alanine Aminotransferase 98 U/L (0-40); Albumin Level 3.7 g/dL (3.5-5.0); Alkaline Phosphatase 289 U/L (39-117); Anion Gap 12 (12-20); Aspartate Amino Transferase 171 U/L (5-37); Bilirubin Total 9.3 mg/dL (0.0-1.0); Blood Urea Nitrogen 6 mg/dL (9-16); Calcium 9.1 mg/dL (8.4-10.2); Carbon Dioxide 23 mmol/L (22-29); Chloride 107 mmol/L (96-108); Estimated Glomerular Filt Rate > 60; Glucose Random 363 mg/dL (60-115); Iron 63 mcg/dL (45-160); Percent Iron Saturation 19 % (15-50); Potassium 3.8 mmol/L (3.3-5.1); Sodium 138 mmol/L (135-145); Total Iron Binding Capacity 329 mcg/dL (228-428); Unsaturated Iron Binding 266 ug/dL
[2021-08-13 11:40] LABS: Ferritin 932 ng/mL (20-250); Vitamin D 25-OH Total 5.7 ng/mL (>30)
[2021-08-13 12:01] LABS: Folate 8.1 ng/mL (> or = 4.0); Vitamin B12 571 pg/mL (200-900)
[2021-08-16 15:51] LABS: Zinc 45 mcg/dL (60-130)
[2021-08-17 12:52] LABS: Vitamin B6 <2.0 ng/mL (2.1-21.7)
[2021-08-17 15:37] LABS: Vitamin A 16 mcg/dL (38-98)
[2021-08-17 19:31] LABS: Nicotinamide <20 ng/mL; Vit B3 - Nicotinic Acid 34 ng/mL
[2021-08-18 17:57] LABS: Vitamin B5 (Pantothenic Acid) <40 ng/mL (<275)
[2021-08-19 18:16] LABS: Beta-Gamma Tocopherol 6.1 mg/L (<=4.3)
[2021-08-20 10:36] LABS: Vitamin K1 1679 pg/mL (130-1500)
[2021-08-21 10:56] LABS: Vitamin C 0.1 mg/dL (0.2-2.1)
== END 2021-08-13 09:42 | disposition home or self-care (01) ==
LOC: HO.LAB 09:41
PROVIDERS: PCP Internal Medicine; Referring Provider Internal Medicine; Visit Provider Internal Medicine Gastroenterology
DX: K70.10 Alcoholic hepatitis without ascites (principal); K75.81 Nonalcoholic steatohepatitis (NASH); E46 Unspecified protein-calorie malnutrition; F10.20 Alcohol dependence, uncomplicated; Z87.891 Personal history of nicotine dependence
CPT/HCPCS: 36415; 80053; 82180; 82306; 82607; 82728; 82746; 83540; 84207; 84446; 84590; 84591; 84597; 84630; 85025; 85610

== ENCOUNTER 2021-10-30 10:43 | Outpatient (REF) | payer OTHER, SELFPAY ==
[2021-10-30 11:15] LABS: MANUAL DIFF FLAG NO
[2021-10-30 11:25] LABS: Ammonia 39 umol/L (13-55)
[2021-10-30 11:49] LABS: Basophils Absolute Auto 0.1 X10*3/uL (0.0-0.2); Basophils Percent Auto 1.6 % (0-2); Eosinophils Absolute Auto 0.1 X10*3/uL (0.0-0.4); Eosinophils Percent Auto 1.4 % (0-4); Hematocrit 38.8 % (42.0-52.0); Hemoglobin 13.1 g/dl (14.0-18.0); Imm Gran Abs Auto 0.01 X10*3/uL (0.00-0.03); Imm Gran Pct Auto 0.2 % (0.0-0.4); Lymphocytes Absolute Auto 1.6 X10*3/uL (1.2-4.9); Lymphocytes Percent Auto 27.7 % (20-40); Mean Corpuscular HGB Conc 33.8 g/dl (31.0-36.0); Mean Corpuscular Hemoglobin 29.4 pg (27.0-33.0); Mean Platelet Volume 10.5 fL (9.4-12.4); Monocytes Absolute Auto 0.7 X10*3/uL (0.1-1.2); Neutrophils Absolute Auto 3.2 x10*3/uL (2.0-8.3); Neutrophils Percent Auto 57.1 % (45-73); Platelet Count 155 X10*3/uL (160-400); Red Blood Count 4.46 X10*6/uL (4.60-5.80); Red Cell Distribution Width 14.4 % (11.0-16.0); White Blood Count 5.6 X10*3/uL (4.8-10.8)
[2021-10-30 12:01] LABS: Estimated Average Glucose 177 mg/dL; Hemoglobin A1c % 7.8 %
[2021-10-30 12:30] LABS: Appearance Urine CLEAR; Color Urine YELLOW; Glucose Urine UA NEG (NEG); Leukocyte Esterase Urine NEG (NEG); Nitrite Urine NEG (NEG); Specific Gravity - Urine >= 1.030 (1.005-1.025); Urine Blood NEG (NEG); Urine Ketones 5 MG/DL (NEG); Urine Protein NEG (NEG-TRACE)
[2021-10-30 12:40] LABS: Alanine Aminotransferase 51 U/L (0-40); Albumin Level 4.1 g/dL (3.5-5.0); Alkaline Phosphatase 162 U/L (39-117); Anion Gap 13 (12-20); Aspartate Amino Transferase 26 U/L (5-37); Bilirubin Total 1.1 mg/dL (0.0-1.0); Blood Urea Nitrogen 5 mg/dL (9-16); Calcium 9.6 mg/dL (8.4-10.2); Carbon Dioxide 26 mmol/L (22-29); Chloride 103 mmol/L (96-108); Cholesterol 171 mg/dL; Estimated Glomerular Filt Rate > 60; Glucose Fasting 152 mg/dL (60-99); HDL Cholesterol 46 mg/dL; Iron 53 mcg/dL (45-160); LDL Cholesterol Calculated 109 mg/dl; Percent Iron Saturation 15 % (15-50); Sodium 138 mmol/L (135-145); Total Iron Binding Capacity 353 mcg/dL (228-428); Total Protein 7.1 g/dL (6.5-8.0); Triglycerides 84 mg/dL; Unsaturated Iron Binding 300 ug/dL
[2021-10-30 12:53] LABS: Creatinine Urine 136.45 mg/dL; Microalbum/Creatinine Ratio Ur 22.7 ug/mg cr
== END 2021-10-30 10:44 | disposition home or self-care (01) ==
LOC: HO.LAB 10:43
PROVIDERS: PCP Internal Medicine; Visit Provider Internal Medicine
DX: Z00.00 Encounter for general adult medical examination without abnormal findings (principal); E11.9 Type 2 diabetes mellitus without complications; R79.83 Abnormal findings of blood amino-acid level
CPT/HCPCS: 36415; 80053; 80061; 81003; 82043; 82140; 83036; 83540; 85025